=== PATIENT | female | born 1990 | race Caucasian/White ===

== ENCOUNTER → 2017-12-01 12:44 | Outpatient (CLI) | payer MEDICAID, SELFPAY ==
[2017-11-17 09:31] VITALS: BP 120/76; BMI 36.1
== END ==
PROVIDERS: Visit Provider Obstetrics & Gynecology
DX: O23.41 Unspecified infection of urinary tract in pregnancy, first trimester (principal); Z3A.00 Weeks of gestation of pregnancy not specified
CPT/HCPCS: 87070; 87077; 87086; 87088; 87205

== ENCOUNTER → 2017-12-27 10:50 | Outpatient (CLI) | payer MEDICAID, SELFPAY ==
[2017-12-27 11:00] LABS: Mucous, Urine 0 SEEN /hpf (<or=2+)
[2017-12-27 12:53] LABS: Glucose, Dipstick Normal (Normal); Ketone-Dipstick 5 mg/dl (Negative); Leukocyte Esterase-Dipstick 500 /ul (Negative); Nitrite-Dipstick Negative (Negative); Occult Blood-Urine 250 /ul (Negative); Protein-Dipstick 30 mg/dl (Negative); Urine Bilirubin Dipstick Negative (Negative); Urine Urobilinogen Normal (Normal)
[2017-12-27 12:54] LABS: Color, Urine Yellow (Yellow); Urine Clarity Cloudy (Clear)
[2017-12-27 12:56] LABS: Bacteria 3+ /hpf (None Seen); Red Blood Cells-Urine 10-25 SEEN /hpf (0-5); Squamous Epithelial Cells - UA 5-10 SEEN /hpf (5-10); White Blood Cells 10-25 SEEN /hpf (0-5)
== END ==
DX: R31.9 Hematuria, unspecified (principal)
CPT/HCPCS: 81001; 87086; 87088; 87186

== ENCOUNTER → 2018-01-07 10:51 | Outpatient (CLI) | payer MEDICAID, SELFPAY ==
[2018-01-07 11:48] LABS: Absolute Lymphocyte Count 2.73 X10^3/ul (0.83-4.51); Absolute Neutrophil Count 5.9 X10^3/uL (2.0-7.7); Basophil# 0.02 X10^3/uL; Basophil% 0.2 % (0-1); Eosinophil# 0.07 X10^3/uL; Eosinophils% 0.7 % (0-5); Hematocrit 35.6 % (37-47); Hemoglobin 11.9 g/dl (12.0-15.0); Lymphocyte # 2.73 X10^3/ul (4.0); Lymphocyte % 28.1 % (19-41); Mean Corp Hgb Conc 33.4 g/gl (32-36); Mean Corpuscular Hgb 27.5 pg (27.0-32.0); Mean Corpuscular Volume 82.4 fL (81-99); Mean Platelet Vol. 13.1 fl (6.2-12.0); Monocyte# 0.94 X10^3/uL; Monocyte% 9.7 % (0-10); Neutrophil # 5.89 X10^3/uL (2.7-7.7); Neutrophil % 60.8 % (47-70); POSITIVE COUNT NO; POSITIVE DIFFERENTIAL NO; POSITIVE MORPHOLOGY NO; Platelet Count 224 K/mm3 (150-450); RBC Distribution Width SD 38.4 fl (35.1-43.9); Red Blood Count 4.32 M/mm3 (4.2-5.4); White Blood Count 9.7 K/mm3 (4.4-11.0)
[2018-01-07 12:26] LABS: ALB/GLOB Ratio 0.5 RATIO (0.9-2.4); AST(SGOT) 13 U/L (15-37); Alanine Aminotransfer ALT/SGPT 11 U/L (13-56); Albumin, Serum 2.4 g/dL (3.2-5.0); Alkaline Phosphatase 120 U/L (45-117); Anion Gap 9 (5-15); BUN 11 mg/dL (7-18); BUN/Creat Ratio 23.2 RATIO (10-20); Calcium,Total 8.7 mg/dL (8.5-10.1); Chloride 107 mmol/L (98-107); Creatinine, Serum 0.47 mg/dL (0.55-1.02); EST Glomerular Filtration Rate 166 mL/min (>60); Est Glom Filt Rate - Afr Amer 201 mL/min (>60); Globulin 4.6 g/dL (2.2-4.2); Glucose 91 mg/dL (74-106); LDH 166 U/L (84-246); Sodium Level 139 mmol/L (136-145); Uric Acid 4.2 mg/dL (2.6-6.0)
[2018-01-07 13:11] LABS: Protein, Urine (Random) 49.8 mg/dL (<11.9); Protein:Creat Ratio 429 mg/g CRE (0-200)
[2018-01-07 14:34] LABS: HIV - WCH Non-Reactive (Nonreactive); Rubella IgG 53.7 IU/mL
[2018-01-14 03:10] LABS: Rapid Plasmin Reagin (RPR) NONREACTIVE (NONREACTIVE)
== END ==
PROVIDERS: Visit Provider Obstetrics & Gynecology
DX: O09.92 Supervision of high risk pregnancy, unspecified, second trimester (principal); O10.919 Unspecified pre-existing hypertension complicating pregnancy, unspecified trimester; Z3A.00 Weeks of gestation of pregnancy not specified
CPT/HCPCS: 36415; 80053; 82570; 83615; 84156; 84550; 85025; 86592; 86703; 86762; 86850; 86900

== ENCOUNTER → 2018-01-07 14:51 | Outpatient (CLI) | payer MEDICAID, SELFPAY ==
[2018-01-07 15:29] LABS: Protein, Urine (Random) 78.7 mg/dL (<11.9); Protein:Creat Ratio 463 mg/g CRE (0-200)
[2018-01-07 16:06] LABS: Group B Strep DNA By PCR POSITIVE (Negative); Probe Check PASS
== END ==
PROVIDERS: Visit Provider Obstetrics & Gynecology
DX: O09.92 Supervision of high risk pregnancy, unspecified, second trimester (principal); O10.919 Unspecified pre-existing hypertension complicating pregnancy, unspecified trimester; Z3A.00 Weeks of gestation of pregnancy not specified
CPT/HCPCS: 82570; 84156; 87653

== ENCOUNTER 2018-01-09 18:35 | Inpatient (IN) | payer MEDICAID, SELFPAY ==
[2018-01-08 15:08] VITALS: BMI 38.8
[2018-01-08 16:02] LABS: Hematocrit 36.2 % (37-47); Hemoglobin 12.1 g/dl (12.0-15.0); Mean Corp Hgb Conc 33.4 g/gl (32-36); Mean Corpuscular Hgb 27.6 pg (27.0-32.0); Mean Corpuscular Volume 82.5 fL (81-99); Mean Platelet Vol. 13.7 fl (6.2-12.0); Platelet Count 235 K/mm3 (150-450); RBC Distribution Width CV 13.2 % (11.6-14.6); Red Blood Count 4.39 M/mm3 (4.2-5.4); White Blood Count 10.2 K/mm3 (4.4-11.0)
[2018-01-08 16:06] LABS: Bedside Glucose 72 mg/dL (70-110)
[2018-01-08 16:07] LABS: Scan Indicated on CBC? Y/N NO
[2018-01-08 16:13] LABS: AST(SGOT) 14 U/L (15-37); Alanine Aminotransfer ALT/SGPT 10 U/L (13-56); Creatinine, Serum 0.43 mg/dL (0.55-1.02); EST Glomerular Filtration Rate 184 mL/min (>60); Est Glom Filt Rate - Afr Amer 222 mL/min (>60); Estimated Creatinine Clearance 203.56 ml/min; Uric Acid 4.3 mg/dL (2.6-6.0)
[2018-01-08 16:40] LABS: Protein, Urine (Random) 108.3 mg/dL (<11.9); Protein:Creat Ratio 418 mg/g CRE (0-200)
[2018-01-08 16:49] LABS: International Normalized Ratio 1.1; Partial Thromboplast Time 29.3 Seconds (24.1-36.2); Prothrombin Time (Protime)PT. 13.9 SECONDS (11.7-14.9)
[2018-01-08] MEDS: NIFEdipine 30 MG Tablet PO (17:00)
[2018-01-08] MEDS: Cephalexin 500 MG Capsule PO ×2 (17:01→22:58)
[2018-01-08 19:56] LABS: Bedside Glucose 152 mg/dL (70-110)
[2018-01-08] MEDS: Insulin NPH Human 100 UNITS/ML PEN 13 UNITS SC (21:59)
[2018-01-08] MEDS: Acetaminophen 325 MG Tablet 650 MG PO (22:58)
[2018-01-09] VITALS (11 sets, daily range): BP systolic 145–186; BP diastolic 72–96; PULSE 85–112; RESP 18–20; TEMP 36.4–36.8; O2SAT 96–98
[2018-01-09] MEDS: Cephalexin 500 MG Capsule PO ×3 (05:31→22:26)
[2018-01-09 05:46] LABS: Bedside Glucose 130 mg/dL (70-110)
--- NOTE | 2018-01-09 06:34 | PCM.HP.OB ---
- Problem List (1) Pre-eclampsia superimposed on chronic hypertension Status: Acute (2) Polyhydramnios Status: Acute Qualifiers: Comment: Seen at follow up growth US with M on 12/02/17 (3) Supervision of high-risk Status: Acute Qualifiers: Comment: PRR DAVID 02/18/18 adeline Whelan Nikita (4) Diabetes mellitus affecting in second trimester Status: Acute Comment: Class B follows with [facility], testing 2 times a week starting at 32 weeks, growth assessment every 4 weeks, co-manage visit in [address] Manuel Swain. (5) History of pre-eclampsia in prior , currently in second trimester Status: Acute Comment: severe preeclampsia delivered at 28 weeks. negative APL workup, on baby ASA (6) History of delivery, currently Status: Acute Comment: considering - 63.7 percent chance of success, info given and consent signed plans TL (7) UTI (urinary tract infection) in in first trimester Status: Acute Comment: several utis- recommend daily keflex to prevent (8) Chronic hypertension affecting Status: Acute Comment: procardia 60mg XL History Date of Admission: 01/08/18 Final DAVID: 02/18/18 Gestational age: 34 Weeks and 2 Days History of this : 27 yo @ 34w1d presents with superimposed preeclampsia on cHTN. she has had chtn well controlled in this and then recently developed elevated bps and proteinuria yesterday. she denies any ALDRICH or BV. she has had some nausea and vomiting. she denies any vb lof and admits good fm. BS are well controlled on insulin. Pertinent Past Medical History: Medical History Diabetes (Acute) Preeclampsia (Acute) Hypertension (Chronic) Surgical History delivery delivered (Acute) Family History Grandmother Diabetes Hypertension Breast cancer Cancer Lung Grandfather Diabetes Father Diabetes Social History Smoking Status: Never smoker alcohol intake: never substance use type: does not use what type of physical activity do you participate in: none seatbelt use: always do you feel safe at home: Yes additional social history: Spouse Yuval Pregancy History 2 Elective abortions Hx Para 1 Spontaneous abortions Hx # Term Pregnancies Ectopic pregnancies Hx # Pregnancies Multiple births # of living children Past Pregnancies Del. Date Name GA/Weeks Outcome Route Bth Weight Infant Gen Labor Lgth Anesthesia Del Locatn Provider FOB Unknown 2010 Abrial 28 live - severe preeclampsia 2lbs 3oz Female [facility] Allergies No Known Allergies Allergy (Verified 01/08/18 15:15) Current Medications Acetaminophen (Tylenol) 650 mg PO Q6H PRN PRN PRN Reason: PAIN Last Admin: 01/08/18 22:58 Dose: 650 mg Cephalexin (Keflex) 500 mg PO TID DESTINY Last Admin: 01/09/18 05:31 Dose: 500 mg Dexamethasone Sodium Phosphate (Decadron) 6 mg IM Q12H DESTINY Stop: 01/10/18 05:01 Last Admin: 01/09/18 05:31 Dose: 6 mg Insulin Aspart (Novolog Flexpen (Bkc)) 17 units SC BREAKFAST DESTINY Insulin Aspart (Novolog Flexpen (Bkc)) 13 units SC LUNCH DESTINY Insulin Aspart (Novolog Flexpen (Bkc)) 26 units SC SUPPER DESTINY Insulin Human NPH (Humulin N (Bkc)) 13 units SC QHS DESTINY Last Admin: 01/08/18 21:59 Dose: 13 units Insulin Human NPH (Humulin N (Bkc)) 37 units SC BREAKFAST DESTINY Nifedipine (Procardia Xl) 60 mg PO DAILY [facility] Smoking Status: Never smoker Alcohol: None Drug Use: none Number of Fetus(es): 1 - fhts 140s moderate variability reactive no decels category I tracing toco irritability Review of Systems Constitutional: Denies: Chills, Fever, Weight Change Eyes: Denies: Blurred vision HEENT: Denies: Head Aches, Sinus Congestion, Sinus Drainage Cardiovascular: Denies: Chest Pain, Palpitations Respiratory: Denies: Cough, Shortness of breath at rest, Sputum production Gastrointestinal: Reports: Nausea, Vomiting. Denies: Abdominal Pain Genitourinary: Denies: Dysuria Gynecological: Denies: Vaginal bleeding, Vaginal discharge Musculoskeletal: Denies: Joint Pain, Joint Tenderness Skin: Denies: Rash, Wounds Neurological: Denies: Numbness, Tingling, Focal weakness Psychiatric: Denies: Anxiety, Depression Hematologic/ Lymphatic: Denies: Easy Bruising, Easy Bleeding Physical Exam General: Alert, Oriented x3, No apparent distress Cardiovascular: Regular rate Lungs: Normal air movement Abdomen: Soft, Non Tender, Gravid Extremities:: No edema Estimated gestational size: Large for gestational age Presentation: Cephalic Assessment/Plan Active and Suspected Problems (Last Reviewed 01/07/18 @ 09:53 by Glo Restrepo) Pre-eclampsia superimposed on chronic hypertension (Acute) 27 yo @ 34w1d presents with cHTN and SI preeclampsia with mild features 1. cHTN with SI preeclampsia with mild features- admit for STO, monitor bps, check labs and repeat urine protein creatinine ratio. continue procardia 60mg XL 2. prematurity- previous reaction to BMZ will give dexamethasone 3. previous csection- if cervix favorable or IAL plan TOLAC otherwise plan RLTCS and BTL 4. polyhdramnios 5. insulin dependent diabetes- increase all insulin 10% except dinner insulin due to low blood sugar this afternoon secondary to skipping lunch 6. recurrent UTI- on keflex treatment right now plan prophylaxis afterwards
--- NOTE | 2018-01-09 06:37 | HP.PCM_ITS ---
- Problem List (1) Pre-eclampsia superimposed on chronic hypertension Status: Acute (2) Polyhydramnios Status: Acute Qualifiers: Comment: Seen at follow up growth US with M on 12/02/17 (3) Supervision of high-risk Status: Acute Qualifiers: Comment: PRR DAVID 02/18/18 adeline Whelan Nikita (4) Diabetes mellitus affecting in second trimester Status: Acute Comment: Class B [facility], testing 2 times a week starting at 32 weeks, growth assessment every 4 weeks, co-manage visit in [address] Manuel Swain. (5) History of pre-eclampsia in prior , currently in second trimester Status: Acute Comment: severe preeclampsia delivered at 28 weeks. negative APL workup, on baby ASA (6) History of delivery, currently Status: Acute Comment: considering - 63.7 percent chance of success, info given and consent signed plans TL (7) UTI (urinary tract infection) in in first trimester Status: Acute Comment: several utis- recommend daily keflex to prevent (8) Chronic hypertension affecting Status: Acute Comment: procardia 60mg XL History Date of Admission: 01/08/18 Final DAVID: 02/18/18 Gestational age: 34 Weeks and 2 Days History of this : 27 yo @ 34w1d presents with superimposed preeclampsia on cHTN. she has had chtn well controlled in this and then recently developed elevated bps and proteinuria yesterday. she denies any ALDRICH or BV. she has had some nausea and vomiting. she denies any vb lof and admits good fm. BS are well controlled on insulin. Pertinent Past Medical History: Medical History Diabetes (Acute) Preeclampsia (Acute) Hypertension (Chronic) Surgical History delivery delivered (Acute) Family History Grandmother Diabetes Hypertension Breast cancer Cancer Lung Grandfather Diabetes Father Diabetes Social History Smoking Status: Never smoker alcohol intake: never substance use type: does not use what type of physical activity do you participate in: none seatbelt use: always do you feel safe at home: Yes additional social history: Spouse Yuval Pregancy History 2 2 Elective abortions Hx Para 1 Spontaneous abortions Hx # Term Pregnancies Ectopic pregnancies Hx # Pregnancies Multiple births # of living children Past Pregnancies Del. Date Name GA/Weeks Outcome Route Bth Weight Infant Gen Labor Lgth Anesthesia Del [place] Provider FOB Unknown 2010 Abrial 28 live - severe preeclampsia 2lbs 3oz Female [facility] Allergies No Known Allergies Allergy (Verified 01/08/18 15:15) Current Medications Acetaminophen (Tylenol) 650 mg PO Q6H PRN PRN PRN Reason: PAIN Last Admin: 01/08/18 22:58 Dose: 650 mg Cephalexin (Keflex) 500 mg PO TID DESTINY Last Admin: 01/09/18 05:31 Dose: 500 mg Dexamethasone Sodium Phosphate (Decadron) 6 mg IM Q12H DESTINY Stop: 01/10/18 05:01 Last Admin: 01/09/18 05:31 Dose: 6 mg Insulin Aspart (Novolog Flexpen (Bkc)) 17 units SC BREAKFAST DESTINY Insulin Aspart (Novolog Flexpen (Bkc)) 13 units SC LUNCH DESTINY Insulin Aspart (Novolog Flexpen (Bkc)) 26 units SC SUPPER DESTINY Insulin Human NPH (Humulin N (Bkc)) 13 units SC QHS DESTINY Last Admin: 01/08/18 21:59 Dose: 13 units Insulin Human NPH (Humulin N (Bkc)) 37 units SC BREAKFAST DESTINY Nifedipine (Procardia Xl) 60 mg PO DAILY [facility] Smoking Status: Never smoker Alcohol: None Drug Use: none Number of Fetus(es): 1 - fhts 140s moderate variability reactive no decels category I tracing toco irritability Review of Systems Constitutional: Denies: Chills, Fever, Weight Change Eyes: Denies: Blurred vision HEENT: Denies: Head Aches, Sinus Congestion, Sinus Drainage Cardiovascular: Denies: Chest Pain, Palpitations Respiratory: Denies: Cough, Shortness of breath at rest, Sputum production Gastrointestinal: Reports: Nausea, Vomiting. Denies: Abdominal Pain Genitourinary: Denies: Dysuria Gynecological: Denies: Vaginal bleeding, Vaginal discharge Musculoskeletal: Denies: Joint Pain, Joint Tenderness Skin: Denies: Rash, Wounds Neurological: Denies: Numbness, Tingling, Focal weakness Psychiatric: Denies: Anxiety, Depression Hematologic/ Lymphatic: Denies: Easy Bruising, Easy Bleeding Physical Exam General: Alert, Oriented x3, No apparent distress Cardiovascular: Regular rate Lungs: Normal air movement Abdomen: Soft, Non Tender, Gravid Extremities:: No edema Estimated gestational size: Large for gestational age Presentation: Cephalic Assessment/Plan Active and Suspected Problems (Last Reviewed 01/07/18 @ 09:53 by Glo Restrepo) Pre-eclampsia superimposed on chronic hypertension (Acute) 27 yo @ 34w1d presents with cHTN and SI preeclampsia with mild features 1. cHTN with SI preeclampsia with mild features- admit for STO, monitor bps, check labs and repeat urine protein creatinine ratio. continue procardia 60mg XL 2. prematurity- previous reaction to BMZ will give dexamethasone 3. previous csection- if cervix favorable or IAL plan TOLAC otherwise plan RLTCS and BTL 4. polyhdramnios 5. insulin dependent diabetes- increase all insulin 10% except dinner insulin due to low blood sugar this afternoon secondary to skipping lunch 6. recurrent UTI- on keflex treatment right now plan prophylaxis afterwards
[2018-01-09] MEDS: 0.9 % NaCl (Sterile) Posiflush 10 mL IV ×2 (06:44→17:47)
--- NOTE | 2018-01-09 06:44 | PN.OBGYN_ITS ---
Patient Problems: Active and Suspected Problems (Last Reviewed 01/07/18 @ 09:53 by Glo Restrepo) Pre-eclampsia superimposed on chronic hypertension (Acute) Subjective: doing well bps stable normal to mildly elevated no ALDRICH BV NV - Physical Exam General: Alert, Oriented x3 Weight: 263 lb 0.183 oz Body Mass Index (BMI) 38.8 Finger Stick Blood Glucose 156 Laboratory Tests Past 24 Hrs 01/08/18 01/08/18 01/08/18 15:20 15:20 15:20 WBC 10.2 RBC 4.39 Hgb 12.1 Hct 36.2 L MCV 82.5 MCH 27.6 MCHC 33.4 RDW 13.2 RDW Differential 40.0 Plt Count 235 MPV 13.7 H PT 13.9 INR 1.1 APTT 29.3 Creatinine 0.43 L Estim Creat Clear Calc 203.56 Est GFR (MDRD) Af Amer 222 Est GFR (MDRD) Non-Af 184 Uric Acid 4.3 AST 14 L ALT 10 L U Random Total Protein Urine Creatinine Protein/Creatinin Ratio 01/08/18 16:10 WBC RBC Hgb Hct MCV MCH MCHC RDW RDW Differential Plt Count MPV PT INR APTT Creatinine Estim Creat Clear Calc Est GFR (MDRD) Af Amer Est GFR (MDRD) Non-Af Uric Acid AST ALT U Random Total Protein 108.3 H Urine Creatinine 259.00 Protein/Creatinin Ratio 418 H POC Glucose 01/09/18 01/08/18 01/08/18 05:28 19:48 15:56 POC Glucose 130 H 152 H 72 Medical Necessity - Tobacco Use Smoking Status: Never smoker Assessment/Plan Active and Suspected Problems (Last Reviewed 01/07/18 @ 09:53 by Glo Restrepo) Pre-eclampsia superimposed on chronic hypertension (Acute) 27 yo @ 34w1d presents with cHTN and SI preeclampsia with mild features 1. cHTN with SI preeclampsia with mild features- STO, continue procardia 60mg XL , stable 2. prematurity- dexamethasone anticipate discharge after last dose 3. previous csection- if cervix favorable or IAL plan TOLAC otherwise plan RLTCS and BTL 4. polyhdramnios 5. insulin dependent diabetes- continue increased insulin regimen due to steroid administration. increase dinner and bedtime insulin 6. recurrent UTI- on keflex treatment right now plan prophylaxis afterwards
[2018-01-09] MEDS: Insulin NPH Human 100 UNITS/ML PEN 37 UNITS SC (09:12)
[2018-01-09] MEDS: NIFEdipine 60 MG Tablet PO (09:18)
[2018-01-09 10:46] LABS: Bedside Glucose 213 mg/dL (70-110)
[2018-01-09] MEDS: Acetaminophen 325 MG Tablet 650 MG PO (11:02)
[2018-01-09 14:26] LABS: Bedside Glucose 174 mg/dL (70-110)
[2018-01-09] MEDS: oxyCODONE 5 MG Tablet PO (16:30)
[2018-01-09 16:32] LABS: Hematocrit 33.5 % (37-47); Hemoglobin 11.2 g/dl (12.0-15.0); Mean Corp Hgb Conc 33.4 g/gl (32-36); Mean Corpuscular Hgb 27.6 pg (27.0-32.0); Mean Corpuscular Volume 82.5 fL (81-99); Mean Platelet Vol. 12.9 fl (6.2-12.0); Platelet Count 219 K/mm3 (150-450); RBC Distribution Width CV 13.2 % (11.6-14.6); RBC Distribution Width SD 40.1 fl (35.1-43.9); Red Blood Count 4.06 M/mm3 (4.2-5.4); White Blood Count 11.9 K/mm3 (4.4-11.0)
[2018-01-09 16:33] LABS: Scan Indicated on CBC? Y/N NO
[2018-01-09 17:02] LABS: ALB/GLOB Ratio 0.5 RATIO (0.9-2.4); AST(SGOT) 13 U/L (15-37); Alanine Aminotransfer ALT/SGPT 12 U/L (13-56); Albumin, Serum 2.3 g/dL (3.2-5.0); Alkaline Phosphatase 120 U/L (45-117); Anion Gap 12 (5-15); BUN 17 mg/dL (7-18); BUN/Creat Ratio 24.9 RATIO (10-20); Calcium,Total 8.5 mg/dL (8.5-10.1); Chloride 105 mmol/L (98-107); Creatinine, Serum 0.68 mg/dL (0.55-1.02); EST Glomerular Filtration Rate 109 mL/min (>60); Est Glom Filt Rate - Afr Amer 132 mL/min (>60); Estimated Creatinine Clearance 128.72 ml/min; Globulin 4.6 g/dL (2.2-4.2); Glucose 179 mg/dL (74-106); Protein, Total 6.9 g/dL (6.4-8.2); Sodium Level 138 mmol/L (136-145)
[2018-01-09] MEDS: 0.9% Saline Lock 10 ML Syringe IV (18:45)
[2018-01-09] MEDS: Sodium Citrate/Citric Acid 30 ML UDC PO (18:55)
--- NOTE | 2018-01-09 18:56 | PCM.PN.OB ---
Patient Problems: Active and Suspected Problems (Last Reviewed 01/07/18 @ 09:53 by Glo Restrepo) Pre-eclampsia superimposed on chronic hypertension (Acute) - Physical Exam General: Alert, Oriented x3 Lungs: Normal air movement Cardiovascular: Regular rate Abdomen: Soft, Non Tender, Gravid Extremities: Edema Skin: No rashes Weight: 263 lb 0.183 oz Body Mass Index (BMI) 38.8 Finger Stick Blood Glucose 156 Laboratory Tests Past 24 Hrs 01/09/18 01/09/18 16:15 16:15 WBC 11.9 H RBC 4.06 L Hgb 11.2 L Hct 33.5 L MCV 82.5 MCH 27.6 MCHC 33.4 RDW 13.2 RDW Differential 40.1 Plt Count 219 MPV 12.9 H Sodium 138 Potassium 4.0 Chloride 105 Carbon Dioxide 21.0 Anion Gap 12 BUN 17 Creatinine 0.68 Estim Creat Clear Calc 128.72 Est GFR (MDRD) Af Amer 132 Est GFR (MDRD) Non-Af 109 BUN/Creatinine Ratio 24.9 H Glucose 179 H Calcium 8.5 Total Bilirubin 0.20 AST 13 L ALT 12 L Alkaline Phosphatase 120 H Total Protein 6.9 Albumin 2.3 L Globulin 4.6 H Albumin/Globulin Ratio 0.5 L POC Glucose 01/09/18 01/09/18 01/09/18 14:17 10:40 05:28 POC Glucose 174 H 213 H 130 H 01/08/18 19:48 POC Glucose 152 H Medical Necessity - Tobacco Use Smoking Status: Never smoker Assessment/Plan Active and Suspected Problems (Last Reviewed 01/07/18 @ 09:53 by Glo Restrepo) Pre-eclampsia superimposed on chronic hypertension (Acute) 27 yo @ 34w1d presents with cHTN and SI preeclampsia with severe features 1. new onset severe features, headache with severely elevated bps. discussed with MFM- recommend immediate delivery. start magnesium and give iv labetalol PRN 2. prematurity- s/p 24 hour dexamethasone 3. previous csection- unfavorable cervix recommend immediate csection. patient still desires BTL. 4. diabetes- check bs now-154 give 2 units novolog right now
[2018-01-09] MEDS: Lactated Ringers 1,000 ML 999 ML IV (19:04)
[2018-01-09 19:15] LABS: Bedside Glucose 158 mg/dL (70-110)
[2018-01-09] MEDS: Oxytocin 30 units/NS 500 ml 30 UNITS/500 ML IV.SOLN 167 UNITS IV (19:54)
--- NOTE | 2018-01-09 20:00 | FALS_PTH ---
PATIENT: EVA CASTRO LOC: WP U#:[id number] AGE/SX: 27/F ROOM: WP013 RE01/09/[address]: Dr. Ainsley Calderon MD : 1990 BED: 1 DIS: 01/11/2018 SPEC #: [id number] RECD: 01/09/18 22:30 STATUS: JAYSON KASSI #: [id number] BRITTANY: 01/09/18 20:[address]: Ainsley Calderon DEPT: SURGICAL PATHOLOGY RECD BY: José Miguel Moon ENTERED: 01/10/18 13:04 SP TYPE: FALL TUBES OTHR DR: No Primary Care Phys Tissues: Fallopian tube Procedures: Surgery Specimen Level II HEADER OPERATION: Bilateral salpingectomy PRE-OP DIAGNOSIS: Not noted TISSUE SUBMITTED: Fallopian tubes MICROSCOPIC DIAGNOSIS Bilateral fallopian tubes, bilateral salpingectomy: Completely transected segment of bilateral fallopian tubes, no pathologic diagnosis. ROBERT:marly 01/11/18 MICROSCOPIC DESCRIPTION Slides are reviewed. GROSS DESCRIPTION Received is one container labeled with the patient's name and not further designated. The specimen consists of two tubular pieces of stark soft tissue consistent with portion of fallopian tube. The fimbrial end is not identified. The right tube is identified by a suture. The right tube measures 3 cm in length and 0.5 cm in diameter. The left tube measures 3 cm in length and 0.5 cm in diameter. The entire specimen is submitted in two cassettes as follows: 1 - right fallopian tube, 2 - left fallopian tube. Both pieces will be serially sectioned at the time of embedding. / SJ:marly 01/10/18 TC:4 CPT: 03180 x2
[2018-01-09] MEDS: Ketorolac 30 MG/ML Syringe IV (20:22)
--- NOTE | 2018-01-09 20:36 | PCM.OPRPT ---
Problem List (1) Pre-eclampsia superimposed on chronic hypertension Status: Acute (2) Polyhydramnios Status: Acute Qualifiers: Comment: Seen at follow up growth US with M on 12/02/17 (3) Supervision of high-risk Status: Acute Qualifiers: Comment: PRR DAIVD 02/18/18 boy Bronson Whelan Nikita (4) Diabetes mellitus affecting in second trimester Status: Acute Comment: Class B follows with [facility], testing 2 times a week starting at 32 weeks, growth assessment every 4 weeks, co-manage visit in [address] Manuel Swain. (5) History of pre-eclampsia in prior , currently in second trimester Status: Acute Comment: severe preeclampsia delivered at 28 weeks. negative APL workup, on baby ASA (6) History of delivery, currently Status: Acute Comment: considering - 63.7 percent chance of success, info given and consent signed plans TL (7) UTI (urinary tract infection) in in first trimester Status: Acute Comment: several utis- recommend daily keflex to prevent (8) Chronic hypertension affecting Status: Acute Comment: procardia 60mg XL Report of Operation Date of Procedure: 01/09/18 Pre-Operative Diagnosis: Insulin-dependent diabetes, chronic hypertension with superimposed preeclampsia with severe features, previous , desired sterilization, 34 weeks 2 days Post-Operative Diagnosis: Same Surgery/Procedure Performed:: Repeat low transverse and bilateral tubal ligation Via Metcalfe method Description of Surgical Findings:: Normal uterus tubes and ovaries 2 cm fundal subserosal fibroid, thin lower uterine segment, minimal scar tissue trashman: Chayo Presley Type of Anesthesia:: Spinal Special Medications: Ancef, magnesium Specimen's removed: Male infant vertex presentation Drains: Catheter Estimated Blood Loss (mL): 800cc Fluids Replaced: Crystalloid Description of Procedure: The patient is a 27-year-old at 4 weeks 2 days presents with insulin-dependent diabetes chronic hypertension with superimposed preeclampsia with severe features. Patient presented for monitoring and steroids and initially had mildly elevated blood pressures and then after 24 hours developed severely elevated blood pressure persistent headache. Phone consultation with [facility] recommended immediate delivery. Spinal anesthesia was placed without difficulty. Patiño catheter was placed. The patient was placed in the dorsal supine position with leftward tilt. Patient was prepped and draped in the normal sterile fashion. Pfannenstiel skin incision was made with the scalpel and carried through to the underlying layer of fascia with the scalpel. Fascia was nicked in the midline and the incision extended laterally. The rectus bellies were dissected off superiorly and inferiorly with out complication both sharply and bluntly. The peritoneum was entered digitally. The incision was stretched and a low transverse uterine incision was made with the scalpel. The infant's head was delivered atraumatically followed by the anterior and posterior shoulders without complication the rest of the infant delivered. The cord was clamped and cut and the infant was handed off to awaiting nurse. The placenta was delivered spontaneously immediately following and was noted to be intact and have a three-vessel cord. The uterus was exteriorized cleared of all clots and debris, and the incision was closed using #1 Monocryl. Bilateral fallopian tubes were elevated and the mesosalpinx incised with the Bovie and fallopian tubes were transected proximally and distally after tying with plain gut suture. Excellent hemostasis was noted. The uterus was returned to the maternal abdomen and gutters were cleared of all clots and debris. The ovaries and fallopian tubes were noted to be within normal limits. The peritoneum was closed with 3-0 Monocryl in a running fashion. Fascia was closed with 0 PDS in a running fashion. Subcutaneous tissue was copiously irrigated and the skin was closed with 3-0 Monocryl in a subcuticular fashion. Steri-Strips and Mepilex dressing were applied without complication. Patient was taken to recovery in stable condition. Grafts/Implants Used: None - Complications None
--- NOTE | 2018-01-09 20:40 | OP.PCM_ITS ---
Problem List (1) Pre-eclampsia superimposed on chronic hypertension Status: Acute (2) Polyhydramnios Status: Acute Qualifiers: Comment: Seen at follow up growth US with M on 12/02/17 (3) Supervision of high-risk Status: Acute Qualifiers: Comment: PRR DAVID 02/18/18 boy Bronson Whelan Nikita (4) Diabetes mellitus affecting in second trimester Status: Acute Comment: Class B follows with [facility], testing 2 times a week starting at 32 weeks, growth assessment every 4 weeks, co-manage visit in [address] Manuel Sawin. (5) History of pre-eclampsia in prior , currently in second trimester Status: Acute Comment: severe preeclampsia delivered at 28 weeks. negative APL workup, on baby ASA (6) History of delivery, currently Status: Acute Comment: considering - 63.7 percent chance of success, info given and consent signed plans TL (7) UTI (urinary tract infection) in in first trimester Status: Acute Comment: several utis- recommend daily keflex to prevent (8) Chronic hypertension affecting Status: Acute Comment: procardia 60mg XL Report of Operation Date of Procedure: 01/09/18 Pre-Operative Diagnosis: Insulin-dependent diabetes, chronic hypertension with superimposed preeclampsia with severe features, previous , desired sterilization, 34 weeks 2 days Post-Operative Diagnosis: Same Surgery/Procedure Performed:: Repeat low transverse and bilateral tubal ligation Via Foley method Description of Surgical Findings:: Normal uterus tubes and ovaries 2 cm fundal subserosal fibroid, thin lower uterine segment, minimal scar tissue wardrobe specialist: Chayo Presley Type of Anesthesia:: Spinal Special Medications: Ancef, magnesium Specimen's removed: Male infant vertex presentation Drains: Catheter Estimated Blood Loss (mL): 800cc Fluids Replaced: Crystalloid Description of Procedure: The patient is a 27-year-old at 4 weeks 2 days presents with insulin- dependent diabetes chronic hypertension with superimposed preeclampsia with severe features. Patient presented for monitoring and steroids and initially had mildly elevated blood pressures and then after 24 hours developed severely elevated blood pressure persistent headache. Phone consultation with [facility] recommended immediate delivery. Spinal anesthesia was placed without difficulty. Patiño catheter was placed. The patient was placed in the dorsal supine position with leftward tilt. Patient was prepped and draped in the normal sterile fashion. Pfannenstiel skin incision was made with the scalpel and carried through to the underlying layer of fascia with the scalpel. Fascia was nicked in the midline and the incision extended laterally. The rectus bellies were dissected off superiorly and inferiorly with out complication both sharply and bluntly. The peritoneum was entered digitally. The incision was stretched and a low transverse uterine incision was made with the scalpel. The 's head was delivered atraumatically followed by the anterior and posterior shoulders without complication the rest of the infant delivered. The cord was clamped and cut and the was handed off to awaiting nurse. The placenta was delivered spontaneously immediately following and was noted to be intact and have a three-vessel cord. The uterus was exteriorized cleared of all clots and debris, and the incision was closed using #1 Monocryl. Bilateral fallopian tubes were elevated and the mesosalpinx incised with the Bovie and fallopian tubes were transected proximally and distally after tying with plain gut suture. Excellent hemostasis was noted. The uterus was returned to the maternal abdomen and gutters were cleared of all clots and debris. The ovaries and fallopian tubes were noted to be within normal limits. The peritoneum was closed with 3-0 Monocryl in a running fashion. Fascia was closed with 0 PDS in a running fashion. Subcutaneous tissue was copiously irrigated and the skin was closed with 3-0 Monocryl in a subcuticular fashion. Steri-Strips and Mepilex dressing were applied without complication. Patient was taken to recovery in stable condition. Grafts/Implants Used: None - Complications None
[2018-01-09] MEDS: Magnesium Sulfate 20 GM/500 ML BAG IV (21:51)
[2018-01-09 22:31] LABS: Bedside Glucose 138 mg/dL (70-110)
[2018-01-09 22:51] LABS: Bedside Glucose 125 mg/dL (70-110)
[2018-01-09] MEDS: Carboprost Tromethamine 250 MCG/ML Ampul IM (23:20)
[2018-01-10] VITALS (33 sets, daily range): BP systolic 119–158; BP diastolic 56–85; PULSE 62–121; RESP 14–20; TEMP 36.1–37.5; O2SAT 95–100
--- NOTE | 2018-01-10 | NURSING ---
see Magnesium flowsheet for I&O during c/s recovery
[2018-01-10] MEDS: miSOPROStol 200 MCG Tablet 1000 MCG PO (00:02)
[2018-01-10 00:38] LABS: Hemoglobin 10.3 g/dl (12.0-15.0)
[2018-01-10 00:45] LABS: International Normalized Ratio 1.1; Partial Thromboplast Time 27.1 Seconds (24.1-36.2)
--- NOTE | 2018-01-10 00:45 | PCM.PN.OB ---
Patient Problems: Active and Suspected Problems (Last Reviewed 01/07/18 @ 09:53 by Glo Restrepo) Pre-eclampsia superimposed on chronic hypertension (Acute) Subjective: called secondary to increased vaginal bleeding. patient passed several large clots overall 850g of blood. denies any cp sob feels cramping but no severe pain. - Physical Exam General: Alert, Oriented x3 Abdomen: - - fundus firm 1 FB below umbilicus, large amount of clots vaginally, some persistent bleeding vaginally. bedside ultrasound shows thin lining 10-15 mm Vital Signs Temp Pulse Resp BP Pulse Ox 97.5 F L 112 H 20 H 149/77 H 96 01/09/18 23:15 01/09/18 23:15 01/09/18 23:15 01/09/18 23:15 01/09/18 23:15 Oxygen Delivery Method Room Air Weight: 263 lb 0.183 oz Body Mass Index (BMI) 38.8 Finger Stick Blood Glucose 156 Intake and Output for Last 24 Hours 01/08/18 01/09/18 01/10/18 23:59 23:59 23:59 Intake Total 400 / 400 Output Total 247 / 247 Balance 153 / 153 Laboratory Tests Past 24 Hrs 01/09/18 01/09/18 01/10/18 16:15 16:15 00:25 WBC 11.9 H RBC 4.06 L Hgb 11.2 L 10.3 L Hct 33.5 L MCV 82.5 MCH 27.6 MCHC 33.4 RDW 13.2 RDW Differential 40.1 Plt Count 219 MPV 12.9 H PT INR APTT Sodium 138 Potassium 4.0 Chloride 105 Carbon Dioxide 21.0 Anion Gap 12 BUN 17 Creatinine 0.68 Estim Creat Clear Calc 128.72 Est GFR (MDRD) Af Amer 132 Est GFR (MDRD) Non-Af 109 BUN/Creatinine Ratio 24.9 H Glucose 179 H Calcium 8.5 Total Bilirubin 0.20 AST 13 L ALT 12 L Alkaline Phosphatase 120 H Total Protein 6.9 Albumin 2.3 L Globulin 4.6 H Albumin/Globulin Ratio 0.5 L 01/10/18 00:25 WBC RBC Hgb Hct MCV MCH MCHC RDW RDW Differential Plt Count MPV PT Pending INR Pending APTT Pending Sodium Potassium Chloride Carbon Dioxide Anion Gap BUN Creatinine Estim Creat Clear Calc Est GFR (MDRD) Af Amer Est GFR (MDRD) Non-Af BUN/Creatinine Ratio Glucose Calcium Total Bilirubin AST ALT Alkaline Phosphatase Total Protein Albumin Globulin Albumin/Globulin Ratio POC Glucose 01/09/18 01/09/18 01/09/18 22:31 20:23 19:00 POC Glucose 125 H 138 H 158 H 01/09/18 01/09/18 01/09/18 14:17 10:40 05:28 POC Glucose 174 H 213 H 130 H Medical Necessity - Tobacco Use Smoking Status: Never smoker Assessment/Plan Active and Suspected Problems (Last Reviewed 01/07/18 @ 09:53 by Glo Restrepo) Pre-eclampsia superimposed on chronic hypertension (Acute) 27 yo @ 34w1d presents with cHTN and SI preeclampsia with severe features 1. delayed PPH- large amount of clot with some mild atony- uterotonics given. repeat hemabate dose and cytotec given. hg 10.3 although suspect lower than that. continue to monitor. coag panel ordered
[2018-01-10] MEDS: Carboprost Tromethamine 250 MCG/ML Ampul IM ×2 (00:53→21:12)
--- NOTE | 2018-01-10 01:09 | NURSING ---
At [address] Calderon about patient's increased bleeding, stringy clots noted. Orders received and hemabate 250mcg IM x1 given, 1000mcg PO x1. Fundus firm at U-1. At 0005, Dr. Calderon notified that patient passed an orange sized clot and asked to come to room 13 to assess patient's bleeding. Hemorrhage cart and scale brought to room. 0010 Dr. Calderon in room and performed bedside ultrasound at 0013, manually explored vagina and removed clots by hand at 0015 and 0017. 0020 Bedside ultrasound performed, hemoglobin ordered 0025 second IV placed in right hand by this RN, CBC and coagulation labs drawn. 0035 250ml bolus of LR ordered and started per Dr. Calderon. VS during this time as follows 0014 153/96 115 96% 97.5 0020 163/102 116 98% 0030 168/100 120 96% 0035 162/89 117 97% 0040 145/92 119 98% 0045 157/82 121 98% Pads weighed as follows: 0010 539cc 0020 316cc 0045 82cc totalling 937cc additional blood loss.
[2018-01-10 06:23] LABS: Hematocrit 27.7 % (37-47); Hemoglobin 9.5 g/dl (12.0-15.0); Mean Corp Hgb Conc 34.3 g/gl (32-36); Mean Corpuscular Hgb 28.4 pg (27.0-32.0); Mean Corpuscular Volume 82.7 fL (81-99); Mean Platelet Vol. 13.4 fl (6.2-12.0); Platelet Count 232 K/mm3 (150-450); RBC Distribution Width CV 12.8 % (11.6-14.6); RBC Distribution Width SD 37.3 fl (35.1-43.9); Red Blood Count 3.35 M/mm3 (4.2-5.4); White Blood Count 22.1 K/mm3 (4.4-11.0)
[2018-01-10] MEDS: Cephalexin 500 MG Capsule PO ×3 (06:35→22:00)
[2018-01-10 06:40] LABS: Scan Indicated on CBC? Y/N NO
[2018-01-10 06:49] LABS: ALB/GLOB Ratio 0.5 RATIO (0.9-2.4); AST(SGOT) 15 U/L (15-37); Alanine Aminotransfer ALT/SGPT 10 U/L (13-56); Alkaline Phosphatase 98 U/L (45-117); Anion Gap 9 (5-15); BUN 18 mg/dL (7-18); BUN/Creat Ratio 39.8 RATIO (10-20); Calcium,Total 7.4 mg/dL (8.5-10.1); Chloride 106 mmol/L (98-107); Creatinine, Serum 0.45 mg/dL (0.55-1.02); EST Glomerular Filtration Rate 175 mL/min (>60); Est Glom Filt Rate - Afr Amer 212 mL/min (>60); Estimated Creatinine Clearance 194.51 ml/min; Globulin 3.7 g/dL (2.2-4.2); Glucose 104 mg/dL (74-106); Potassium 4.1 mmol/L (3.5-5.1); Protein, Total 5.7 g/dL (6.4-8.2); Sodium Level 138 mmol/L (136-145)
[2018-01-10] MEDS: Magnesium Sulfate 20 GM/500 ML BAG IV (06:50)
[2018-01-10] MEDS: Enoxaparin 40 MG/0.4 ML Syringe SC (07:45)
[2018-01-10] MEDS: Ketorolac 30 MG/ML Syringe IV ×3 (07:45→20:04)
[2018-01-10 08:15] LABS: Bedside Glucose 88 mg/dL (70-110)
[2018-01-10] MEDS: NIFEdipine 30 MG Tablet PO ×2 (09:55→22:00)
[2018-01-10 11:30] LABS: Bedside Glucose 136 mg/dL (70-110)
[2018-01-10] MEDS: Prenatal Vits Tablet 1 TABLET PO (12:48)
--- NOTE | 2018-01-10 13:32 | NURSING ---
This skilled nursing facilities professional reviewed the charting completed by the student nurse, Madelin Molina, and it is complete for 01/10/18.
[2018-01-10] MEDS: Lactated Ringers 1,000 ML 100 ML IV (14:21)
--- NOTE | 2018-01-10 14:31 | NURSING ---
This assistant in nursing reviewed the charting completed by Ran Jamison student nurse and it is complete.
--- NOTE | 2018-01-10 15:12 | PCM.PN.OB ---
Patient Problems: Active and Suspected Problems (Last Reviewed 01/07/18 @ 09:53 by Glo Restrepo) Pre-eclampsia superimposed on chronic hypertension (Acute) Subjective: doingw ell toleratin gpo no ALDRICH BV - Physical Exam General: Alert, Oriented x3 Vital Signs Temp Pulse Resp BP Pulse Ox 98 F 79 14 119/68 98 01/10/18 13:50 01/10/18 13:50 01/10/18 14:00 01/10/18 13:50 01/10/18 14:00 Oxygen Delivery Method Room Air Weight: 263 lb 0.183 oz Body Mass Index (BMI) 38.8 Finger Stick Blood Glucose 156 Intake and Output for Last 24 Hours 01/08/18 01/09/18 01/10/18 23:59 23:59 23:59 Intake Total 400 / 400 2739 / 2739 Output Total 247 / 247 915 / 915 Balance 153 / 153 1824 / 1824 Laboratory Tests Past 24 Hrs 01/09/18 01/09/18 01/10/18 16:15 16:15 00:25 WBC 11.9 H RBC 4.06 L Hgb 11.2 L 10.3 L Hct 33.5 L MCV 82.5 MCH 27.6 MCHC 33.4 RDW 13.2 RDW Differential 40.1 Plt Count 219 MPV 12.9 H PT INR APTT Sodium 138 Potassium 4.0 Chloride 105 Carbon Dioxide 21.0 Anion Gap 12 BUN 17 Creatinine 0.68 Estim Creat Clear Calc 128.72 Est GFR (MDRD) Af Amer 132 Est GFR (MDRD) Non-Af 109 BUN/Creatinine Ratio 24.9 H Glucose 179 H Calcium 8.5 Total Bilirubin 0.20 AST 13 L ALT 12 L Alkaline Phosphatase 120 H Total Protein 6.9 Albumin 2.3 L Globulin 4.6 H Albumin/Globulin Ratio 0.5 L 01/10/18 01/10/18 01/10/18 00:25 06:00 06:00 WBC 22.1 H RBC 3.35 L Hgb 9.5 L Hct 27.7 L MCV 82.7 MCH 28.4 MCHC 34.3 RDW 12.8 RDW Differential 37.3 Plt Count 232 MPV 13.4 H PT 14.0 INR 1.1 APTT 27.1 Sodium 138 Potassium 4.1 Chloride 106 Carbon Dioxide 23.0 Anion Gap 9 BUN 18 Creatinine 0.45 L Estim Creat Clear Calc 194.51 Est GFR (MDRD) Af Amer 212 Est GFR (MDRD) Non-Af 175 BUN/Creatinine Ratio 39.8 H Glucose 104 Calcium 7.4 L Total Bilirubin 0.20 AST 15 ALT 10 L Alkaline Phosphatase 98 Total Protein 5.7 L Albumin 2.0 L Globulin 3.7 Albumin/Globulin Ratio 0.5 L POC Glucose 01/10/18 01/10/18 01/09/18 11:25 08:06 22:31 POC Glucose 136 H 88 125 H 01/09/18 01/09/18 20:23 19:00 POC Glucose 138 H 158 H Medical Necessity - Tobacco Use Smoking Status: Never smoker Assessment/Plan Active and Suspected Problems (Last Reviewed 01/07/18 @ 09:53 by Glo Restrepo) Pre-eclampsia superimposed on chronic hypertension (Acute) s/p RLTCS BTL preeclampsia- continue magnesium x 24 hours, continue procardia diabetes- started metformin and SSI, diabetic diet lovenox for dvt prophylaxis routine postop care acute blood loss anemia due to secondary hemorrhage- stable doing well
[2018-01-10] MEDS: Lactated Ringers 1,000 ML 15 ML IV (15:47)
[2018-01-10 17:16] LABS: Bedside Glucose 113 mg/dL (70-110)
[2018-01-10] MEDS: 0.9% Saline Lock 10 ML Syringe IV ×2 (18:58→20:04)
[2018-01-10] MEDS: HYDROmorphone 1 MG/ML Syringe IV (21:14)
[2018-01-10] MEDS: Oxytocin 30 units/NS 500 ml 30 UNITS/500 ML IV.SOLN 334 UNITS IV (21:16)
[2018-01-10 21:36] LABS: Bedside Glucose 118 mg/dL (70-110)
[2018-01-10 21:44] LABS: Absolute Lymphocyte Count 2.61 X10^3/ul (0.83-4.51); Absolute Neutrophil Count 9.1 X10^3/uL (2.0-7.7); Basophil# 0.01 X10^3/uL; Basophil% 0.1 % (0-1); Eosinophil# 0.04 X10^3/uL; Eosinophils% 0.3 % (0-5); Hematocrit 26.1 % (37-47); Hemoglobin 8.8 g/dl (12.0-15.0); Lymphocyte # 2.61 X10^3/ul (4.0); Lymphocyte % 21.7 % (19-41); Mean Corp Hgb Conc 33.7 g/gl (32-36); Mean Corpuscular Hgb 27.9 pg (27.0-32.0); Mean Corpuscular Volume 82.9 fL (81-99); Mean Platelet Vol. 12.4 fl (6.2-12.0); Monocyte# 0.19 X10^3/uL; Monocyte% 1.6 % (0-10); Neutrophil # 9.13 X10^3/uL (2.7-7.7); Neutrophil % 76.1 % (47-70); Platelet Count 204 K/mm3 (150-450); RBC Distribution Width CV 13.4 % (11.6-14.6); RBC Distribution Width SD 40.7 fl (35.1-43.9); Red Blood Count 3.15 M/mm3 (4.2-5.4)
[2018-01-10 21:45] LABS: POSITIVE COUNT NO; POSITIVE DIFFERENTIAL NO; POSITIVE MORPHOLOGY NO
[2018-01-10 21:59] LABS: Fibrinogen 480 mg/dl (203-444); Partial Thromboplast Time 29.2 Seconds (24.1-36.2); Prothrombin Time (Protime)PT. 13.1 SECONDS (11.7-14.9)
--- NOTE | 2018-01-10 22:11 | PN.OBGYN_ITS ---
Patient Problems: Active and Suspected Problems (Last Reviewed 01/07/18 @ 09:53 by Glo Restrepo) Pre-eclampsia superimposed on chronic hypertension (Acute) Subjective: Called to patient's room secondary to feeling a gush of blood and resultant tachycardia and pain and nausea. Patient passed a large 200 cc clot with an additional 100 cc of dark older blood seen and became tachycardic and hypertensive after this. - Physical Exam General: Alert Cardiovascular: Tachycardic Abdomen: Soft, Non-Distended, Tender Vital Signs Temp Pulse Resp BP Pulse Ox 98.9 F 90 18 140/69 H 100 01/10/18 20:00 01/10/18 20:00 01/10/18 20:00 01/10/18 20:00 01/10/18 20:00 Oxygen Delivery Method Room Air Weight: 263 lb 0.183 oz Body Mass Index (BMI) 38.8 Finger Stick Blood Glucose 156 Intake and Output for Last 24 Hours 01/08/18 01/09/18 01/10/18 23:59 23:59 23:59 Intake Total 400 / 400 3311 / 3311 Output Total 247 / 247 1220 / 1220 Balance 153 / 153 2091 / 2091 Laboratory Tests Past 24 Hrs 01/10/18 01/10/18 01/10/18 00:25 00:25 06:00 WBC RBC Hgb 10.3 L Hct MCV MCH MCHC RDW RDW Differential Plt Count MPV Immature Gran % (Auto) Neut % (Auto) Lymph % (Auto) Tyrrell % (Auto) Eos % (Auto) Baso % (Auto) Absolute Neuts (auto) Absolute Lymphs (auto) Total Counted PT 14.0 INR 1.1 APTT 27.1 Fibrinogen Sodium 138 Potassium 4.1 Chloride 106 Carbon Dioxide 23.0 Anion Gap 9 BUN 18 Creatinine 0.45 L Estim Creat Clear Calc 194.51 Est GFR (MDRD) Af Amer 212 Est GFR (MDRD) Non-Af 175 BUN/Creatinine Ratio 39.8 H Glucose 104 Calcium 7.4 L Total Bilirubin 0.20 AST 15 ALT 10 L Alkaline Phosphatase 98 Total Protein 5.7 L Albumin 2.0 L Globulin 3.7 Albumin/Globulin Ratio 0.5 L 01/10/18 01/10/18 01/10/18 06:00 21:29 21:29 WBC 22.1 H 12.0 H RBC 3.35 L 3.15 L Hgb 9.5 L 8.8 L Hct 27.7 L 26.1 L MCV 82.7 82.9 MCH 28.4 27.9 MCHC 34.3 33.7 RDW 12.8 13.4 RDW Differential 37.3 40.7 Plt Count 232 204 MPV 13.4 H 12.4 H Immature Gran % (Auto) 0.200 Neut % (Auto) 76.1 H Lymph % (Auto) 21.7 Tyrrell % (Auto) 1.6 Eos % (Auto) 0.3 Baso % (Auto) 0.1 Absolute Neuts (auto) 9.1 H Absolute Lymphs (auto) 2.61 Total Counted Not Reportable PT 13.1 INR 1.0 APTT 29.2 Fibrinogen 480 H Sodium Potassium Chloride Carbon Dioxide Anion Gap BUN Creatinine Estim Creat Clear Calc Est GFR (MDRD) Af Amer Est GFR (MDRD) Non-Af BUN/Creatinine Ratio Glucose Calcium Total Bilirubin AST ALT Alkaline Phosphatase Total Protein Albumin Globulin Albumin/Globulin Ratio POC Glucose 01/10/18 01/10/18 01/10/18 21:07 17:13 11:25 POC Glucose 118 H 113 H 136 H 01/10/18 01/09/18 01/09/18 08:06 22:31 20:23 POC Glucose 88 125 H 138 H Medical Necessity - Tobacco Use Smoking Status: Never smoker Assessment/Plan Active and Suspected Problems (Last Reviewed 01/07/18 @ 09:53 by Glo Restrepo) Pre-eclampsia superimposed on chronic hypertension (Acute) Delayed hemorrhage and anemia secondary to acute blood loss, stat hemoglobin 8.8 which is down less than a gram from earlier. Clot that passed appeared to be old with no acute red bleeding. Limited bedside ultrasound done and thin lining seen measuring less than 10 mm with no suspected retained products of conception. Vaginal exam revealed 200 cc clot with an additional 100 cc of blood that was old and dark that came out afterwards but no other additional clots and cervix dilated 2 cm. Patient given 1 mg of IV Dilaudid and bolus of Pitocin and a dose of Hemabate given. No active acute bleeding seen. After pain control heart rate decreased into the 110s. Normal oxygen saturation. Will type and cross 2 units but expectant management. Persistent hypertension over an hour after episode, patient given Procardia 30 mg XL. IV fluid bolus given.
[2018-01-11] VITALS: RESP 16; O2SAT 96
--- NOTE | 2018-01-11 00:05 | NURSING ---
See Hemorrhage Checklist in chart of interventions and medications ordered. Dr. Calderon called to room @ 210, in room @ 210PAtient feeling chills and muscles very rigid. Vital signs BP166/88 P 148 R 22 T 99.8 POx 96%. Oxygen non-rebreather applied @ 10 L. Ultrasound brought to room. Dr. Calderon massaging and cot expelled. Pads weighed and documented. Pitocin, hemabate and dilaudid given per VO from Dr. Calderon- see MAR for detailed times and dosing. Patient stable and Procardia given at [address] Calderon. Last VS stable - [facility] documentation and patient feeling much better resting. continuous pulse ox left on patient.
[2018-01-11 02:00] VITALS: BP 130/72; PULSE 96; RESP 16; TEMP 37.1; O2SAT 96
[2018-01-11] MEDS: Ketorolac 30 MG/ML Syringe IV ×3 (02:17→14:53)
[2018-01-11] MEDS: Cephalexin 500 MG Capsule PO ×2 (06:07→12:58)
[2018-01-11] MEDS: Enoxaparin 40 MG/0.4 ML Syringe SC (06:07)
[2018-01-11 07:24] VITALS: BP 131/62; PULSE 77; RESP 16; TEMP 36.6; O2SAT 97
[2018-01-11] MEDS: oxyCODONE 5 MG Tablet PO (07:28)
[2018-01-11] MEDS: Senna/Docusate Sodium 1 Tablet PO (07:28)
[2018-01-11 07:41] LABS: Bedside Glucose 96 mg/dL (70-110)
[2018-01-11] MEDS: 0.9% Saline Lock 10 ML Syringe IV (08:37)
[2018-01-11] MEDS: NIFEdipine 30 MG Tablet PO (09:00)
[2018-01-11 12:55] VITALS: BP 131/64; PULSE 88; RESP 16; TEMP 36.8
[2018-01-11] MEDS: Prenatal Vits Tablet 1 TABLET PO (13:01)
[2018-01-11 13:06] LABS: Bedside Glucose 89 mg/dL (70-110)
--- NOTE | 2018-01-11 16:03 | PCM.DCCSEC ---
Discharge Diet: No Restrictions Discharge Activity: May Not Drive - for 2 weeks, May not drive while taking narcotic pain medications., May Shower, May Take a Tub Bath - in 7 days May resume sexual activity in: 4-6 weeks Lifting Restrictions: 20 pounds Additional Activity Instructions:: Nothing in the vagina for 4-6 weeks. You may return to work/school in 6 weeks. Call your doctor if your incision/area has: Continuous Slow Oozing, Sudden Increased Bleeding, Increased Pain/ Swelling, Increased Redness, Foul Smelling Discharge Call your doctor if you observe: Fever of 101 or Higher, Using more than one pad per hour - for 2 hours Suture Line Care: Avoid Pulling/Pushing, Avoid Pinching/Bending Cleanse incision/area with: Keep Dressing Clean & Dry Additional Instructions: If you experience any of the following, contact your healthcare provider. Bleeding that soaks a pad every hour for 2 hours Fever 100.4 or higher Unrelieved incision or abdominal pain Swelling, redness, discharge or bleeding from your incision or episiotomy site Your incision begins to separate Problems urinating (including inability to urinate or burning while urinating). Visual changes Severe headache Flu-like symptoms Pain or redness in one of both of your breasts Pain, warmth, tenderness or swelling in your legs, especially the calf area Frequent nausea and vomiting Symptoms of depression or anxiety If you experience any of the following, call 911 or go to the nearest Emergency Room. Chest pain Problems breathing Seizure activity Partial or complete paralysis of a body part, slurred speech, weakness or drooping of the face, or a sudden inability to walk or hold your balance Allergies/Adverse Reactions: Allergies No Known Allergies Allergy (Verified 01/08/18 15:15) Medications to take at Discharge blood sugar diagnostic strips See Dose Instructions .ROUTE .MEDSUPPLY #20 ea 10/06/17 vitamin,calcium,uzkgjucg-ihwt-[id number] acid tablet 1 tab PO QDAY 10/06/17 Insulin NPH Human Isophane [Humulin N Vial] 34 units SQ BREAKFAST 11/15/17 Insulin NPH Human Isophane [Humulin N] 12 units SC [facility] 11/15/17 Insulin Regular, Human [Novolin R] 12 unit SQ LUNCH 11/15/17 Insulin Regular, Human [Novolin R] 16 unit SQ BREAKFAST 11/15/17 Insulin Regular, Human [Novolin R] 24 unit SC [facility] 11/15/17 Nifedipine [Procardia Xl] 60 mg PO DAILY 11/15/17 Cephalexin 500 mg PO TID 01/08/18 Nifedipine [Procardia Xl] 01/08/18 Vit Calc,Iron,Folic [ Vitamins] 1 tab PO DAILY 01/08/18 Ibuprofen [Motrin] 600 mg PO Q6H PRN PRN #30 tab 01/11/18 Metformin HCl 1,000 mg PO BID #60 tab 01/11/18 NIFEdipine [Procardia Xl] 60 mg PO DAILY #30 tab 01/11/18 Oxycodone HCl/Acetaminophen [Percocet 5-325] 2 tablet PO Q4H PRN PRN 7 Days #28 tablet 01/11/18 The following prescriptions were given: Oxycodone HCl/Acetaminophen [Percocet 5-325] 2 tablet PO Q4H PRN PRN 7 Days #28 tablet PRN Reason: Moderate-Severe pain Ibuprofen [Motrin] 600 mg PO Q6H PRN PRN #30 tab PRN Reason: Pain NIFEdipine [Procardia Xl] 60 mg PO DAILY #30 tab Metformin HCl 1,000 mg PO BID #60 tab Follow-Up: Call to make an appointment with your doctor for an incision check in 1-2 weeks. You will also need a 6 week post- follow up appointment. Please Follow Up With: Ainsley Calderon MD - Call to make an appointment for an incision check in 1-2 [phone] When: You will need a post- check in 6 weeks. Primary Care Physician: Care Physician,No Primary [Primary Care Provider] -
[2018-01-11 18:40] VITALS: BP 141/79; PULSE 88; RESP 16; TEMP 36.6
--- NOTE | 2018-01-11 23:17 | PCM.PN.OB ---
Subjective: doing better minimal bleeding pain controlled no ALDRICH BV - Physical Exam General: Alert, Oriented x3 Vital Signs Temp Pulse Resp BP Pulse Ox 97.9 F 88 16 141/79 H 97 01/11/18 18:40 01/11/18 18:40 01/11/18 18:40 01/11/18 18:40 01/11/18 07:24 Oxygen Delivery Method Room Air Weight: 263 lb 0.183 oz Body Mass Index (BMI) 38.8 Finger Stick Blood Glucose 156 Intake and Output for Last 24 Hours 01/09/18 01/10/18 01/11/18 23:59 23:59 23:59 Intake Total 400 / 400 3311 / 3311 331 / 331 Output Total 247 / 247 1220 / 1220 2700 / 2700 Balance 153 / 153 2091 / 2091 -2369 / -2369 POC Glucose 01/11/18 01/11/18 12:56 07:27 POC Glucose 89 96 Medical Necessity - Tobacco Use Smoking Status: Never smoker Assessment/Plan severe preeclampsia- bps well controlled on 30 mg procardia diabetes- controlled with metformin plan dc home today-
--- NOTE | 2018-01-11 23:18 | PCM.DC.SUM ---
Discharge Date and Diagnosis Date of Admission: 01/08/18 Date of Discharge: 01/11/18 - Primary Discharge Diagnosis s/p repeat cs and btl severe preeclampsia prematurity diabetes Hospital Course and Treatment Consultations 01/09/18 18:40 Consult: Anesthesia Routine Comment: Reason For Exam: LABOR Operations: - - csection and btl Summary of Care Provided: The patient is a 27 year old F presented with chtn and superimposed preeclampsia which became severe after 24 hours and since she was after 34 weeks it was recommended by M to proceed with delivery. patient underwent a repeat c section and btl. postoperatively she had delayed hemorrhage ane anemia secondary to blood loss but stabilized and did well after treatment with hemabate and pitocin. she was stbale for dc to home on ppd2. diabetes was managed with metformin postoperatively Discharge Diet: No Restrictions Discharge Activity: May Not Drive - for 2 weeks, May not drive while taking narcotic pain medications., May Shower, May Take a Tub Bath - in 7 days May resume sexual activity in: 4-6 weeks Additional Activity Instructions:: Nothing in the vagina for 4-6 weeks. You may return to work/school in 6 weeks. Call your doctor if your incision/area has: Continuous Slow Oozing, Sudden Increased Bleeding, Increased Pain/ Swelling, Increased Redness, Foul Smelling Discharge Call your doctor if you observe: Fever of 101 or Higher, Using more than one pad per hour - for 2 hours Suture Line Care: Avoid Pulling/Pushing, Avoid Pinching/Bending Cleanse incision/area with: Keep Dressing Clean & Dry Home Medications: Medications to take at Discharge blood sugar diagnostic strips See Dose Instructions .ROUTE .MEDSUPPLY #20 ea 10/06/17 vitamin,calcium,cqvijjwm-ycxs-tkbyo acid tablet 1 tab PO QDAY 10/06/17 Insulin NPH Human Isophane [Humulin N Vial] 34 units SQ BREAKFAST 11/15/17 Insulin NPH Human Isophane [Humulin N] 12 units SC [facility] 11/15/17 Insulin Regular, Human [Novolin R] 12 unit SQ LUNCH 11/15/17 Insulin Regular, Human [Novolin R] 16 unit SQ BREAKFAST 11/15/17 Insulin Regular, Human [Novolin R] 24 unit SC [facility] 11/15/17 Nifedipine [Procardia Xl] 60 mg PO DAILY 11/15/17 Cephalexin 500 mg PO TID 01/08/18 Nifedipine [Procardia Xl] 01/08/18 Vit Calc,Iron,Folic [ Vitamins] 1 tab PO DAILY 01/08/18 Ibuprofen [Motrin] 600 mg PO Q6H PRN PRN #30 tab 01/11/18 Metformin HCl 1,000 mg PO BID #60 tab 01/11/18 NIFEdipine [Procardia Xl] 60 mg PO DAILY #30 tab 01/11/18 Oxycodone HCl/Acetaminophen [Percocet 5-325] 2 tablet PO Q4H PRN PRN 7 Days #28 tablet 01/11/18 Following Prescrptions Were Given to Patient: Oxycodone HCl/Acetaminophen [Percocet 5-325] 2 tablet PO Q4H PRN PRN 7 Days #28 tablet PRN Reason: Moderate-Severe pain Ibuprofen [Motrin] 600 mg PO Q6H PRN PRN #30 tab PRN Reason: Pain NIFEdipine [Procardia Xl] 60 mg PO DAILY #30 tab Metformin HCl 1,000 mg PO BID #60 tab Primary Care Physician: Care Physician,No Primary [Primary Care Provider] - Please Follow Up With: Ainsley Calderon MD - Call to make an appointment for an incision check in 1-2 [phone] When: You will need a post- check in 6 weeks. Medical Necessity - Tobacco Use Smoking Status: Never smoker Meaningful Use Info Meaningful Use Diagnoses (Choose all that apply): None applicable
[2018-01-12 09:22] LABS: Pathology Specimen OB SEE PATHOLOGY REPORT
== END 2018-01-11 18:50 | disposition home or self-care (01) | DRG 370 ==
LOC: WPOUT 18:39 → WP 20:01
PROVIDERS: Admitting Provider Obstetrics & Gynecology; Visit Provider Obstetrics & Gynecology
DX: O34.211 Maternal care for low transverse scar from previous cesarean delivery (principal); O24.12 Pre-existing type 2 diabetes mellitus, in childbirth; O72.2 Delayed and secondary postpartum hemorrhage; O40.3XX0 Polyhydramnios, third trimester, not applicable or unspecified; D62 Acute posthemorrhagic anemia; O99.02 Anemia complicating childbirth; E11.9 Type 2 diabetes mellitus without complications; D25.2 Subserosal leiomyoma of uterus; N85.8 Other specified noninflammatory disorders of uterus; O14.14 Severe pre-eclampsia complicating childbirth; O34.13 Maternal care for benign tumor of corpus uteri, third trimester; Z3A.34 34 weeks gestation of pregnancy; Z37.0 Single live birth; Z79.4 Long term (current) use of insulin; Z87.440 Personal history of urinary (tract) infections; Z30.2 Encounter for sterilization; O10.919 Unspecified pre-existing hypertension complicating pregnancy, unspecified trimester
CPT/HCPCS: 36415; 59025; 59050; 80053; 82565; 82570; 82962; 83615; 84156; 84450; 84460; 84550; 85018; 85025; 85027; 85384; 85610; 85730; 86592; 86703; 86762; 86850; 86900; 87653; 88302; 94762; 96372; 99218; J7120; A4216; G0378

== ENCOUNTER 2018-05-22 02:40 | Emergency (ER) | payer SELFPAY ==
[2018-05-22 02:42] VITALS: BP 143/81; PULSE 87; RESP 18; TEMP 36.7; O2SAT 100; BMI 35.8
--- NOTE | 2018-05-22 03:22 | ED.VISSUMM ---
- ER Visit Summary Date of Service: 05/22/18 Chief Complaint: Slipped and fell down steps History of Present Illness: The patient is a 27 F with a history of diet-controlled diabetes. Patient states she was walking down steps tonight in her house slipped and injured her left upper back. Denies hitting her head. No LOC. No neck pain. States it hurts to move. Denies any chest or abdominal pain or injury. Physical Examination: Well-appearing young female. Vital signs are stable and afebrile. Pulse ox 100% on room air no signs of hypoxia. She does appear to be in some pain. H EENT exam unremarkable atraumatic. Pupils round reactive light. Extra motions are intact. No scalp tenderness or hematomas. No facial trauma. C-spine nontender. Full range of motion her neck. No lymphadenopathy. Trachea midline nontender. Lungs clear to auscultation bilaterally. Heart regular rhythm no murmur. Rate about 90. Anterior chest wall nontender. Abdomen soft nontender. Normal bowel sounds no peritoneal signs. Pelvic girdle intact. She is moving all 4 extremities. They are neurovascularly intact. Nontender no deformity. Specifically the left shoulder is completely nontender. No deformity. No dislocation. Bilateral infectious disease physician strength. Back exam the thoracic and lumbar spine are nontender. She is tenderness on the left upper posterior rib cage and upper back. There is no ecchymosis or bruising. No subcu air or crepitance. No gross bony deformities. Neurologic exam she is awake alert with no focal motor deficits. GCS of 15. Test Results: Two-view chest x-ray was obtained no acute rib fractures nor any pneumothorax. Cardiac silhouette was unremarkable. She does have an incidental finding of a left upper lobe lung mass that is rounded. This is of uncertain etiology. I discussed this and showed the x-ray to the patient. She states that 8-9 years ago at another hospital she was told she had this. Never had any further evaluation of it or CAT scan. She is a non-smoker. She denies any hemoptysis. She denied discussed that she needed further imaging and evaluation of this. She is agreeable once a done as an outpatient. She will be referred to Dr. Bonifacio Becker as a new primary care physician or their office and can have further outpatient workup of this abnormal left-sided chest x-ray finding. Emergency Department Course and Treatment: Patient treated with 2 p.o. [place] Treatment Plan: Patient doing well at 04 55 and will be discharged to home with outpatient follow-up Disposition: Discharge Impression: Slipped and fell down steps Fall with left upper back and rib cage contusion Left upper lobe lung mass seen on chest x-ray of uncertain etiology (patient wants outpatient follow-up) This note was generated with [employer] dictation software. It may contain incorrect words, spelling, and punctuation that were not noted in review of the chart prior to signing ED Disposition - Plan for ED Patient: Chief Complaint: Fall Referrals: Care Physician,No Primary [Primary Care Provider] -
--- NOTE | 2018-05-22 03:35 | RAD_ITS ---
STUDY: X-RAY CHEST REASON FOR EXAM: Female, 27 years old. Left shoulder and left upper rib pain. Fall down steps. TECHNIQUE: PA and lateral chest. COMPARISON: February 17, 2014. FINDINGS: There is now a 3.4 x 2.9 cm mass lateral aspect of the left upper lobe. No effusions. No pneumothorax. Normal size heart. Normal mediastinum and blane. Normal visualized pulmonary arteries. Normal visualized aortic arch and descending thoracic aorta. No fracture identified. Mild anterior wedging of several mid thoracic vertebral bodies unchanged. There is no demonstrated abnormality of the visualized soft tissue structures of the upper abdomen. RAD/Chest PA and Lateral IMPRESSION: 3.4 cm left upper lobe mass worrisome for malignancy. Recommend correlation with CT chest. No rib fractures identified. Electronically Signed: Leodan Padron MD at 4:45 EDT , Service support ,
[2018-05-22] MEDS: HYDROcodone Bitartrate/Apap 5/325 Tablet PO (04:34)
--- NOTE | 2018-05-22 05:02 | ED.DEP ---
ED Disposition - Plan for ED Patient: Disposition: Home or Assisted Living Chief Complaint: Fall Instructions: ED Contusion Rib Referrals: Ran Becker MD [STAFF PHYSICIAN] - As soon as possible Additional Instructions: Call and follow-up with Dr. Guerrero Becker for further evaluation of this left lung mass that will need a CAT scan.
== END 2018-05-22 05:13 | disposition home or self-care (01) ==
PROVIDERS: Emergency Provider Emergency Medicine
DX: S20.222A Contusion of left back wall of thorax, initial encounter (principal); S20.212A Contusion of left front wall of thorax, initial encounter; R91.8 Other nonspecific abnormal finding of lung field; W10.9XXA Fall (on) (from) unspecified stairs and steps, initial encounter; Y93.9 Activity, unspecified; Y92.009 Unspecified place in unspecified non-institutional (private) residence as the place of occurrence of the external cause; E11.9 Type 2 diabetes mellitus without complications; Z86.79 Personal history of other diseases of the circulatory system
CPT/HCPCS: 71046; 99283

== ENCOUNTER 2018-09-20 20:35 | Emergency (ER) | payer MEDICAID, SELFPAY ==
[2018-09-20 20:36] VITALS: BP 154/90; PULSE 84; RESP 14; TEMP 36.9; O2SAT 100; BMI 34.0
[2018-09-20 20:49] VITALS: O2SAT 100
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
--- NOTE | 2018-09-20 22:04 | ED.DEP ---
ED Disposition - Plan for ED Patient: Disposition: Home or Assisted Living Chief Complaint: Fall Instructions: ED Contusion Sacrum Coccyx Referrals: Gera Cisneros MD [STAFF PHYSICIAN] - As soon as possible Additional Instructions: Ice to your tailbone. Tylenol and Motrin for pain. Air donut or sit on a pillow.
--- OUTSIDE RECORDS SUMMARY | 2018-11-16 10:21 | XMS RPT_ITS ---
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 Races . >60 PAST MEDICAL HISTORY Diagnosis Date - Dysthymic disorder Depression (non-psychotic) - Urinary calculus, unspecified 1995 Renal stones ALLERGIES Patient has no known allergies. MEDICATIONS Current Outpatient Prescriptions: meclizine (ANTIVERT) 12.5 mg tab Take 1 tablet by mouth three times daily as needed (dizziness). ondansetron orally disintegrating (ZOFRAN ODT) 4 mg disintegrating tablet Take 1 tablet by mouth every 6 hours as needed for Nausea/Vomiting. NO122/IRON/FOLIC ACID ( MULTI ORAL) Take 2 tablets by mouth once daily. No current facility-administered medications for this visit. Medications and allergies reviewed by this provider. 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 Social History Main Topics Smoking status: Never Smoker Smokeless tobacco: Never Used Alcohol use: Yes Comment: OCCASIONALLY BUT NOT WHILE Drug use: No Sexual activity: Yes Partners with: Male control/protection: Condom REVIEW OF SYSTEMS GENERAL: No weight loss, malaise or fevers HEENT: No changes in hearing or vision, no nose bleeds or other nasal problems NECK: Negative for lumps, goiter, pain and significant neck swelling RESPIRATORY: Negative for cough, hemoptysis, wheezing, COPD, dyspnea or shortness of breath CARDIOVASCULAR: Negative for chest pain, leg swelling, hypertension, CHF or palpitations GI: No nausea, vomiting, or diarrhea and No heartburn or reflux symptoms MUSCULOSKELETAL: Negative for joint pain or swelling, back pain or muscle pain SKIN: Negative for lesions, rash, and itching PSYCH: Negative for sleep disturbance, mood disorder and recent psychosocial stressors HEMATOLOGY/LYMPHOLOGY: Negative for prolonged bleeding, bruising easily or swollen nodes ENDOCRINE: Negative for cold or heat intolerance, polyuria, polydipsia and goiter NEURO: No history of headaches, syncope, paralysis, seizures or tremors All other reviewed and negative other than HPI. OBJECTIVE: BP 132/62 (BP Site: Left Arm, BP Position: Sitting, BP Cuff Size: Large Adult) Pulse 68 Resp 16 Wt 105.3 kg (232 lb 1.9 oz) LMP 05/16/2017 BMI 34.53 kg/m? . Vital signs reviewed by this provider. PHYSICAL EXAMINATION: General appearance: Well appearing, alert, in no acute distress, well-hydrated, well nourished. Skin: Skin color, texture, turgor normal, no suspicious rashes or lesions Head: Normocephalic, no masses, lesions, tenderness or abnormalities Eyes: Anicteric sclera. Pupils are equally round and reactive to light. Extraocular movements are intact. Neck: Supple, no adenopathy; thyroid symmetric, normal size, no bruits Lungs: Lungs clear to auscultation. No wheezing, rhonchi, rales Heart: RRR without murmur, gallop, or rubs. No ectopy Extremities: No deformities, edema, skin discoloration, clubbing or cyanosis. Good capillary refill. Neuro: Gait normal. Reflexes normal and symmetric. Sensation grossly intact. ASSESSMENT/PLAN: 1. Generalized headaches - ICD9: 784.0, ICD10: R51 (primary diagnosis) - tension vs migraines - no red flag exam findings - red flag symptoms discussed, patient verbalizes understanding - did not bring headache diary- however is saying more in afternoon and when stressed out. - lean more toward tension - d/t frequency will start propanolol 80 mg dairy patient education from [employer] on medication and discussed common side effects- is to report if develops - may continue to use tylenol if needed - consider CT if no improvment - follow-up in 1 month, sooner if needed, to ER with red flag symptoms 2. Dizziness - ICD9: 780.4, ICD10: R42 - possibly related to hemoglobin still low - no red flag exam findings - red flag symptoms discussed, patient verbalizes understanding - per report improving- recent BMP did not reveal any electrolyte abnormalities - continue iron - may use anitvert 12.5 mg every 8 hours as needed - CBC in 1 month - TSH BLD - follow-up in 1 month, sooner if needed, to ER with red flag symtpoms 3. induced hypertension, antepartum - ICD9: 642.33, ICD10: O13.9 - stop procardia d/t starting propanolol - monitor blood pressures and report results in 2 weeks - follow-up in 1 month 4. Gestational diabetes mellitus (GDM), antepartum, gestational diabetes method of control unspecified - ICD9: 648.83, ICD10: O24.419 - may stop metformin - monitor blood sugars fasting and 2 hour after lunch or dinner- report reading in 2 weeks HGB A1C in 3 months - follow-up in 1 month Sandra Keller APRN.[facility] Prescription instructions reviewed with patient as applicable. Patient advised if symptoms do not improve or if symptoms worsen sooner, to contact their primary care physician. Potential red flag symptoms discussed with the patient. Reviewed appropriate action plan to take if red flag symptoms occur. Patient agreeable to treatment plan. CNOV Observed: 02/28/2018 Status: COMPLETED Source: [place] 1:40 PM [facility] REPOSITORY Office Visit (FAMPWS) RADHA CASTRO ([id number]) 1990 F Date Time Provider Department 02/28/18 1:40 PM SANDRA KELLER ([facility]) FAMPWS During your visit today, we recorded the following information about you: Pulse Respiration Blood pressure Weight 68/minute 16/minute 132/62 105.3 kg Sandra Keller ([facility]) 03/01/2018 7:10 AM Signed 02/28/2018 Patient presents with: Recheck SUBJECTIVE: This is a 27 year old that is here today for Above Complaints. 1. Dizziness: Still feeling dizzy 1-2 times a day. Report getting better. About 1-2 episodes a day lasting a couple minutes and go away after sitting down. No aggravating features. Described as room as spinning. Taking meclizine 12.5 mg 2-3 times a day. Denies fever, chills, body aches, visual changes, tinnitus, syncope, presyncope, lightheadedness, nausea, vomiting, eyes jumping, SOB, dyspnea, chest pain, palpitations, extremity weakness, tingling, numbness. Is eating more regularly and taking in more water as suggested at last visit. Is continuing to take iron. 2. Headaches: Still having headaches about 5 times a week. Described as throbbing ans usually across forehead sometimes localizes to either protestant. Denies auras, nausea, vomiting, visual disturbances, thunderclap in nature, slurred speech, phonophobia, osmophobia and hx of previous headaches. Positive for photophobia. Headaches tend to come in th afternoon and when she is stressed out. Taking tylenol and usually gets full relief. 3. Gestational diabetes: Would like to stop metformin. Has been taking blood sugars in the morning and usually less than 90. No problems with blood sugars prior to . Delivered baby on 01-09-2018. Periods have returned as of Wednesday. Patient had tubes tied after delivery. Is not . 4. Gestational hypertension: Has been taking blood pressure as home and most less than 130/80. Is wondering if she can stop procardia. Was placed on this at 28 weeks of . Component Latest Ref Rng AND Units 02/08/2018 WBC 3.70 - 11.00 k/uL 6.85 RBC 3.90 - 5.20 m/uL 3.75 (L) Hemoglobin 11.5 - 15.5 g/dL 9.6 (L) Hematocrit 36.0 - 46.0 % 31.0 (L) MCV 80.0 - 100.0 fL 82.7 MCH 26.0 - 34.0 pG 25.6 (L) MCHC 30.5 - 36.0 g/dL 31.0 RDW-CV 11.5 - 15.0 % 13.1 Platelet Count 150 - 400 k/uL 351 MPV 9.0 - 12.7 fL 12.3 Absolute nRBC <0.01 k/uL <0.01 Glucose 74 - 99 mg/dL 133 (H) BUN 7 - 21 mg/dL 14 Creatinine 0.58 - 0.96 mg/dL 0.50 (L) Sodium 136 - 144 mmol/L 139 Potassium 3.7 - 5.1 mmol/L 4.6 Chloride 97 - 105 mmol/L 99 CO2 22 - 30 mmol/L 25 Anion Gap 9 - 18 mmol/L 15 Calcium 8.5 - 10.2 mg/dL 8.8 eGFR- >60 eGFR-All Other Races . >60 PAST MEDICAL HISTORY Diagnosis Date - Dysthymic disorder Depression (non-psychotic) - Urinary calculus, unspecified 1995 Renal stones ALLERGIES Patient has no known allergies. MEDICATIONS Current Outpatient Prescriptions: meclizine (ANTIVERT) 12.5 mg tab Take 1 tablet by mouth three times daily as needed (dizziness). ondansetron orally disintegrating (ZOFRAN ODT) 4 mg disintegrating tablet Take 1 tablet by mouth every 6 hours as needed for Nausea/Vomiting. NO122/IRON/FOLIC ACID ( MULTI ORAL) Take 2 tablets by mouth once daily. No current facility-administered medications for this visit. Medications and allergies reviewed by this provider. 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 Social History Main Topics Smoking status: Never Smoker Smokeless tobacco: Never Used Alcohol use: Yes Comment: OCCASIONALLY BUT NOT WHILE Drug use: No Sexual activity: Yes Partners with: Male control/protection: Condom REVIEW OF SYSTEMS GENERAL: No weight loss, malaise or fevers HEENT: No changes in hearing or vision, no nose bleeds or other nasal problems NECK: Negative for lumps, goiter, pain and significant neck swelling RESPIRATORY: Negative for cough, hemoptysis, wheezing, COPD, dyspnea or shortness of breath CARDIOVASCULAR: Negative for chest pain, leg swelling, hypertension, CHF or palpitations GI: No nausea, vomiting, or diarrhea and No heartburn or reflux symptoms MUSCULOSKELETAL: Negative for joint pain or swelling, back pain or muscle pain SKIN: Negative for lesions, rash, and itching PSYCH: Negative for sleep disturbance, mood disorder and recent psychosocial stressors HEMATOLOGY/LYMPHOLOGY: Negative for prolonged bleeding, bruising easily or swollen nodes ENDOCRINE: Negative for cold or heat intolerance, polyuria, polydipsia and goiter NEURO: No history of headaches, syncope, paralysis, seizures or tremors All other reviewed and negative other than HPI. OBJECTIVE: BP 132/62 (BP Site: Left Arm, BP Position: Sitting, BP Cuff Size: Large Adult) Pulse 68 Resp 16 Wt 105.3 kg (232 lb 1.9 oz) LMP 05/16/2017 BMI 34.53 kg/m? . Vital signs reviewed by this provider. PHYSICAL EXAMINATION: General appearance: Well appearing, alert, in no acute distress, well-hydrated, well nourished. Skin: Skin color, texture, turgor normal, no suspicious rashes or lesions Head: Normocephalic, no masses, lesions, tenderness or abnormalities Eyes: Anicteric sclera. Pupils are equally round and reactive to light. Extraocular movements are intact. Neck: Supple, no adenopathy; thyroid symmetric, normal size, no bruits Lungs: Lungs clear to auscultation. No wheezing, rhonchi, rales Heart: RRR without murmur, gallop, or rubs. No ectopy Extremities: No deformities, edema, skin discoloration, clubbing or cyanosis. Good capillary refill. Neuro: Gait normal. Reflexes normal and symmetric. Sensation grossly intact. ASSESSMENT/PLAN: 1. Generalized headaches - ICD9: 784.0, ICD10: R51 (primary diagnosis) - tension vs migraines - no red flag exam findings - red flag symptoms discussed, patient verbalizes understanding - did not bring headache diary- however is saying more in afternoon and when stressed out. - lean more toward tension - d/t frequency will start propanolol 80 mg dairy patient education from [employer] on medication and discussed common side effects- is to report if develops - may continue to use tylenol if needed - consider CT if no improvment - follow-up in 1 month, sooner if needed, to ER with red flag symptoms 2. Dizziness - ICD9: 780.4, ICD10: R42 - possibly related to hemoglobin still low - no red flag exam findings - red flag symptoms discussed, patient verbalizes understanding - per report improving- recent BMP did not reveal any electrolyte abnormalities - continue iron - may use anitvert 12.5 mg every 8 hours as needed - CBC in 1 month - TSH BLD - follow-up in 1 month, sooner if needed, to ER with red flag symtpoms 3. induced hypertension, antepartum - ICD9: 642.33, ICD10: O13.9 - stop procardia d/t starting propanolol - monitor blood pressures and report results in 2 weeks - follow-up in 1 month 4. Gestational diabetes mellitus (GDM), antepartum, gestational diabetes method of control unspecified - ICD9: 648.83, ICD10: O24.419 - may stop metformin - monitor blood sugars fasting and 2 hour after lunch or dinner- report reading in 2 weeks HGB A1C in 3 months - follow-up in 1 month Sandra Keller APRN.[facility] Prescription instructions reviewed with patient as applicable. Patient advised if symptoms do not improve or if symptoms worsen sooner, to contact their primary care physician. Potential red flag symptoms discussed with the patient. Reviewed appropriate action plan to take if red flag symptoms occur. Patient agreeable to treatment plan. Sandra Keller ([facility]) 02/28/2018 2:31 PM Addendum Check blood sugars fasting daily and 2 hour after lunch or dinner- record- call on 2 weeks with readings Check blood pressure daily - record - call in 2 weeks with readings- Referring Provider: SELF [200] Allergies As of Date: 02/28/2018 (No Known Allergies) Date Reviewed: 02/28/2018 Reviewed by: Ibis Tenorio LPN - Fully Assessed Reason for Visit: Recheck [92] Primary Visit Diagnosis:Generalized headaches [R51] Other Visit Diagnoses:Dizziness [R42] induced hypertension, antepartum [O13.9] Gestational diabetes mellitus (GDM), antepartum, gestational diabetes method of control unspecified [O24.419] Order(s):CBC [SQCBC] Order #: [id number] FUTURE meclizine (ANTIVERT) 12.5 mg tabTake 1 tablet by mouth three times daily as needed (dizziness).Disp: 30 tabletRfl: 3 HGB A1C [GENLV4O] Order #: [id number] FUTURE propranolol (INDERAL) 80 mg tabletTake 1 tablet by mouth once daily.Disp: 30 tabletRfl: 0 TSH BLD [SQTSH] Order #: [id number] FUTURE Prescriptions as of 02/28/2018 Sig: MECLIZINE 12.5 MG TABLET Take 1 tablet by mouth three * ONDANSETRON 4 MG DISINTEGRATI* Take 1 tablet by mouth every * MULTI ORAL Take 2 tablets by mouth once * PROPRANOLOL 80 MG TABLET Take 1 tablet by mouth once d* Problem List As Of Date 02/28/2018 Noted Resolved Diabetes mellitus, antepartum [O24.919] INVALID FOR* SUPRF HIGH RISK NEC [V23.89] [O09.899]INVALID FOR*02/21/2013 Hypertension in , preeclampsia, antepa*INVALID FOR*02/21/2013 Hypertension [I10] INVALID FOR* Other instructions from your clinician: Check blood sugars fasting daily and 2 hour after lunch or dinner- record- call on 2 weeks with readings Check blood pressure daily - record - call in 2 weeks with readings- Prescriptions ordered this encounter Disp Refills Start End MECLIZINE 12.5 MG TABLET 30 t* 3 02/28/2018 Route: ORAL Sig: Take 1 tablet by mouth three times daily as needed (dizziness). PROPRANOLOL 80 MG TABLET 30 t* 0 02/28/2018 Route: ORAL Sig: Take 1 tablet by mouth once daily. Medications Discontinued During This Encounter clotrimazole-betamethasone cream 30 g 0 10/23/2013 02/28/2018 Route: TOPICAL Sig: Apply 1 application to affected area twice daily. Disc: Course of therapy completed cephALEXin 500 mg capsule 14 c* 0 12/04/2013 02/28/2018 Route: ORAL Sig: Take 1 capsule by mouth twice daily. FOR 7 DAYS. Disc: Course of therapy completed terconazole 0.4 % vaginal cream 40 g 0 12/04/2013 02/28/2018 Route: VAGINAL Sig: Use 1 Applicator vaginally daily at bedtime. Disc: Course of therapy completed albuterol HFA (VENTOLIN HFA) 90 mcg/* 1 In* 0 08/16/2017 02/28/2018 Route: INHALATION Sig: Inhale 2 Puffs as instructed every 4 hours as needed for Wheezing/Shortness of Breath. Disc: Course of therapy completed levonorgestrel (MIRENA) 20 mcg/24 ho* 02/28/2018 Class: Historical Med Route: INTRAUTERINE Si Each by INTRAUTERINE route one time only. Disc: Course of therapy completed NIFEDIPINE (PROCARDIA ORAL) 02/28/2018 Class: Historical Med Route: ORAL Sig: Take by mouth. Disc: Course of therapy completed metFORMIN (GLUCOPHAGE) 1,000 mg tabl* 02/28/2018 Class: Historical Med Route: ORAL Sig: Take 1,000 mg by mouth twice daily with meals. Disc: Course of therapy completed meclizine (ANTIVERT) 12.5 mg tab 28 t* 0 02/08/2018 02/28/2018 Route: ORAL Sig: Take 1 tablet by mouth three times daily as needed (dizziness). Disc: Reason for discontinue is not on file. Follow-up and Disposition History Recorded Encounter Status:Closed by SANDRA KELLER CNP on 03/01/18 [employer] [employer] [facility] OFFICE VISIT Observed: 02/24/2018 Status: F Source: [facility] REPORT 12:46 PM [facility] REPOSITORY [facility] [address] [place], [place] [address]woo. 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: No Is patient in pain?: No Allergies No Known Allergies Allergy (Verified 02/24/18 11:30) Medications vitamin,calcium,djmxtgqq-xobn-fbzhc acid tablet 1 tab PO QDAY 10/06/17 [History Confirmed 02/24/18] Nifedipine [Procardia Xl] 60 mg PO DAILY 11/15/17 [History Confirmed 02/24/18] Metformin HCl 1,000 mg PO BID #60 tab 01/11/18 [Rx Confirmed 02/24/18] sertraline 25 mg tablet 25 mg PO QDAY #30 tab 02/24/18 [Rx Confirmed 02/24/18] Last Menstral Period: 02/22/18 : No [facility] Medical History Diabetes (Acute) Preeclampsia (Acute) Hypertension (Chronic) Surgical History delivery delivered (Acute) Family History Grandmother Diabetes Hypertension Breast cancer Cancer Lung Grandfather Diabetes Father Diabetes Social History Smoking Status: Never smoker alcohol intake: never substance use type: does not use what type of physical activity do you participate in: none seatbelt use: always do you feel safe at home: Yes additional social history: Spouse Yuval Pregancy History 2 Elective abortions Hx Para 1 Spontaneous abortions Past Pregnancies Del. DateName GA/Weeks Outcome Route Bth WeighInfant GeLabor LgtAnesthesiDel LocatProvider FOB t n h a n Delivery Date: 01/09/18 On 01/12/18 @ 11:28 Glo Restrepo HTN with SI preeclampsia severe DM RptCS with BTL delivered at 34 weeks and 2 days Delivery Date: No notes to display Depression Screen PHQ-2/9 PHQ-2 Over the last 2 weeks, how often have you been bothered by any of the following problems? 1. Little interest or pleasure in doing things: more than half the days 2. Feeling down, depressed, or hopeless: more than half the days Total score: 4 If score is 2 or greater, continue Source: Developed by Drs. Gary Henning, Lashawn Chan, Everardo Murdock and colleagues, with an educational abran from [employer]. Scoring: Total Score Depression Severity Action 1-4 Minimal depression No action needed 5-9 Mild depression Repeat PHQ-9 at follow up 10-14 Moderate depression Make tx plan,consider counseling, fup, prescription Post HPI 6 WEEK POST : Details: RADHA CASTRO is a 27 year old who presents for her post visit. Feeling more down. Was on zoloft after last child. Would like to restart before symptoms worsen. Son was born at 34 weeks, in [place] almost 1 month. Home now and doing well. Infant Feeding: Bottle Menses resumed: No [place] since delivery: Yes Emotional Support: Yes (sometimes. No close family) Last Pap:: 2017 ROS Card Denies chest pain, Denies shortness of breath Resp Denies shortness of breath GI Denies change in bowel habits, Denies bloating Denies difficulty urinating Skin/Breast Denies breast lump, Denies breast pain, Denies breast skin changes Exam Const General: cooperative, no acute distress, well developed Nutritional Appearance: average body habitus Orientation: oriented x3 Chest Chest palpation AND inspection: abnormal inspection of the chest Breast inspection: normal inspection of the breasts Breast palpation: normal palpation of the breasts, normal palpation of the axillae, no axillary lymphadenopathy GI Palpation: soft, nontender, no masses General: bladder normal to palpation External Female Exam: normal external appearance, normal appearance of the urethra Urethra: normal appearance of the urethra Speculum Exam - Vagina: normal appearance of the vagina, normal vaginal discharge Speculum Exam - Cervix: normal appearance of the cervix Bimanual Exam- Vagina AND Uterus: bladder normal to palpation, normal bimanual exam, uterine size normal, uterine shape normal, uterine mobility normal, uterus non-tender Bimanual Exam- Adnexa, other: normal adnexae, no adnexal masses, adnexae non-tender, pelvic support normal Pelvic Support: normal Assessment AND Plan Problems 1. Routine follow-up Z39.2 2. History of gestational diabetes Z86.32 3. History of pre-eclampsia Z87.59 Plan .Discussed use, benefits, risks and side effects of zoloft. Currently still on metformin and procardia. Will consult with Dr. Peters to see if can dc these medications and call patient next week Medications New: Discontinued: Coding Level of Care Code Care Only Diagnoses Routine follow-up Z39.2 History of gestational diabetes Z86.32 History of pre-eclampsia Z87.59 02/24/18 1246 <Electronically signed by Patricia ECHEVERRIAC> Date Patricia ECHEVERRIAC Cosigner Signature: Date (if applicable) CC: CBC Collected: 02/08/2018 Status: F Source: [place] 11:08 AM [facility] TYPE CODE TESTS RESULT OUT OF REFERENCE UNITS RANGE LAB WBC 3.70-11.00 k/uL WBC 6.85 LAB RBC 3.90-5.20 m/uL Low RBC 3.75 LAB HGB 11.5-15.5 g/dL Low Hemoglobin 9.6 LAB HCT 36.0-46.0 % Low Hematocrit 31.0 LAB MCV 80.0-100.0 fL MCV 82.7 LAB MCH 26.0-34.0 pG Low MCH 25.6 LAB MCHC 30.5-36.0 g/dL MCHC 31.0 LAB RDWCV 11.5-15.0 % RDW-CV 13.1 LAB PLTCT 150-400 k/uL Platelet Count 351 LAB MPV 9.0-12.7 fL MPV 12.3 LAB ABSNUC <0.01 k/uL Absolute nRBC <0.01 Performed By: #### CBC, BMP #### [facility] [address] [place], [place] [address] BASIC METABOLIC PANL Collected: 02/08/2018 Status: F Source: [place] 11:08 AM [facility] REPOSITORY TYPE CODE TESTS RESULT OUT OF REFERENCE UNITS RANGE LAB GLU 74-99 mg/dL High Glucose 133 Result Comment: The [place] [employer] (ADA) provides guidance for cutoff values for fasting glucose and random glucose. The ADA defines fasting as no caloric intake for at least 8 hours. Fas ting plasma glucose results between 100 to 125 mg/dL indicate increased risk for diabetes (prediabetes). Fasting plasma glucose results greater than or equal to 126 mg/dL meet the criteria for diagnosis of diabetes. In the absence of unequivocal hyperglycemia, results should be confirmed by repeat testing. In a patient with classic symptoms of hyperglycemia or hyperglycemic crisis, random plasma glucose results greater than or equal to 200 mg/dL meet the criteria for diagnosis of diabetes. Reference: Standards of Medical Care in Diabetes 2016, [place] [employer]. Diabetes Care. 2016.39(Suppl 1). LAB BUN 7-21 mg/dL BUN 14 LAB CRET 0.58-0.96 mg/dL Creatinine Low 0.50 LAB NA 136-144 mmol/L Sodium 139 LAB K 3.7-5.1 mmol/L Potassium 4.6 LAB CL 97-105 mmol/L Chloride 99 LAB CO2 22-30 mmol/L CO2 25 LAB AGAP 9-18 mmol/L Anion Gap 15 LAB CA 8.5-10.2 mg/dL Calcium, Total 8.8 LAB GFRAA eGFR- Amer. >60 LAB GFRNAA . eGFR-All Other Races >60 Result Comment: eGFR (Estimated GFR) Units of measure: mL/min/1.73 meters squared eGFR is derived from the reexpressed MDRD Study equation using the following parameters: serum creatinine, age, gender and race. The creatinine assay has been calibrated to be traceable to IDMS. An eGFR <60 mL/min/1.73m2 for >3 months is consistent with chronic kidney disease. Refer to KDOQI guidelines for clinical interpretation. In patients with unstable renal function, e.g. those with acute kidney injury, the eGFR may not accurately reflect actual GFR. Performed By: #### CBC, BMP #### [facility] [address] [place] [id number] PROGRESS Observed: 02/08/2018 Status: COMPLETED Source: [place] 10:18 AM [facility] REPOSITORY HNO ID: [id number] Author: Sandra Reynoso) Podlogar Service: (none) Author Type: Nurse Practitioner Type: Progress Notes Filed: 02/08/2018 4:19 PM Note Text: CC: Dizziness, headache, and nausea since having baby HPI/CC: Radha Castro is a 27 year old female who presents with concern of above. Symptoms started the day after having her baby on January 09. She says she had hemorraging after delivery. She was not transfused. Dizziness is described as room is spinning. Associated with nausea and head movement. Denies symptoms sitting to standing. It is intermittent throughout the day and is relieved with rest. Denies fever, chill, body aches, syncope,presyncope, lightheadedness, vomiting, eyes jumping, chest pain, palpitations, Sob, abdominal pain, diarrhea, swollen painful joints, urinary difficulties. visual changes, extremity numbness, tingling,or weakness.Positive for intermittent tinnitus in the lleft ear, intemittent nausea, constipation, and left ear fullness She does not when she bends forward she feels a little off balance. She did take some iron for a coupe of weeks because she thought she was iron deficient but it didn't help so she stopped. Drinks a lot of water. Admits to not eating regularly as she has been spending alot of time at hospital since son was born early and he has been in NICU since. Brought him home yesterday. Also since of son has been getting headaches daily. Described as throbbing and usually to left protestant and front of head. Positive for nausea with these. Denies auras, visual disturbances, thunderclap in nature, slurred speech, photophobia, phonophobia, and osmophobia, extremity weakness, numbness and tingling or hx of previous headaches. Uses tylenol with full relief. Is able to continue daily routine with headache. REVIEW OF SYSTEMS GENERAL: No weight loss, malaise or fevers HEENT: No changes in hearing or vision, no nose bleeds or other nasal problems NEURO: No history syncope, paralysis, seizures or tremors Reviewed PMHx, PSHx, social Hx, medications and allergies. PHYSICAL EXAMINATION: BP 120/74 (BP Site: Left Arm, BP Position: Sitting, BP Cuff Size: Large Adult) Pulse 68 Resp 18 Wt 105.7 kg (233 lb 0.6 oz) LMP 05/16/2017 BMI 34.66 kg/m2 General appearance: Well appearing, alert, in no acute distress, well-hydrated, well nourished. Head: Normocephalic, no masses, lesions, tenderness or abnormalities Eyes: Anicteric sclera. Pupils are equally round and reactive to light. Extraocular movements are intact. No nystagmus Ears: External ears normal, canals clear, External ears normal, canals clear, TM's normal Nose/Sinuses: Nares normal, septum midline, mucosa normal, no drainage or sinus tenderness Oropharynx: Lips, mucosa, and tongue normal, teeth and gums normal, oropharynx normal Neck: Supple, no adenopathy; thyroid symmetric, normal size, no bruits Lungs: Lungs clear to auscultation. No wheezing, rhonchi, rales Heart:: S1 and S2 normal, RRR without murmur, gallop, or rubs. No ectopy Extremities: No deformities, edema, skin discoloration, clubbing or cyanosis. Good capillary refill. Musculoskeletal: No joint swelling, deformity, or tenderness, Negative findings: ROM of all joints is normal, Strength normal Peripheral pulses: Normal Abdomen: soft, nondistended, nontender, no hepatosplenomegaly or masses Neuro: Awake, alert and oriented x 3, Cranial nerves II-XII grossly intact, Reflexes symmetrical, Normal gait, No involuntary motions. and negative findings: speech normal, mental status intact, cranial nerves 2-12 intact, gait, including heel, toe, and tandem walking normal, Romberg negative, muscle tone normal, muscle strength normal, rapid alternating movements normal, finger to nose normal, sensation to light touch and pinprick normal, reflexes normal and symmetric, plantar response downgoing bilaterally Jen HallPike Maneuver Results: Negative ASSESSMENT/PLAN: 1. Dizziness - ICD9: 780.4, ICD10: R42 (primary diagnosis) - possibly related to anemia, possibly related to eating habits, electrolyte abnormality, viral URI - no red flag exam findings - red flag symptoms discussed, verbalizes understanig - CBC on shows H/H of 8.8./26.1 with MCV of 82.9 - meclizine 12.5 mg three times a day as needed - CBC - BASIC METABOLIC PNL - follow-up in 2 weeks, to ER with red flag symtpoms 2. Nausea - ICD9: 787.02, ICD10: R11.0 - possibly related to dizziness and/or headaches - no red flag exam findings - red flag symptoms discussed , verbalizes understanding - zofran 4 mg ODT every 6 hours as needed - follow-up as above 3. Headache, unspecified headache type - ICD9: 784.0, ICD10: R51- - consider tension vs migraine - no red flag symptoms - red flag symptoms, discussed, verbalizes understanding - headache diary provided to track over the next couple of weeks - follow-up in 2 weeks, bring headache diary, to ER with red flag symptoms Sandra Keller, THELMA.PRODUCTION OPERATIONS MANAGER Prescription instructions reviewed with patient as applicable. Patient advised if symptoms do not improve or if symptoms worsen sooner, to contact their primary care physician. Potential red flag symptoms discussed with the patient. Reviewed appropriate action plan to take if red flag symptoms occur. Patient agreeable to treatment plan. CARYN Observed: 02/08/2018 Status: COMPLETED Source: [place] 10:00 AM [facility] REPOSITORY [facility] RADHA CASTRO ([id number]) 1990 F Date Time Provider Department 02/08/18 10:00 AM SANDRA KELLER (BIJAN) SACHA During your visit today, we recorded the following information about you: Pulse Respiration Blood pressure Weight 68/minute 18/minute 120/74 105.7 kg Ibis Christopher Tenorio LPN 02/08/2018 10:14 AM Signed Pt states had a baby on January 09 since then dizziness and nausea and headaches. States multiple times a day. Did f/up with ob. Sandra Keller APRN.BIJAN 02/08/2018 4:19 PM Addendum CC: Dizziness, headache, and nausea since having baby HPI/CC: Radha Castro is a 27 year old female who presents with concern of above. Symptoms started the day after having her baby on January 09. She says she had ANDquot;hemorragingANDquot; after delivery. She was not transfused. Dizziness is described as ANDquot;room is spinning.ANDquot; Associated with nausea and head movement. Denies symptoms sitting to standing. It is intermittent throughout the day and is relieved with rest. Denies fever, chill, body aches, syncope,presyncope, lightheadedness, vomiting, eyes jumping, chest pain, palpitations, Sob, abdominal pain, diarrhea, swollen painful joints, urinary difficulties. visual changes, extremity numbness, tingling,or weakness.Positive for intermittent tinnitus in the lleft ear, intemittent nausea, constipation, and left ear fullness She does not when she bends forward she feels ANDquot;a little off balance.ANDquot; She did take some iron for a coupe of weeks because she thought she was iron deficient but it didn't help so she stopped. Drinks a lot of water. Admits to not eating regularly as she has been spending alot of time at hospital since son was born early and he has been in NICU since. Brought him home yesterday. Also since of son has been getting headaches daily. Described as throbbing and usually to left protestant and front of head. Positive for nausea with these. Denies auras, visual disturbances, thunderclap in nature, slurred speech, photophobia, phonophobia, and osmophobia, extremity weakness, numbness and tingling or hx of previous headaches. Uses tylenol with full relief. Is able to continue daily routine with headache. REVIEW OF SYSTEMS GENERAL: No weight loss, malaise or fevers HEENT: No changes in hearing or vision, no nose bleeds or other nasal problems NEURO: No history syncope, paralysis, seizures or tremors Reviewed PMHx, PSHx, social Hx, medications and allergies. PHYSICAL EXAMINATION: BP 120/74 (BP Site: Left Arm, BP Position: Sitting, BP Cuff Size: Large Adult) Pulse 68 Resp 18 Wt 105.7 kg (233 lb 0.6 oz) LMP 05/16/2017 BMI 34.66 kg/m2 General appearance: Well appearing, alert, in no acute distress, well-hydrated, well nourished. Head: Normocephalic, no masses, lesions, tenderness or abnormalities Eyes: Anicteric sclera. Pupils are equally round and reactive to light. Extraocular movements are intact. No nystagmus Ears: External ears normal, canals clear, External ears normal, canals clear, TM's normal Nose/Sinuses: Nares normal, septum midline, mucosa normal, no drainage or sinus tenderness Oropharynx: Lips, mucosa, and tongue normal, teeth and gums normal, oropharynx normal Neck: Supple, no adenopathy; thyroid symmetric, normal size, no bruits Lungs: Lungs clear to auscultation. No wheezing, rhonchi, rales Heart:: S1 and S2 normal, RRR without murmur, gallop, or rubs. No ectopy Extremities: No deformities, edema, skin discoloration, clubbing or cyanosis. Good capillary refill. Musculoskeletal: No joint swelling, deformity, or tenderness, Negative findings: ROM of all joints is normal, Strength normal Peripheral pulses: Normal Abdomen: soft, nondistended, nontender, no hepatosplenomegaly or masses Neuro: Awake, alert and oriented x 3, Cranial nerves II-XII grossly intact, Reflexes symmetrical, Normal gait, No involuntary motions. and negative findings: speech normal, mental status intact, cranial nerves 2-12 intact, gait, including heel, toe, and tandem walking normal, Romberg negative, muscle tone normal, muscle strength normal, rapid alternating movements normal, finger to nose normal, sensation to light touch and pinprick normal, reflexes normal and symmetric, plantar response downgoing bilaterally Jen HallPike Maneuver Results: Negative ASSESSMENT/PLAN: 1. Dizziness - ICD9: 780.4, ICD10: R42 (primary diagnosis) - possibly related to anemia, possibly related to eating habits, electrolyte abnormality, viral URI - no red flag exam findings - red flag symptoms discussed, verbalizes understanig - CBC on shows H/H of 8.8./26.1 with MCV of 82.9 - meclizine 12.5 mg three times a day as needed - CBC - BASIC METABOLIC PNL - follow-up in 2 weeks, to ER with red flag symtpoms 2. Nausea - ICD9: 787.02, ICD10: R11.0 - possibly related to dizziness and/or headaches - no red flag exam findings - red flag symptoms discussed , verbalizes understanding - zofran 4 mg ODT every 6 hours as needed - follow-up as above 3. Headache, unspecified headache type - ICD9: 784.0, ICD10: R51- - consider tension vs migraine - no red flag symptoms - red flag symptoms, discussed, verbalizes understanding - headache diary provided to track over the next couple of weeks - follow-up in 2 weeks, bring headache diary, to ER with red flag symptoms Sandra Keller APRN.PRODUCTION OPERATIONS MANAGER Prescription instructions reviewed with patient as applicable. Patient advised if symptoms do not improve or if symptoms worsen sooner, to contact their primary care physician. Potential red flag symptoms discussed with the patient. Reviewed appropriate action plan to take if red flag symptoms occur. Patient agreeable to treatment plan. Sandra Keller APRN.CNP 02/08/2018 10:54 AM Signed If you pass out, have chest pain, shortness of breath, feel weakness, numbness and tingling in extremties or worst headache of your go to ER Referring Provider: NELL GARCÍA [[id number]] Allergies As of Date: 02/08/2018 (No Known Allergies) Date Reviewed: 02/08/2018 Reviewed by: Ibis Tenorio LPN - Fully Assessed Reason for Visit: Recheck [92] Cmt: from urgent care for dizziness Primary Visit Diagnosis:Dizziness [R42] Other Visit Diagnoses:Nausea [R11.0] Headache, unspecified headache type [R51] Order(s):CBC [SQCBC] Order #: [id number] FUTURE BASIC METABOLIC PNL [SQBMP] Order #: [id number] FUTURE meclizine (ANTIVERT) 12.5 mg tabTake 1 tablet by mouth three times daily as needed (dizziness).Disp: 28 tabletRfl: 0 ondansetron orally disintegrating (ZOFRAN ODT) 4 mg disintegrating tabletTake 1 tablet by mouth every 6 hours as needed for Nausea/Vomiting.Disp: 10 tabletRfl: 0 Prescriptions as of 02/08/2018 Sig: PROCARDIA ORAL Take by mouth. MULTI ORAL Take 2 tablets by mouth once * METFORMIN 1,000 MG TABLET Take 1,000 mg by mouth twice * ALBUTEROL SULFATE HFA 90 MCG/* Inhale 2 Puffs as instructed * LEVONORGESTREL 20 MCG/24 HR (* 1 Each by INTRAUTERINE route * TERCONAZOLE 0.4 % VAGINAL CRE* Use 1 Applicator vaginally da* CEPHALEXIN 500 MG CAPSULE Take 1 capsule by mouth twice* CLOTRIMAZOLE-BETAMETHASONE 1 * Apply 1 application to affect* MECLIZINE 12.5 MG TABLET Take 1 tablet by mouth three * ONDANSETRON 4 MG DISINTEGRATI* Take 1 tablet by mouth every * Problem List As Of Date 02/08/2018 Noted Resolved Diabetes mellitus, antepartum [O24.919] INVALID FOR* SUPRF HIGH RISK NEC [V23.89] [O09.899]INVALID FOR*02/21/2013 Hypertension in , preeclampsia, antepa*INVALID FOR*02/21/2013 Hypertension [I10] INVALID FOR* Other instructions from your clinician: If you pass out, have chest pain, shortness of breath, feel weakness, numbness and tingling in extremties or worst headache of your go to ER Visit Notes: >> Ibis Palm Feb 08, 2018 10:09 AM Status: Signed Pt states had a baby on January 09 since then dizziness and nausea and headaches. States multiple times a day. Did f/up with ob. Prescriptions ordered this encounter Disp Refills Start End MECLIZINE 12.5 MG TABLET 28 t* 0 02/08/2018 Route: ORAL Sig: Take 1 tablet by mouth three times daily as needed (dizziness). ONDANSETRON 4 MG DISINTEGRATING TABL* 10 t* 0 02/08/2018 Route: ORAL Sig: Take 1 tablet by mouth every 6 hours as needed for Nausea/Vomiting. Follow-up and Disposition History Recorded Encounter Status:Closed by PODLOGSANDRA GAMBOA CNP on 02/08/18 PROGRESS Observed: 02/04/2018 Status: COMPLETED Source: [place] 5:44 PM [facility] REPOSITORY HNO ID: [id number] Author: Nell García Service: (none) Author Type: Nurse Practitioner Type: Progress Notes Filed: 02/04/2018 5:55 PM Note Text: Subjective HPI Pt presents with c/o fatigue and intermittent headaches, dizziness/vertigo x 2 weeks. Recently gave to baby. States sx began shortly after delivery. Was evaluated by ANCHOR TACK PULLER at f/u and was referred to PCP for further evaluation of sx. Denies CP, dyspnea, heart palpitations, fever, chills, URI sx. . Review of Systems Constitutional: Negative for chills and fever. HENT: Negative for congestion and sore throat. Respiratory: Negative for cough. Neurological: Positive for dizziness and headaches. Negative for tingling, tremors, sensory change, speech change, focal weakness and seizures. Objective Physical Exam Constitutional: She is oriented to person, place, and time and well-developed, well-nourished, and in no distress. No distress. HENT: Head: Normocephalic. Right Ear: Hearing, tympanic membrane, external ear and ear canal normal. Left Ear: Hearing, tympanic membrane, external ear and ear canal normal. Nose: Nose normal. Mouth/Throat: Uvula is midline, oropharynx is clear and moist and mucous membranes are normal. No oropharyngeal exudate. Eyes: Conjunctivae are normal. Pupils are equal, round, and reactive to light. Cardiovascular: Normal rate, regular rhythm and normal heart sounds. Exam reveals no gallop and no friction rub. No murmur heard. Pulmonary/Chest: Effort normal and breath sounds normal. No respiratory distress. She has no wheezes. She has no rales. Neurological: She is alert and oriented to person, place, and time. GCS score is 15. Skin: Skin is warm and dry. She is not diaphoretic. BP 116/72 Pulse 116 Temp 37.7 ?C (99.9 ?F) (Tympanic) Resp 12 Wt 105.2 kg (232 lb) LMP 05/16/2017 BMI 34.51 kg/m2 .Patient presents with: Ear Pain: Left with dizziness and nausea X 2 weeks PAST MEDICAL HISTORY Diagnosis Date - Dysthymic disorder Depression (non-psychotic) - Urinary calculus, unspecified 1996 Renal stones PAST SURGICAL HISTORY Procedure Laterality Date - DELIVERY ONLY ALLERGIES Review of patient's allergies indicates no known allergies. MEDICATIONS NIFEDIPINE (PROCARDIA ORAL) Take by mouth. NO122/IRON/FOLIC ACID ( MULTI ORAL) Take 2 tablets by mouth once daily. metFORMIN (GLUCOPHAGE) 1,000 mg tablet Take 1,000 mg by mouth twice daily with meals. albuterol HFA (VENTOLIN HFA) 90 mcg/actuation inhaler Inhale 2 Puffs as instructed every 4 hours as needed for Wheezing/Shortness of Breath. levonorgestrel (MIRENA) 20 mcg/24 hour (5 years) IUD 1 Each by INTRAUTERINE route one time only. terconazole 0.4 % vaginal cream Use 1 Applicator vaginally daily at bedtime. cephALEXin 500 mg capsule Take 1 capsule by mouth twice daily. FOR 7 DAYS. clotrimazole-betamethasone cream Apply 1 application to affected area twice daily. FAMILY HISTORY Problem Relation Age of Onset - Alcohol/Drug Paternal Uncle - Arthritis Mother - Arthritis Maternal Grandmother - Breast Cancer Maternal Grandmother - Diabetes Maternal Grandmother - Diabetes Paternal Grandfather - Heart Maternal Grandmother - Hypertension Father - Seizures Maternal Grandmother Social History Substance Use Topics - Smoking status: Never Smoker - Smokeless tobacco: Never Used - Alcohol use Yes Comment: OCCASIONALLY BUT NOT WHILE ASSESSMENT/PLAN: 1. Dizziness - ICD9: 780.4, ICD10: R42 (primary diagnosis) - REFER TO FAMILY MEDICINE 2. Fatigue, unspecified type - ICD9: 780.79, ICD10: R53.83 3. Headache, unspecified headache type - ICD9: 784.0, ICD10: R51 The patient is instructed to return or seek emergency treatment if symptoms become worse or with any acute change in condition. The patient verbalizes understanding and is in agreement with plan of care. Nell García CNP CNOV Observed: 02/04/2018 Status: COMPLETED Source: [place] 5:00 PM [facility] REPOSITORY Office Visit ([facility]) GLORIARADHA ([id number]) 1990 F Date Time Provider Department 02/04/18 5:00 PM NELL GARCÍA [facility] During your visit today, we recorded the following information about you: Temperature Pulse Respiration Blood pressure 99.9 degrees 116/minute 12/minute 116/72 Weight 105.2 kg Nell García APRN.PRODUCTION OPERATIONS MANAGER 02/04/2018 5:55 PM Signed Subjective HPI Pt presents with c/o fatigue and intermittent headaches, dizziness/vertigo x 2 weeks. Recently gave to baby. States sx began shortly after delivery. Was evaluated by ANCHOR TACK PULLER at f/u and was referred to PCP for further evaluation of sx. Denies CP, dyspnea, heart palpitations, fever, chills, URI sx. . Review of Systems Constitutional: Negative for chills and fever. HENT: Negative for congestion and sore throat. Respiratory: Negative for cough. Neurological: Positive for dizziness and headaches. Negative for tingling, tremors, sensory change, speech change, focal weakness and seizures. Objective Physical Exam Constitutional: She is oriented to person, place, and time and well-developed, well-nourished, and in no distress. No distress. HENT: Head: Normocephalic. Right Ear: Hearing, tympanic membrane, external ear and ear canal normal. Left Ear: Hearing, tympanic membrane, external ear and ear canal normal. Nose: Nose normal. Mouth/Throat: Uvula is midline, oropharynx is clear and moist and mucous membranes are normal. No oropharyngeal exudate. Eyes: Conjunctivae are normal. Pupils are equal, round, and reactive to light. Cardiovascular: Normal rate, regular rhythm and normal heart sounds. Exam reveals no gallop and no friction rub. No murmur heard. Pulmonary/Chest: Effort normal and breath sounds normal. No respiratory distress. She has no wheezes. She has no rales. Neurological: She is alert and oriented to person, place, and time. GCS score is 15. Skin: Skin is warm and dry. She is not diaphoretic. BP 116/72 Pulse 116 Temp 37.7 ?C (99.9 ?F) (Tympanic) Resp 12 Wt 105.2 kg (232 lb) LMP 05/16/2017 BMI 34.51 kg/m2 .Patient presents with: Ear Pain: Left with dizziness and nausea X 2 weeks PAST MEDICAL HISTORY Diagnosis Date - Dysthymic disorder Depression (non-psychotic) - Urinary calculus, unspecified 1995 Renal stones PAST SURGICAL HISTORY Procedure Laterality Date - DELIVERY ONLY ALLERGIES Review of patient's allergies indicates no known allergies. MEDICATIONS NIFEDIPINE (PROCARDIA ORAL) Take by mouth. NO122/IRON/FOLIC ACID ( MULTI ORAL) Take 2 tablets by mouth once daily. metFORMIN (GLUCOPHAGE) 1,000 mg tablet Take 1,000 mg by mouth twice daily with meals. albuterol HFA (VENTOLIN HFA) 90 mcg/actuation inhaler Inhale 2 Puffs as instructed every 4 hours as needed for Wheezing/Shortness of Breath. levonorgestrel (MIRENA) 20 mcg/24 hour (5 years) IUD 1 Each by INTRAUTERINE route one time only. terconazole 0.4 % vaginal cream Use 1 Applicator vaginally daily at bedtime. cephALEXin 500 mg capsule Take 1 capsule by mouth twice daily. FOR 7 DAYS. clotrimazole-betamethasone cream Apply 1 application to affected area twice daily. FAMILY HISTORY Problem Relation Age of Onset - Alcohol/Drug Paternal Uncle - Arthritis Mother - Arthritis Maternal Grandmother - Breast Cancer Maternal Grandmother - Diabetes Maternal Grandmother - Diabetes Paternal Grandfather - Heart Maternal Grandmother - Hypertension Father - Seizures Maternal Grandmother Social History Substance Use Topics - Smoking status: Never Smoker - Smokeless tobacco: Never Used - Alcohol use Yes Comment: OCCASIONALLY BUT NOT WHILE ASSESSMENT/PLAN: 1. Dizziness - ICD9: 780.4, ICD10: R42 (primary diagnosis) - REFER TO FAMILY MEDICINE 2. Fatigue, unspecified type - ICD9: 780.79, ICD10: R53.83 3. Headache, unspecified headache type - ICD9: 784.0, ICD10: R51 The patient is instructed to return or seek emergency treatment if symptoms become worse or with any acute change in condition. The patient verbalizes understanding and is in agreement with plan of care. Nell García CNP Referring Provider: SELF [[id number]] Allergies As of Date: 02/04/2018 (No Known Allergies) Date Reviewed: 02/04/2018 Reviewed by: Aidee Ding LPN - Fully Assessed Reason for Visit: Ear Pain [817] Cmt: Left with dizziness and nausea X 2 weeks Primary Visit Diagnosis:Dizziness [R42] Other Visit Diagnoses:Fatigue, unspecified type [R53.83] Headache, unspecified headache type [R51] Order(s):REFER TO FAMILY MEDICINE [[id number]] Order #: [id number]: 1 Prescriptions as of 02/04/2018 Sig: PROCARDIA ORAL Take by mouth. MULTI ORAL Take 2 tablets by mouth once * METFORMIN 1,000 MG TABLET Take 1,000 mg by mouth twice * ALBUTEROL SULFATE HFA 90 MCG/* Inhale 2 Puffs as instructed * LEVONORGESTREL 20 MCG/24 HR (* 1 Each by INTRAUTERINE route * TERCONAZOLE 0.4 % VAGINAL CRE* Use 1 Applicator vaginally da* CEPHALEXIN 500 MG CAPSULE Take 1 capsule by mouth twice* CLOTRIMAZOLE-BETAMETHASONE 1 * Apply 1 application to affect* Problem List As Of Date 02/04/2018 Noted Resolved Diabetes mellitus, antepartum [O24.919] INVALID FOR* SUPRF HIGH RISK NEC [V23.89] [O09.899]INVALID FOR*02/21/2013 Hypertension in , preeclampsia, antepa*INVALID FOR*02/21/2013 Hypertension [I10] INVALID FOR* Encounter Status:Closed by NELL GARCÍA CNP on 02/04/18 ANCHOR TACK PULLER OFFICE VISIT Observed: 01/17/2018 Status: F Source: [facility] REPORT 1:08 PM [facility] REPOSITORY [facility] [address] [place] [address] [address] [place] [address] OFFICE VISIT Date of Service: 01/17/18 MR#: [id number] Acct: [id number] Name: RADHA CASTRO Rep #: [id number] : 1990 Provider: Ainsley Peters MD Age/Sex: 27/F [place] [facility] [place] Signed Intake Vital Signs01/17/18 Height 5 ft 9 in 01/17/18 Weight: 229 lb 01/17/18 Body Mass Index (BMI) 33.7 01/17/18 Blood Pressure 130/80 Intake Visit Reasons: c/s 1 week f/u Is patient in pain?: No Allergies No Known Allergies Allergy (Verified 01/17/18 11:20) Medications blood sugar diagnostic strips See Dose Instructions .ROUTE .MEDSUPPLY #20 ea 10/06/17 [History Confirmed 01/17/18] vitamin,calcium,dywakvbq-unnv-wrvri acid tablet 1 tab PO QDAY 10/06/17 [History Confirmed 01/17/18] Insulin NPH Human Isophane [Humulin N Vial] 34 units SQ BREAKFAST 11/15/17 [History Confirmed 01/17/18] Insulin NPH Human Isophane [Humulin N] 12 units SC PCHS 11/15/17 [History Confirmed 01/17/18] Insulin Regular, Human [Novolin R] 12 unit SQ LUNCH 11/15/17 [History Confirmed 01/17/18] Insulin Regular, Human [Novolin R] 16 unit SQ BREAKFAST 11/15/17 [History Confirmed 01/17/18] Insulin Regular, Human [Novolin R] 24 unit SC DINNER 11/15/17 [History Confirmed 01/17/18] Nifedipine [Procardia Xl] 60 mg PO DAILY 11/15/17 [History Confirmed 01/17/18] Cephalexin 500 mg PO TID 01/08/18 [History Confirmed 01/17/18] Nifedipine [Procardia Xl] 01/08/18 [History Confirmed 01/17/18] Vit Calc,Iron,Folic [ Vitamins] 1 tab PO DAILY 01/08/18 [History Confirmed 01/17/18] Ibuprofen [Motrin] 600 mg PO Q6H PRN PRN #30 tab 01/11/18 [Rx Confirmed 01/17/18] Metformin HCl 1,000 mg PO BID #60 tab 01/11/18 [Rx Confirmed 01/17/18] NIFEdipine [Procardia Xl] 60 mg PO DAILY #30 tab 01/11/18 [Rx Confirmed 01/17/18] Oxycodone HCl/Acetaminophen [Percocet 5-325] 2 tab PO Q4H PRN PRN 7 Days #28 tab 01/11/18 [Rx Confirmed 01/17/18] : No PFSH Medical History Diabetes (Acute) Preeclampsia (Acute) Hypertension (Chronic) Surgical History delivery delivered (Acute) Family History Grandmother Diabetes Hypertension Breast cancer Cancer Lung Grandfather Diabetes Father Diabetes Social History Smoking Status: Never smoker alcohol intake: never substance use type: does not use what type of physical activity do you participate in: none seatbelt use: always do you feel safe at home: Yes additional social history: Spouse Yuval Pregancy History 2 Elective abortions Hx Para 1 Spontaneous abortions Past Pregnancies Del. DateName GA/Weeks Outcome Route Bth WeighInfant GeLabor LgtAnesthesiDel LocatProvider FOB t n h a n Delivery Date: 01/09/18 On 01/12/18 @ 11:28 Glo Restrepo HTN with SI preeclampsia severe DM RptCS with BTL delivered at 34 weeks and 2 days Delivery Date: No notes to display Depression Screen PHQ-2/9 If score is 2 or greater, continue Source: Developed by Drs. Gary Henning, Lashawn Chan, Everardo Murdock and colleagues, with an educational abran from [employer]. Scoring: Total Score Depression Severity Action 1-4 Minimal depression No action needed 5-9 Mild depression Repeat PHQ-9 at follow up 10-14 Moderate depression Make tx plan,consider counseling, fup, prescription Post HPI c/s 1 week f/u: Details: RADHA CASTRO is a 27 year old who presents for her post visit. she is having some dizziness, but has normal bps and normal bs on the metformin and 30 mg of procardia ROS GI Reports system reviewed and no additional complaints, except as docu, Denies bloating, Denies nausea, Denies vomiting, Denies constipation Skin/Breast Reports system reviewed and no additional complaints, except as docu, Reports as per HPI Exam Const General: cooperative, healthy appearing, comfortable, no acute distress GI Inspection: normal to inspection Palpation: soft, no hepatosplenomegaly, nontender Other: Incision: C/D/I Assessment AND Plan Problems 1. care following delivery Z39.2 Plan fu with pcp and fu in 4 weeks for 6 week pp visit Coding Level of Care Code Global Post Op Diagnoses care following delivery Z39.2 01/17/18 1308 <Electronically signed by Ainsley Peters MD> Date Ainsley Peters MD Cosigner Signature: Date (if applicable) CC: DISCHARGE SUMMARY Observed: 01/11/2018 Status: F Source: [place] 11:21 PM [facility] REPOSITORY [facility] Medical Records Department [address] [place] [address] Discharge Summary 01/11/18 2318 MR#: [id number] Acct: [id number] Name: RADHA CASTRO Rep #: [id number] : 1990 27 From: Ainsley Peters MD PCP: Care Physician, No Primary Status: DIS IN Y Location: [place] [address] Discharge Date and Diagnosis Date of Admission: 01/08/18 Date of Discharge: 01/11/18 - Primary Discharge Diagnosis s/p repeat cs and btl severe preeclampsia prematurity diabetes Hospital Course and Treatment Consultations 01/09/18 18:40 Consult: Anesthesia Routine Comment: Reason For Exam: LABOR Operations: - - csection and btl Summary of Care Provided: The patient is a 27 year old F presented with chtn and superimposed preeclampsia which became severe after 24 hours and since she was after 34 weeks it was recommended by [facility] to proceed with delivery. patient underwent a repeat c section and btl. postoperatively she had delayed hemorrhage ane anemia secondary to blood loss but stabilized and did well after treatment with hemabate and pitocin. she was stbale for dc to home on ppd2. diabetes was managed with metformin postoperatively Discharge Diet: No Restrictions Discharge Activity: May Not Drive - for 2 weeks, May not drive while taking narcotic pain medications., May Shower, May Take a Tub Bath - in 7 days May resume sexual activity in: 4-6 weeks Additional Activity Instructions:: Nothing in the vagina for 4-6 weeks. You may return to work/school in 6 weeks. Call your doctor if your incision/area has: Continuous Slow Oozing, Sudden Increased Bleeding, Increased Pain/ Swelling, Increased Redness, Foul Smelling Discharge Call your doctor if you observe: Fever of 101 or Higher, Using more than one pad per hour - for 2 hours Suture Line Care: Avoid Pulling/Pushing, Avoid Pinching/Bending Cleanse incision/area with: Keep Dressing Clean AND Dry Home Medications: Medications to take at Discharge blood sugar diagnostic strips See Dose Instructions .ROUTE .MEDSUPPLY #20 ea 10/06/17 vitamin,calcium,micopvvh-toio-jckpu acid tablet 1 tab PO QDAY 10/06/17 Insulin NPH Human Isophane [Humulin N Vial] 34 units SQ BREAKFAST 11/15/17 Insulin NPH Human Isophane [Humulin N] 12 units SC PCHS 11/15/17 Insulin Regular, Human [Novolin R] 12 unit SQ LUNCH 11/15/17 Insulin Regular, Human [Novolin R] 16 unit SQ BREAKFAST 11/15/17 Insulin Regular, Human [Novolin R] 24 unit SC DINNER 11/15/17 Nifedipine [Procardia Xl] 60 mg PO DAILY 11/15/17 Cephalexin 500 mg PO TID 01/08/18 Nifedipine [Procardia Xl] 01/08/18 Vit Calc,Iron,Folic [ Vitamins] 1 tab PO DAILY 01/08/18 Ibuprofen [Motrin] 600 mg PO Q6H PRN PRN #30 tab 01/11/18 Metformin HCl 1,000 mg PO BID #60 tab 01/11/18 NIFEdipine [Procardia Xl] 60 mg PO DAILY #30 tab 01/11/18 Oxycodone HCl/Acetaminophen [Percocet 5-325] 2 tablet PO Q4H PRN PRN 7 Days #28 tablet 01/11/18 Following Prescrptions Were Given to Patient: Oxycodone HCl/Acetaminophen [Percocet 5-325] 2 tablet PO Q4H PRN PRN 7 Days #28 tablet PRN Reason: Moderate-Severe pain Ibuprofen [Motrin] 600 mg PO Q6H PRN PRN #30 tab PRN Reason: Pain NIFEdipine [Procardia Xl] 60 mg PO DAILY #30 tab Metformin HCl 1,000 mg PO BID #60 tab Primary Care Physician: Care Physician,No Primary [Primary Care Provider] - Please Follow Up With: Ainsley Peters MD - Call to make an appointment for an incision check in 1-2 [phone] When: You will need a post- check in 6 weeks. Medical Necessity - Tobacco Use Smoking Status: Never smoker Meaningful Use Info Meaningful Use Diagnoses (Choose all that apply): None applicable 01/11/182320 <Electronically signed by Ainsley Peters MD> Date Ainsley Peters MD Cosigner Signature (if applicable): Date CC: No Primary Care Physician; Ainsley Peters MD Signed DISCHARGE INSTRUCTION Observed: 01/11/2018 Status: F Source: [place] 4:04 PM [facility] REPOSITORY [facility] Medical Records Department [address] [place] [address] Instructions for Home/Discharge Instructions 01/11/18 1603 MR#: [id number] Acct: [id number] Name: RADHA CASTRO Rep #: [id number] : 1990 27 From: Ainsley Peters MD PCP: Care Physician, No Primary Status: ADM IN Discharge Diet: No Restrictions Discharge Activity: May Not Drive - for 2 weeks, May not drive while taking narcotic pain medications., May Shower, May Take a Tub Bath - in 7 days May resume sexual activity in: 4-6 weeks Lifting Restrictions: 20 pounds Additional Activity Instructions:: Nothing in the vagina for 4-6 weeks. You may return to work/school in 6 weeks. Call your doctor if your incision/area has: Continuous Slow Oozing, Sudden Increased Bleeding, Increased Pain/ Swelling, Increased Redness, Foul Smelling Discharge Call your doctor if you observe: Fever of 101 or Higher, Using more than one pad per hour - for 2 hours Suture Line Care: Avoid Pulling/Pushing, Avoid Pinching/Bending Cleanse incision/area with: Keep Dressing Clean AND Dry Additional Instructions: If you experience any of the following, contact your healthcare provider. * Bleeding that soaks a pad every hour for 2 hours * Fever 100.4 or higher * Unrelieved incision or abdominal pain * Swelling, redness, discharge or bleeding from your incision or episiotomy site * Your incision begins to separate * Problems urinating (including inability to urinate or burning while urinating). * Visual changes * Severe headache * Flu-like symptoms * Pain or redness in one of both of your breasts * Pain, warmth, tenderness or swelling in your legs, especially the calf area * Frequent nausea and vomiting * Symptoms of depression or anxiety If you experience any of the following, call 911 or go to the nearest Emergency Room. * Chest pain * Problems breathing * Seizure activity * Partial or complete paralysis of a body part, slurred speech, weakness or drooping of the face, or a sudden inability to walk or hold your balance Allergies/Adverse Reactions: Allergies No Known Allergies Allergy (Verified 01/08/18 15:15) Medications to take at Discharge blood sugar diagnostic strips See Dose Instructions .ROUTE .MEDSUPPLY #20 ea 10/06/17 vitamin,calcium,uuilurem-qclj-ofmnu acid tablet 1 tab PO QDAY 10/06/17 Insulin NPH Human Isophane [Humulin N Vial] 34 units SQ BREAKFAST 11/15/17 Insulin NPH Human Isophane [Humulin N] 12 units SC [facility] 11/15/17 Insulin Regular, Human [Novolin R] 12 unit SQ LUNCH 11/15/17 Insulin Regular, Human [Novolin R] 16 unit SQ BREAKFAST 11/15/17 Insulin Regular, Human [Novolin R] 24 unit SC DINNER 11/15/17 Nifedipine [Procardia Xl] 60 mg PO DAILY 11/15/17 Cephalexin 500 mg PO TID 01/08/18 Nifedipine [Procardia Xl] 01/08/18 Vit Calc,Iron,Folic [ Vitamins] 1 tab PO DAILY 01/08/18 Ibuprofen [Motrin] 600 mg PO Q6H PRN PRN #30 tab 01/11/18 Metformin HCl 1,000 mg PO BID #60 tab 01/11/18 NIFEdipine [Procardia Xl] 60 mg PO DAILY #30 tab 01/11/18 Oxycodone HCl/Acetaminophen [Percocet 5-325] 2 tablet PO Q4H PRN PRN 7 Days #28 tablet 01/11/18 The following prescriptions were given: Oxycodone HCl/Acetaminophen [Percocet 5-325] 2 tablet PO Q4H PRN PRN 7 Days #28 tablet PRN Reason: Moderate-Severe pain Ibuprofen [Motrin] 600 mg PO Q6H PRN PRN #30 tab PRN Reason: Pain NIFEdipine [Procardia Xl] 60 mg PO DAILY #30 tab Metformin HCl 1,000 mg PO BID #60 tab Follow-Up: Call to make an appointment with your doctor for an incision check in 1-2 weeks. You will also need a 6 week post- follow up appointment. Please Follow Up With: Ainsley Peters MD - Call to make an appointment for an incision check in 1-2 [phone] When: You will need a post- check in 6 weeks. Primary Care Physician: Care Physician,No Primary [Primary Care Provider] - 01/11/18 7165 <Electronically signed by Ainsley Peters MD> Date Ainsley Peters MD CC: No Primary Care Physician BEDSIDE GLUCOSE Collected: 01/11/2018 Status: F Source: [facility] 12:56 PM [facility] REPOSITORY TYPE CODE TESTS RESULT OUT OF RANGE REFERENCE UNITS LAB L501.080 70-110 mg/dL Normal BEDSIDE GLU 89 Result Comment: MANAGEMENT OF PATIENT CARE PER NURSING PROTOCOL Performed By: #### L501.080 #### [facility] Laboratory Point [place] [address] BEDSIDE GLUCOSE Collected: 01/11/2018 Status: F Source: [facility] 7:27 AM [facility] REPOSITORY TYPE CODE TESTS RESULT OUT OF RANGE REFERENCE UNITS LAB L501.080 70-110 mg/dL Normal BEDSIDE GLU 96 Result Comment: MANAGEMENT OF PATIENT CARE PER NURSING PROTOCOL Performed By: #### L501.080 #### [facility] [place] [address] CBC W/DIFF, AUTOMATED Collected: 01/10/2018 Status: F Source: [facility] 9:29 PM [facility] REPOSITORY TYPE CODE TESTS RESULT OUT OF RANGE REFERENCE UNITS LAB L100.1000 4.4-11.0 K/mm3 High WBC 12.0 LAB L100.1200 4.2-5.4 M/mm3 Low RBC 3.15 LAB L100.1300 12.0-15.0 g/dl Low HGB 8.8 LAB L100.1400 37-47 % Low HCT 26.1 LAB L100.1500 81-99 fL Normal MCV 82.9 LAB L100.1600 27.0-32.0 pg Normal MCH 27.9 LAB L100.1700 32-36 g/gl Normal MCHC 33.7 LAB L100.1810 11.6-14.6 % Normal RDW CV 13.4 LAB L100.1820 35.1-43.9 fl Normal RDW SD 40.7 LAB L100.1900 150-450 K/mm3 Normal PLT 204 LAB L100.2000 6.2-12.0 fl High MPV 12.4 LAB L100.2100 47-70 % High NEUT% 76.1 LAB L100.2200 19-41 % Normal LY% 21.7 LAB L100.2300 0-10 % Normal MONO% 1.6 LAB L100.2400 0-5 % Normal EO% 0.3 LAB L100.2500 0-1 % Normal BASO% 0.1 LAB L100.2550 0.0-0.9 % Normal IM GRAN % 0.200 Result Comment: IG% - Immature Granulocytes (promyelocytes, myelocytes and metamyelocytes) > 1% indicates that a LEFT SHIFT is Present. LAB L100.2620 2.0-7.7 X10 3/uL High Absolute Neut 9.1 LAB L100.2720 0.83-4.51 X10 3/ul Normal Absolute Lymph 2.61 Performed By: #### L100.0100, L300.3900, L300.4310, L300.4700 #### [facility] [address] [place], [address] PROTHROMBIN TIME W/INR Collected: 01/10/2018 Status: F Source: [place] 9:29 PM [facility] REPOSITORY TYPE CODE TESTS RESULT OUT OF RANGE REFERENCE UNITS LAB L300.4150 11.7-14.9 SECONDS Normal PROTIME 13.1 LAB L300.4200 Normal INR 1.0 Performed By: #### L100.0100, L300.3900, L300.4310, L300.4700 #### [facility] [address] [place], [place], [address] PARTIAL THROMBOPLAST Collected: 01/10/2018 Status: F Source: [place] TIME 9:29 PM [facility] REPOSITORY TYPE CODE TESTS RESULT OUT OF RANGE REFERENCE UNITS LAB L300.4310 24.1-36.2 Seconds Normal PTT 29.2 Performed By: #### L100.0100, L300.3900, L300.4310, L300.4700 #### [facility] [address] [place], [place], [id number] FIBRINOGEN Collected: 01/10/2018 Status: F Source: [place] 9:29 PM [facility] REPOSITORY TYPE CODE TESTS RESULT OUT OF RANGE REFERENCE UNITS LAB L300.4700 203-444 mg/dl High FIB 480 Performed By: #### L100.0100, L300.3900, L300.4310, L300.4700 #### [facility] [address] [place], [place], [address] BEDSIDE GLUCOSE Collected: 01/10/2018 Status: F Source: [place] 9:07 PM [facility] REPOSITORY TYPE CODE TESTS RESULT OUT OF REFERENCE UNITS RANGE LAB L501.080 70-110 mg/dL High BEDSIDE GLU 118 Result Comment: MANAGEMENT OF PATIENT CARE PER NURSING PROTOCOL Performed By: #### L501.080 #### [facility] Point of Care [address] [place], [place] [id number] BEDSIDE GLUCOSE Collected: 01/10/2018 Status: F Source: [facility] 5:13 PM [facility] REPOSITORY TYPE CODE TESTS RESULT OUT OF REFERENCE UNITS RANGE LAB L501.080 70-110 mg/dL High BEDSIDE GLU 113 Result Comment: MANAGEMENT OF PATIENT CARE PER NURSING PROTOCOL Performed By: #### L501.080 #### [facility] Point of Care [address] [place], [place] [id number] BEDSIDE GLUCOSE Collected: 01/10/2018 Status: F Source: [facility] 11:25 AM [facility] REPOSITORY TYPE CODE TESTS RESULT OUT OF REFERENCE UNITS RANGE LAB L501.080 70-110 mg/dL High BEDSIDE GLU 136 Result Comment: MANAGEMENT OF PATIENT CARE PER NURSING PROTOCOL Performed By: #### L501.080 #### [facility] Point of Care [address] [place] [address] BEDSIDE GLUCOSE Collected: 01/10/2018 Status: F Source: [facility] 8:06 AM [facility] REPOSITORY TYPE CODE TESTS RESULT OUT OF RANGE REFERENCE UNITS LAB L501.080 70-110 mg/dL Normal BEDSIDE GLU 88 Result Comment: MANAGEMENT OF PATIENT CARE PER NURSING PROTOCOL Performed By: #### L501.080 #### [facility] Point of Care [address] [place] [address] CBC-COMPLETE BLOOD CNT Collected: 01/10/2018 Status: F Source: [facility] NO DIFF 6:00 AM [facility] REPOSITORY Order Comment: Comments: Day #1 Reason for Laboratory Test TYPE CODE TESTS RESULT OUT OF RANGE REFERENCE UNITS LAB L100.1000 4.4-11.0 K/mm3 High WBC 22.1 LAB L100.1200 4.2-5.4 M/mm3 Low RBC 3.35 LAB L100.1300 12.0-15.0 g/dl Low HGB 9.5 LAB L100.1400 37-47 % Low HCT 27.7 LAB L100.1500 81-99 fL Normal MCV 82.7 LAB L100.1600 27.0-32.0 pg Normal MCH 28.4 LAB L100.1700 32-36 g/gl Normal MCHC 34.3 LAB L100.1810 11.6-14.6 % Normal RDW CV 12.8 LAB L100.1820 35.1-43.9 fl Normal RDW SD 37.3 LAB L100.1900 150-450 K/mm3 Normal PLT 232 LAB L100.2000 6.2-12.0 fl High MPV 13.4 Performed By: #### L100.0500 #### [facility] [address] [place], [address] COMPREHENSIVE METABOLIC Collected: 01/10/2018 Status: F Source: [facility] 6:00 AM [facility] REPOSITORY TYPE CODE TESTS RESULT OUT OF RANGE REFERENCE UNITS LAB L501.0100 74-106 mg/dL Normal GLU 104 Result Comment: Fasting Glucose result from 100 to 125 mg/dL suggests IMPAIRED HOMEOSTASIS per A.D.A. criteria. Please note revised GLUCOSE reference range effective 2017. LAB L501.1000 7-18 mg/dL Normal BUN 18 LAB L501.1100 0.55-1.02 mg/dL Low CREAT,SERUM 0.45 Result Comment: The validity of the calculated GFR AND GFRAA in patients over 70 years has not been determined. Clinical correlation is essential. LAB L501.1110 >60 mL/min Normal EST GFR 175 Result Comment: Non- GFR Calc LAB L501.1115 >60 mL/min Normal EST GFR - AA 212 Result Comment: GFR Calc LAB L501.1255 ml/min Normal Estimated CRCL 194.51 LAB L501.1300 10-20 RATIO High BUN/CRE 39.8 LAB L501.1500 6.4-8. g/dL Low 2 T PROT 5.7 LAB L501.1800 3.2-5. g/dL Low 0 ALB 2.0 LAB L501.1950 2.2-4. g/dL 2 GLOB Normal 3.7 LAB L501.2000 0.9-2. RATIO Low 4 A/G 0.5 LAB L501.2200 8.5-10 mg/dL Low .1 CA 7.4 LAB L501.4100 15-37 U/L AST Normal 15 LAB L501.4305 45-117 U/L ALK P Normal 98 LAB L501.4405 13-56 U/L Low ALT 10 Result Comment: Please note revised ALT reference range effective 2017. LAB L501.4600 0.20-1.00 mg/dL Normal T BILI 0.20 LAB L501.5300 136-145 mmol/L Normal NA 138 LAB L501.5600 3.5-5.1 mmol/L Normal K 4.1 LAB L501.5900 98-107 mmol/L Normal CL 106 LAB L501.6100 21.0-32.0 mmol/L Normal CO2 23.0 LAB L501.6200 5-15 Normal GAP 9 Performed By: #### L500.4050 #### [facility] [address] [place], [address] HEMOGLOBIN Collected: 01/10/2018 Status: F Source: [place] 12:25 AM [facility] REPOSITORY TYPE CODE TESTS RESULT OUT OF RANGE REFERENCE UNITS LAB L100.1300 12.0-15.0 g/dl Low HGB 10.3 Performed By: #### L100.1300 #### [facility] [address] [facility] [address] PROTHROMBIN TIME W/INR Collected: 01/10/2018 Status: F Source: [place] 12:25 AM [facility] REPOSITORY TYPE CODE TESTS RESULT OUT OF RANGE REFERENCE UNITS LAB L300.4150 11.7-14.9 SECONDS Normal PROTIME 14.0 LAB L300.4200 Normal INR 1.1 Performed By: #### L300.3900, L300.4310 #### [facility] [address] [place], [address] PARTIAL THROMBOPLAST Collected: 01/10/2018 Status: F Source: [place] TIME 12:25 AM [facility] REPOSITORY TYPE CODE TESTS RESULT OUT OF RANGE REFERENCE UNITS LAB L300.4310 24.1-36.2 Seconds Normal PTT 27.1 Performed By: #### L300.3900, L300.4310 #### [facility] [address] [place], [address] BEDSIDE GLUCOSE Collected: 01/09/2018 Status: F Source: [place] 10:31 PM [facility] REPOSITORY TYPE CODE TESTS RESULT OUT OF REFERENCE UNITS RANGE LAB L501.080 70-110 mg/dL High BEDSIDE GLU 125 Result Comment: MANAGEMENT OF PATIENT CARE PER NURSING PROTOCOL Performed By: #### L501.080 #### [facility] Point of Care [address] [place] [address] PATHOLOGY SPECIMEN OB Collected: 01/09/2018 Status: F Source: [place] 10:15 PM [facility] REPOSITORY Order Comment: Comments: stitch placed in right tube Send Specimen For (Specify): Studies @ [facility] Lab:Routine Time of Procedure: 1999 Date of Procedure: 01/09/18 Reason specimen being sent to pathology (Hx/complications): bilateral salpingectomy Type of specimen: Fallopian Tube Type of procedure performed: Repeat Section TYPE CODE TESTS RESULT OUT OF RANGE REFERENCE UNITS LAB L350.1800 SEE Normal PATH. PATHOLOGY Spec. OB REPORT Result Comment: Specimen submitted to Anatomical Pathology Department for testing. Performed By: #### L350.1800 #### [facility] [address] [place], [address] OPERATIVE REPORT Observed: 01/09/2018 Status: F Source: [place] 8:40 PM [facility] REPOSITORY [facility] Medical Records Department [address] [place] [address] Operative Report 01/09/186 MR#: [id number] Acct: [id number] Name: RADHA CASTRO Rep #: [id number] : 1990 27 From: Ainsley Peters MD PCP: Care Physician, No Primary Status: ADM IN Location: [place] [address] Problem List (1) Pre-eclampsia superimposed on chronic hypertension Status: Acute (2) Polyhydramnios Status: Acute Qualifiers: Comment: Seen at follow up growth US with M on 12/02/17 (3) Supervision of high-risk Status: Acute Qualifiers: Comment: PRR DAVID 02/18/18 boy Bronson Whelan Nikita (4) Diabetes mellitus affecting in second trimester Status: Acute Comment: Class B follows [facility], testing 2 times a week starting at 32 weeks, growth assessment every 4 weeks, co- manage visit in [address] Manuel Dutton. (5) History of pre-eclampsia in prior , currently in second trimester Status: Acute Comment: severe preeclampsia delivered at 28 weeks. negative APL workup, on baby ASA (6) History of delivery, currently Status: Acute Comment: considering - 63.7 percent chance of success, info given and consent signed plans TL (7) UTI (urinary tract infection) in in first trimester Status: Acute Comment: several utis- recommend daily keflex to prevent (8) Chronic hypertension affecting Status: Acute Comment: procardia 60mg XL Report of Operation Date of Procedure: 01/09/18 Pre-Operative Diagnosis: Insulin-dependent diabetes, chronic hypertension with superimposed preeclampsia with severe features, previous , desired sterilization, 34 weeks 2 days Post-Operative Diagnosis: Same Surgery/Procedure Performed:: Repeat low transverse and bilateral tubal ligation Via Bullard method Description of Surgical Findings:: Normal uterus tubes and ovaries 2 cm fundal subserosal fibroid, thin lower uterine segment, minimal scar tissue director of email marketing: Chayo Presley Type of Anesthesia:: Spinal Special Medications: Ancef, magnesium Specimen's removed: Male vertex presentation Drains: Catheter Estimated Blood Loss (mL): 800cc Fluids Replaced: Crystalloid Description of Procedure: The patient is a 27-year-old at 4 weeks 2 days presents with insulin-dependent diabetes chronic hypertension with superimposed preeclampsia with severe features. Patient presented for monitoring and steroids and initially had mildly elevated blood pressures and then after 24 hours developed severely elevated blood pressure persistent headache. Phone consultation with [facility] recommended immediate delivery. Spinal anesthesia was placed without difficulty. Patiño catheter was placed. The patient was placed in the dorsal supine position with leftward tilt. Patient was prepped and draped in the normal sterile fashion. Pfannenstiel skin incision was made with the scalpel and carried through to the underlying layer of fascia with the scalpel. Fascia was nicked in the midline and the incision extended laterally. The rectus bellies were dissected off superiorly and inferiorly with out complication both sharply and bluntly. The peritoneum was entered digitally. The incision was stretched and a low transverse uterine incision was made with the scalpel. The infant's head was delivered atraumatically followed by the anterior and posterior shoulders without complication the rest of the infant delivered. The cord was clamped and cut and the infant was handed off to awaiting nurse. The placenta was delivered spontaneously immediately following and was noted to be intact and have a three-vessel cord. The uterus was exteriorized cleared of all clots and debris, and the incision was closed using #1 Monocryl. Bilateral fallopian tubes were elevated and the mesosalpinx incised with the Bovie and fallopian tubes were transected proximally and distally after tying with plain gut suture. Excellent hemostasis was noted. The uterus was returned to the maternal abdomen and gutters were cleared of all clots and debris. The ovaries and fallopian tubes were noted to be within normal limits. The peritoneum was closed with 3-0 Monocryl in a running fashion. Fascia was closed with 0 PDS in a running fashion. Subcutaneous tissue was copiously irrigated and the skin was closed with 3-0 Monocryl in a subcuticular fashion. Steri-Strips and Mepilex dressing were applied without complication. Patient was taken to recovery in stable condition. Grafts/Implants Used: None - Complications None 01/09/182039 <Electronically signed by Ainsley Peters MD> Date Ainsley Peters MD CC: No Primary Care Physician; Ainsley Peters MD Signed BEDSIDE GLUCOSE Collected: 01/09/2018 Status: F Source: [place] 8:23 PM [facility] REPOSITORY TYPE CODE TESTS RESULT OUT OF REFERENCE UNITS RANGE LAB L501.080 70-110 mg/dL High BEDSIDE GLU 138 Result Comment: MANAGEMENT OF PATIENT CARE PER NURSING PROTOCOL Performed By: #### L501.080 #### [facility] Point of Care [address] [place] [address]. [place] [address] FALLOPIAN TUBES/STERILIZATION Observed: 01/09/2018 Status: F Source: [place] 8:00 PM [facility] REPOSITORY Patient: RADHA CASTRO : 1990 (/) Acct Num: [id number] Phys: Ainsley Peters MD Unit Num: [id number] Loc: WP ZS151-9 Specimen: [id number] Received: 01/09/182229 Spec Type: FALL TUBES TISSUES TISSUES: Fallopian tube GROSS DESCRIPTION Received is one container labeled with the patient's name and not further designated. The specimen consists of two tubular pieces of stark soft tissue consistent with portion of fallopian tube. The fimbrial end is not identified. The right tube is identified by a suture. The right tube measures 3 cm in length and 0.5 cm in diameter. The left tube measures 3 cm in length and 0.5 cm in diameter. The entire specimen is submitted in two cassettes as follows: 1 - right fallopian tube, 2 - left fallopian tube. Both pieces will be serially sectioned at the time of embedding. / ROBERT:marly 01/10/18 TC:4 CPT: 97693 x2 HEADER OPERATION: Bilateral salpingectomy PRE-OP DIAGNOSIS: Not noted TISSUE SUBMITTED: Fallopian tubes MICROSCOPIC DESCRIPTION Slides are reviewed. MICROSCOPIC DIAGNOSIS Bilateral fallopian tubes, bilateral salpingectomy: Completely transected segment of bilateral fallopian tubes, no pathologic diagnosis. ROBERT:marly 01/11/18 Signed Randal Negrete 01/11/18 <signature on file> Performed By: #### PFALS #### [facility] [address] [place], [address] BEDSIDE GLUCOSE Collected: 01/09/2018 Status: F Source: [place] 7:00 PM [facility] REPOSITORY TYPE CODE TESTS RESULT OUT OF REFERENCE UNITS RANGE LAB L501.080 70-110 mg/dL High BEDSIDE GLU 158 Result Comment: MANAGEMENT OF PATIENT CARE PER NURSING PROTOCOL Performed By: #### L501.080 #### [facility] Point of Care [address] [address] CBC-COMPLETE BLOOD CNT Collected: 01/09/2018 Status: F Source: [place] NO DIFF 4:15 PM [facility] REPOSITORY TYPE CODE TESTS RESULT OUT OF RANGE REFERENCE UNITS LAB L100.1000 4.4-11.0 K/mm3 High WBC 11.9 LAB L100.1200 4.2-5.4 M/mm3 Low RBC 4.06 LAB L100.1300 12.0-15.0 g/dl Low HGB 11.2 LAB L100.1400 37-47 % Low HCT 33.5 LAB L100.1500 81-99 fL Normal MCV 82.5 LAB L100.1600 27.0-32.0 pg Normal MCH 27.6 LAB L100.1700 32-36 g/gl Normal MCHC 33.4 LAB L100.1810 11.6-14.6 % Normal RDW CV 13.2 LAB L100.1820 35.1-43.9 fl Normal RDW SD 40.1 LAB L100.1900 150-450 K/mm3 Normal PLT 219 LAB L100.2000 6.2-12.0 fl High MPV 12.9 Performed By: #### L100.0500, L500.4050 #### [facility] [address] [place], [address] COMPREHENSIVE METABOLIC Collected: 01/09/2018 Status: F Source: [facility] 4:15 PM [facility] REPOSITORY TYPE CODE TESTS RESULT OUT OF RANGE REFERENCE UNITS LAB L501.0100 74-106 mg/dL High GLU 179 Result Comment: Fasting Glucose result greater than or equal to 126 mg/dL suggests DIABETES MELLITUS per A.D.A. criteria. Please note revised GLUCOSE reference range effective 2017. LAB L501.1000 7-18 mg/dL Normal BUN 17 LAB L501.1100 0.55-1.02 mg/dL Normal CREAT,SERUM 0.68 Result Comment: The validity of the calculated GFR AND GFRAA in patients over 70 years has not been determined. Clinical correlation is essential. LAB L501.1110 >60 mL/min Normal EST GFR 109 Result Comment: Non- GFR Calc LAB L501.1115 >60 mL/min Normal EST GFR - AA 132 Result Comment: GFR Calc LAB L501.1255 ml/min Normal Estimated CRCL 128.72 LAB L501.1300 10-20 RATIO High BUN/CRE 24.9 LAB L501.1500 6.4-8. g/dL 2 T PROT Normal 6.9 LAB L501.1800 3.2-5. g/dL Low 0 ALB 2.3 LAB L501.1950 2.2-4. g/dL High 2 GLOB 4.6 LAB L501.2000 0.9-2. RATIO Low 4 A/G 0.5 LAB L501.2200 8.5-10 mg/dL .1 CA Normal 8.5 LAB L501.4100 15-37 U/L Low AST 13 LAB L501.4305 45-117 U/L High ALK P 120 LAB L501.4405 13-56 U/L Low ALT 12 Result Comment: Please note revised ALT reference range effective 2017. LAB L501.4600 0.20-1.00 mg/dL Normal T BILI 0.20 LAB L501.5300 136-145 mmol/L Normal NA 138 LAB L501.5600 3.5-5.1 mmol/L Normal K 4.0 LAB L501.5900 98-107 mmol/L Normal CL 105 LAB L501.6100 21.0-32.0 mmol/L Normal CO2 21.0 LAB L501.6200 5-15 Normal GAP 12 Performed By: #### L100.0500, L500.4050 #### [facility] [address] [place], [address] BEDSIDE GLUCOSE Collected: 01/09/2018 Status: F Source: [place] 2:17 PM [facility] REPOSITORY TYPE CODE TESTS RESULT OUT OF REFERENCE UNITS RANGE LAB L501.080 70-110 mg/dL High BEDSIDE GLU 174 Result Comment: MANAGEMENT OF PATIENT CARE PER NURSING PROTOCOL Performed By: #### L501.080 #### [facility] Point of Care [address] [place] [address] BEDSIDE GLUCOSE Collected: 01/09/2018 Status: F Source: [place] 10:40 AM [facility] REPOSITORY TYPE CODE TESTS RESULT OUT OF REFERENCE UNITS RANGE LAB L501.080 70-110 mg/dL High BEDSIDE GLU 213 Result Comment: MANAGEMENT OF PATIENT CARE PER NURSING PROTOCOL Performed By: #### L501.080 #### [facility] Point of Care [address] [place] [address] HISTORY AND PHYSICAL Observed: 01/09/2018 Status: F Source: [place] EXAM 6:42 AM [facility] REPOSITORY [facility] Medical Records Department [address] [place] [address] History and Physical 01/09/18 0634 MR#: [id number] Acct: [id number] Name: RADHA CASTRO Rep #: [id number] : 1990 27 From: Ainsley Peters MD PCP: Care Physician, No Primary Status: REG CLI Y Location: [id number] - Problem List (1) Pre-eclampsia superimposed on chronic hypertension Status: Acute (2) Polyhydramnios Status: Acute Qualifiers: Comment: Seen at follow up growth US with MFM on 12/02/17 (3) Supervision of high-risk Status: Acute Qualifiers: Comment: PRR DAVID 02/18/18 [facility] [place] Nikita (4) Diabetes mellitus affecting in second trimester Status: Acute Comment: Class B follows with [facility] MFM, testing 2 times a week starting at 32 weeks, growth assessment every 4 weeks, co- manage visit in [address] Manuel Dutton. (5) History of pre-eclampsia in prior , currently in second trimester Status: Acute Comment: severe preeclampsia delivered at 28 weeks. negative APL workup, on baby ASA (6) History of delivery, currently Status: Acute Comment: considering - 63.7 percent chance of success, info given and consent signed plans TL (7) UTI (urinary tract infection) in in first trimester Status: Acute Comment: several utis- recommend daily keflex to prevent (8) Chronic hypertension affecting Status: Acute Comment: procardia 60mg XL History Date of Admission: 01/08/18 Final DAVID: 02/18/18 Gestational age: 34 Weeks and 2 Days History of this : 27 yo @ 34w1d presents with superimposed preeclampsia on cHTN. she has had chtn well controlled in this and then recently developed elevated bps and proteinuria yesterday. she denies any ALDRICH or BV. she has had some nausea and vomiting. she denies any vb lof and admits good fm. BS are well controlled on insulin. Pertinent Past Medical History: Medical History Diabetes (Acute) Preeclampsia (Acute) Hypertension (Chronic) Surgical History delivery delivered (Acute) Family History Grandmother Diabetes Hypertension Breast cancer Cancer Lung Grandfather Diabetes Father Diabetes Social History Smoking Status: Never smoker alcohol intake: never substance use type: does not use what type of physical activity do you participate in: none seatbelt use: always do you feel safe at home: Yes additional social history: Spouse Yuval Pregancy History 2 Elective abortions Hx Para 1 Spontaneous abortions Past Pregnancies Del. DateName GA/Weeks Outcome Route Bth WeighInfant GeLabor LgtAnesthesiDel LocatProvider FOB t n h a n Allergies No Known Allergies Allergy (Verified 01/08/18 15:15) Current Medications Acetaminophen (Tylenol) 650 mg PO Q6H PRN PRN PRN Reason: PAIN Last Admin: 01/08/18 22:58 Dose: 650 mg Cephalexin (Keflex) 500 mg PO TID DESTINY Last Admin: 01/09/18 05:31 Dose: 500 mg Dexamethasone Sodium Phosphate (Decadron) 6 mg IM Q12H DESTINY Stop: 01/10/18 05:01 Last Admin: 01/09/18 05:31 Dose: 6 mg Insulin Aspart (Novolog Flexpen (Bkc)) 17 units SC BREAKFAST DESTINY Insulin Aspart (Novolog Flexpen (Bkc)) 13 units SC LUNCH DESTINY Insulin Aspart (Novolog Flexpen (Bkc)) 26 units SC SUPPER DESTINY Insulin Human NPH (Humulin N (Bkc)) 13 units SC QHS DESTINY Last Admin: 01/08/18 21:59 Dose: 13 units Insulin Human NPH (Humulin N (Bkc)) 37 units SC BREAKFAST DESTINY Nifedipine (Procardia Xl) 60 mg PO DAILY [facility] Smoking Status: Never smoker Alcohol: None Drug Use: none Number of Fetus(es): 1 - fhts 140s moderate variability reactive no decels category I tracing toco irritability Review of Systems Constitutional: Denies: Chills, Fever, Weight Change Eyes: Denies: Blurred vision HEENT: Denies: Head Aches, Sinus Congestion, Sinus Drainage Cardiovascular: Denies: Chest Pain, Palpitations Respiratory: Denies: Cough, Shortness of breath at rest, Sputum production Gastrointestinal: Reports: Nausea, Vomiting. Denies: Abdominal Pain Genitourinary: Denies: Dysuria Gynecological: Denies: Vaginal bleeding, Vaginal discharge Musculoskeletal: Denies: Joint Pain, Joint Tenderness Skin: Denies: Rash, Wounds Neurological: Denies: Numbness, Tingling, Focal weakness Psychiatric: Denies: Anxiety, Depression Hematologic/ Lymphatic: Denies: Easy Bruising, Easy Bleeding Physical Exam General: Alert, Oriented x3, No apparent distress Cardiovascular: Regular rate Lungs: Normal air movement Abdomen: Soft, Non Tender, Gravid Extremities:: No edema Estimated gestational size: Large for gestational age Presentation: Cephalic Assessment/Plan Active and Suspected Problems (Last Reviewed 01/07/18 @ 09:53 by Glo Restrepo) Pre-eclampsia superimposed on chronic hypertension (Acute) 27 yo @ 34w1d presents with cHTN and SI preeclampsia with mild features 1. cHTN with SI preeclampsia with mild features- admit for STO, monitor bps, check labs and repeat urine protein creatinine ratio. continue procardia 60mg XL 2. prematurity- previous reaction to BMZ will give dexamethasone 3. previous csection- if cervix favorable or IAL plan TOLAC otherwise plan RLTCS and BTL 4. polyhdramnios 5. insulin dependent diabetes- increase all insulin 10% except dinner insulin due to low blood sugar this afternoon secondary to skipping lunch 6. recurrent UTI- on keflex treatment right now plan prophylaxis afterwards 01/09/18 0642 <Electronically signed by Ainsley Peters MD> Date Ainsley Peters MD Cosign Signature: Date (if applicable) CC: No Primary Care Physician; Ainsley Peters MD Signed BEDSIDE GLUCOSE Collected: 01/09/2018 Status: F Source: [place] 5:28 AM [facility] REPOSITORY TYPE CODE TESTS RESULT OUT OF REFERENCE UNITS RANGE LAB L501.080 70-110 mg/dL High BEDSIDE GLU 130 Result Comment: MANAGEMENT OF PATIENT CARE PER NURSING PROTOCOL Performed By: #### L501.080 #### [facility] Point of Care [facility] [place] [address] BEDSIDE GLUCOSE Collected: 01/08/2018 Status: F Source: [place] 7:48 PM [facility] REPOSITORY TYPE CODE TESTS RESULT OUT OF REFERENCE UNITS RANGE LAB L501.080 70-110 mg/dL High BEDSIDE GLU 152 Result Comment: MANAGEMENT OF PATIENT CARE PER NURSING PROTOCOL Performed By: #### L501.080 #### [facility] Point of Care [address] [place] [place] [address] PROTEIN+CREATININE Collected: Status: F Source: [place] RATIO,URINE 01/08/2018 4:10 PM [facility] REPOSITORY TYPE CODE TESTS RESULT OUT OF RANGE REFERENCE UNITS LAB L501.1200 NO RANGE EST. mg/dL Normal UR CREAT 259.00 LAB L501.1930 <11.9 mg/dL High 108.3 PROTEIN,UR.R AN. LAB L501.1940 0-200 mg/g CRE High PROT:CRE 418 RATIO Performed By: #### L100.0500, L501.0900, L300.3900, L300.4310 #### [facility] [address] [place], [address] BEDSIDE GLUCOSE Collected: 01/08/2018 Status: F Source: [place] 3:56 PM [facility] REPOSITORY TYPE CODE TESTS RESULT OUT OF RANGE REFERENCE UNITS LAB L501.080 70-110 mg/dL Normal BEDSIDE GLU 72 Result Comment: MANAGEMENT OF PATIENT CARE PER NURSING PROTOCOL Performed By: #### L501.080 #### [facility] Point of Care [address] [place] [place] [address] CBC-COMPLETE BLOOD CNT Collected: 01/08/2018 Status: F Source: [place] NO DIFF 3:20 PM [facility] REPOSITORY TYPE CODE TESTS RESULT OUT OF RANGE REFERENCE UNITS LAB L100.1000 4.4-11.0 K/mm3 Normal WBC 10.2 LAB L100.1200 4.2-5.4 M/mm3 Normal RBC 4.39 LAB L100.1300 12.0-15.0 g/dl Normal HGB 12.1 LAB L100.1400 37-47 % Low HCT 36.2 LAB L100.1500 81-99 fL Normal MCV 82.5 LAB L100.1600 27.0-32.0 pg Normal MCH 27.6 LAB L100.1700 32-36 g/gl Normal MCHC 33.4 LAB L100.1810 11.6-14.6 % Normal RDW CV 13.2 LAB L100.1820 35.1-43.9 fl Normal RDW SD 40.0 LAB L100.1900 150-450 K/mm3 Normal PLT 235 LAB L100.2000 6.2-12.0 fl High MPV 13.7 Performed By: #### L100.0500, L501.0900, L300.3900, L300.4310 #### [facility] [address] [place], [address] PROTHROMBIN TIME W/INR Collected: 01/08/2018 Status: F Source: [place] 3:20 PM [facility] REPOSITORY TYPE CODE TESTS RESULT OUT OF RANGE REFERENCE UNITS LAB L300.4150 11.7-14.9 SECONDS Normal PROTIME 13.9 LAB L300.4200 Normal INR 1.1 Performed By: #### L100.0500, L501.0900, L300.3900, L300.4310 #### [facility] [address] [place], [address] PARTIAL THROMBOPLAST Collected: 01/08/2018 Status: F Source: [place] TIME 3:20 PM [facility] REPOSITORY TYPE CODE TESTS RESULT OUT OF RANGE REFERENCE UNITS LAB L300.4310 24.1-36.2 Seconds Normal PTT 29.3 Performed By: #### L100.0500, L501.0900, L300.3900, L300.4310 #### [facility] [address] [place], [address] SERUM CREATININE AND Collected: 01/08/2018 Status: F Source: [place] GFR 3:20 PM [facility] REPOSITORY TYPE CODE TESTS RESULT OUT OF RANGE REFERENCE UNITS LAB L501.1100 0.55-1.02 mg/dL Low 0.43 CREAT,SERUM Result Comment: The validity of the calculated GFR AND GFRAA in patients over 70 years has not been determined. Clinical correlation is essential. LAB L501.1110 >60 mL/min Normal EST GFR 184 Result Comment: Non- GFR Calc LAB L501.1115 >60 mL/min Normal EST GFR - AA 222 Result Comment: GFR Calc LAB L501.1255 ml/min Normal Estimated CRCL 203.56 Performed By: #### L501.1105, L501.1400, L501.4100, L501.4405 #### [facility] [address] [place], [address] URIC ACID Collected: 01/08/2018 Status: F Source: [place] 3:20 PM [facility] REPOSITORY TYPE CODE TESTS RESULT OUT OF RANGE REFERENCE UNITS LAB L501.1400 2.6-6.0 mg/dL Normal URIC 4.3 Result Comment: The drugs N-Acetylcysteine and Metamizole may falsely depress this assay. Performed By: #### L501.1105, L501.1400, L501.4100, L501.4405 #### [facility] [address] [place], [address] AST(SGOT) Collected: 01/08/2018 Status: F Source: [place] 3:20 PM [facility] REPOSITORY TYPE CODE TESTS RESULT OUT OF RANGE REFERENCE UNITS LAB L501.4100 15-37 U/L Low AST 14 Performed By: #### L501.1105, L501.1400, L501.4100, L501.4405 #### [facility] [address] [place], [address] ALANINE AMINOTRANSFERAS Collected: 01/08/2018 Status: F Source: [place] (SGPT) 3:20 PM [facility] REPOSITORY TYPE CODE TESTS RESULT OUT OF RANGE REFERENCE UNITS LAB L501.4405 13-56 U/L Low ALT 10 Result Comment: Please note revised ALT reference range effective 2017. Performed By: #### L501.1105, L501.1400, L501.4100, L501.4405 #### [facility] [address] [place], [place], [address] TYPE AND SCREEN Collected: 01/08/2018 Status: F Source: [place] 3:20 PM [facility] REPOSITORY Order Comment: Reason for Type AND Screen/Red Cells: ROUTINE TYPE CODE TESTS RESULT OUT OF RANGE REFERENCE UNITS LAB B10.0800 A Normal BLOOD TYPE GEL POSITIVE LAB B100.4000 Normal Antibody NEGATIVE Screen Performed By: #### B101.7450 #### [facility] [address] [place], [address] PROTEIN+CREATININE Collected: Status: F Source: [place] RATIO,URINE 01/07/2018 2:54 PM [facility] REPOSITORY TYPE CODE TESTS RESULT OUT OF RANGE REFERENCE UNITS LAB L501.1200 NO RANGE EST. mg/dL Normal UR CREAT 170.00 LAB L501.1930 <11.9 mg/dL High 78.7 PROTEIN,UR.R AN. LAB L501.1940 0-200 mg/g CRE High PROT:CRE 463 RATIO Performed By: #### L501.0900 #### [facility] [address] [place], [address] GROUP B STREP DNA Collected: 01/07/2018 Status: F Source: [place] BY PCR 2:54 PM [facility] REPOSITORY Order Comment: Source: Vaginal-Rectal TYPE CODE TESTS RESULT OUT OF REFERENCE UNITS RANGE LAB L8200.0100 Negative High GBS TEST POSITIVE RESULT Result Comment: Penicillin is the recommended antibiotic for the treatment of Group B Streptococcal disease. In case of penicillin allergy, susceptibility testing for Clindamycin and Erythromycin is suggested by request. Performed By: #### L8200.0000 #### [facility] [address] [place], [address] CBC W/DIFF, AUTOMATED Collected: 01/07/2018 Status: F Source: [place] 10:56 AM [facility] REPOSITORY TYPE CODE TESTS RESULT OUT OF RANGE REFERENCE UNITS LAB L100.1000 4.4-11.0 K/mm3 Normal WBC 9.7 LAB L100.1200 4.2-5.4 M/mm3 Normal RBC 4.32 LAB L100.1300 12.0-15.0 g/dl Low HGB 11.9 LAB L100.1400 37-47 % Low HCT 35.6 LAB L100.1500 81-99 fL Normal MCV 82.4 LAB L100.1600 27.0-32.0 pg Normal MCH 27.5 LAB L100.1700 32-36 g/gl Normal MCHC 33.4 LAB L100.1810 11.6-14.6 % Normal RDW CV 13.0 LAB L100.1820 35.1-43.9 fl Normal RDW SD 38.4 LAB L100.1900 150-450 K/mm3 Normal PLT 224 LAB L100.2000 6.2-12.0 fl High MPV 13.1 LAB L100.2100 47-70 % Normal NEUT% 60.8 LAB L100.2200 19-41 % Normal LY% 28.1 LAB L100.2300 0-10 % Normal MONO% 9.7 LAB L100.2400 0-5 % Normal EO% 0.7 LAB L100.2500 0-1 % Normal BASO% 0.2 LAB L100.2550 0.0-0.9 % Normal IM GRAN % 0.500 Result Comment: IG% - Immature Granulocytes (promyelocytes, myelocytes and metamyelocytes) > 1% indicates that a LEFT SHIFT is Present. LAB L100.2620 2.0-7.7 X10 3/uL Normal Absolute Neut 5.9 LAB L100.2720 0.83-4.51 X10 3/ul Normal Absolute Lymph 2.73 Performed By: #### L100.0100, B101.7450 #### [facility] [address] [place], [place], [address] TYPE AND SCREEN Collected: 01/07/2018 Status: F Source: [place] 10:56 [facility] REPOSITORY Order Comment: Reason for Type AND Screen/Red Cells: TYPE CODE TESTS RESULT OUT OF RANGE REFERENCE UNITS LAB B10.0800 A Normal BLOOD TYPE GEL POSITIVE LAB B100.4000 Normal Antibody NEGATIVE Screen Performed By: #### L100.0100, B101.7450 #### [facility] [address] [place], [place], [address] COMPREHENSIVE METABOLIC Collected: 01/07/2018 Status: F Source: [facility] 10:56 [facility] REPOSITORY Order Comment: Serial Specimen #1, #2 or #3? 1 TYPE CODE TESTS RESULT OUT OF RANGE REFERENCE UNITS LAB L501.0100 74-106 mg/dL Normal GLU 91 Result Comment: Please note revised GLUCOSE reference range effective 2017. LAB L501.1000 7-18 mg/dL Normal BUN 11 LAB L501.1100 0.55-1.02 mg/dL Low CREAT,SERUM 0.47 Result Comment: The validity of the calculated GFR AND GFRAA in patients over 70 years has not been determined. Clinical correlation is essential. LAB L501.1110 >60 mL/min Normal EST GFR 166 Result Comment: Non- GFR Calc LAB L501.1115 >60 mL/min Normal EST GFR - AA 201 Result Comment: GFR Calc LAB L501.1300 10-20 RATIO High BUN/CRE 23.2 LAB L501.1500 6.4-8.2 g/dL T Normal PROT 7.0 LAB L501.1800 3.2-5.0 g/dL Low ALB 2.4 LAB L501.1950 2.2-4.2 g/dL High GLOB 4.6 LAB L501.2000 0.9-2.4 RATIO Low A/G 0.5 LAB L501.2200 8.5-10.1 mg/dL CA Normal 8.7 LAB L501.4100 15-37 U/L Low AST 13 LAB L501.4305 45-117 U/L High ALK P 120 LAB L501.4405 13-56 U/L Low ALT 11 Result Comment: Please note revised ALT reference range effective 2017. LAB L501.4600 0.20-1.00 mg/dL Normal T BILI 0.30 LAB L501.5300 136-145 mmol/L Normal NA 139 LAB L501.5600 3.5-5.1 mmol/L Normal K 4.0 LAB L501.5900 98-107 mmol/L Normal CL 107 LAB L501.6100 21.0-32.0 mmol/L Normal CO2 23.0 LAB L501.6200 5-15 Normal GAP 9 Performed By: #### L500.4050, L501.1400, L504.2610 #### [facility] [address] [place], [address] URIC ACID Collected: 01/07/2018 Status: F Source: ISACC 10:56 AM [facility] REPOSITORY Order Comment: Serial Specimen #1, #2 or #3? 1 TYPE CODE TESTS RESULT OUT OF RANGE REFERENCE UNITS LAB L501.1400 2.6-6.0 mg/dL Normal URIC 4.2 Result Comment: The drugs N-Acetylcysteine and Metamizole may falsely depress this assay. Performed By: #### L500.4050, L501.1400, L504.2610 #### [facility] [address] [place], [address] LDH Collected: 01/07/2018 Status: F Source: [place] 10:56 AM [facility] REPOSITORY Order Comment: Serial Specimen #1, #2 or #3? 1 TYPE CODE TESTS RESULT OUT OF RANGE REFERENCE UNITS LAB L504.2610 84-246 U/L Normal LDH 166 Performed By: #### L500.4050, L501.1400, L504.2610 #### [facility] [address] [place], [address] PROTEIN+CREATININE Collected: Status: F Source: ISACC BARTHURINE 01/07/2018 10:56 AM [facility] REPOSITORY TYPE CODE TESTS RESULT OUT OF RANGE REFERENCE UNITS LAB L501.1200 NO RANGE EST. mg/dL Normal UR CREAT 116.00 LAB L501.1930 <11.9 mg/dL High 49.8 PROTEIN,UR.R AN. LAB L501.1940 0-200 mg/g CRE High PROT:CRE 429 RATIO Performed By: #### L501.0900 #### [facility] [address] [place], [address] RUBELLA IGG Collected: 01/07/2018 Status: F Source: ISACC 10:56 AM [facility] REPOSITORY TYPE CODE TESTS RESULT OUT OF RANGE REFERENCE UNITS LAB L509.4000 IU/mL Normal Rubella IgG 53.7 Result Comment: Antibody results Interpretation of Immune Status < 5 IU/ml Presumed Non-immune 5 - < 10 IU/ml Equivocal > or = 10 IU/ml Presumed Immune Performed By: #### L509.4000, L3890.6005, L700.5000 #### [facility] [address] [place], [address] HIV - [facility] Collected: 01/07/2018 Status: F Source: ISACC 10:56 AM [facility] REPOSITORY TYPE CODE TESTS RESULT OUT OF RANGE REFERENCE UNITS LAB L3890.6005 Nonreactive Normal HIV - [facility] Non-Reactive Performed By: #### L509.4000, L3890.6005, L700.5000 #### [facility] [address] [place], [address] RAPID PLASMIN REAGIN Collected: 01/07/2018 Status: F Source: ISACC (RPR) 10:56 AM [facility] REPOSITORY TYPE CODE TESTS RESULT OUT OF REFERENCE UNITS RANGE LAB L700.5000 NONREACTIVE NONREACTIVE Normal RPR Performed By: #### L509.4000, L3890.6005, L700.5000 #### [facility] [address] [place], [address] ANCHOR TACK PULLER OFFICE VISIT Observed: 01/07/2018 Status: F Source: ISACC REPORT 10:38 AM [facility] REPOSITORY [facility] [address] [place] [address] OFFICE VISIT Date of Service: 01/07/18 MR#: [id number] Acct: [id number] Name: RADHA CASTRO Richy Rep #: [id number] : 1990 Provider: Ainsley Peters MD Age/Sex: 27/F [place] [facility] [place] Signed Intake Vital Signs01/07/18 Height 5 ft 9 in 01/07/18 Weight: 264 lb 01/07/18 Body Mass Index (BMI) 38.9 01/07/18 Blood Pressure 141/93 Intake Visit Reasons: 34 weeks Allergies No Known Allergies Allergy (Verified 01/07/18 09:52) Medications blood sugar diagnostic strips See Dose Instructions .ROUTE .MEDSUPPLY #20 ea 10/06/17 [History Confirmed 01/07/18] vitamin,calcium,rkztufkv-bqyr-ifxvf acid tablet 1 tab PO QDAY 10/06/17 [History Confirmed 01/07/18] Aspirin [Aspirin, Baby] 81 mg PO DAILY@0800 11/15/17 [History Confirmed 01/07/18] Insulin NPH Human Isophane [Humulin N Vial] 34 units SQ BREAKFAST 11/15/17 [History Confirmed 01/07/18] Insulin NPH Human Isophane [Humulin N] 12 units SC PCHS 11/15/17 [History Confirmed 01/07/18] Insulin Regular, Human [Novolin R] 12 unit SQ LUNCH 11/15/17 [History Confirmed 01/07/18] Insulin Regular, Human [Novolin R] 16 unit SQ BREAKFAST 11/15/17 [History Confirmed 01/07/18] Insulin Regular, Human [Novolin R] 24 unit SC DINNER 11/15/17 [History Confirmed 01/07/18] Nifedipine [Procardia Xl] 30 mg PO DAILY 11/15/17 [History Confirmed 01/07/18] Nitrofurantoin Macrocrystal [Macrodantin] 100 mg PO Q6H 11/15/17 [History Confirmed 01/07/18] cephalexin 500 mg capsule 500 mg PO QDAY #30 cap 11/15/17 [Rx Confirmed 01/07/18] cephalexin 500 mg capsule 500 mg PO TID 7 Days #21 cap 01/07/18 [Rx Confirmed 01/07/18] Last Menstral Period: 05/14/17 Zika: Zika virus screening: Negative : No PFSH PFSH Medical History Diabetes (Acute) Preeclampsia (Acute) Hypertension (Chronic) Surgical History delivery delivered (Acute) Family History Grandmother Diabetes Hypertension Breast cancer Cancer Lung Grandfather Diabetes Father Diabetes Social History Smoking Status: Never smoker alcohol intake: never substance use type: does not use what type of physical activity do you participate in: none seatbelt use: always do you feel safe at home: Yes additional social history: Spouse Yuval Pregancy History 2 Elective abortions Hx Para 1 Spontaneous abortions Past Pregnancies Del. DateName GA/Weeks Outcome Route Bth WeighInfant GeLabor LgtAnesthesiDel LocatProvider FOB t n h a n HPI 34 weeks: Details: RADHA CASTRO is a 27 year old who presents for routine OB visit. OB Visit DAVID Calculator Estimated Delivery Date 02/18/18 Based on LMP (certain) 05/14/17 Current WG 34w 0d Number 1 Expected Delivery Route/Plan TOLAC if spontaneous labor, otherwise RLTCS and BTL @ 37 weeks per MFM title 19 signed 12/30/17 Specific Issue/Plans flu vaccine given tdap given Initial Weight: Not Recorded Date Weight BP Urine PrFHR FuHt Pres MoCTX DilationFetal StVisit NoProviderComments E ot v te GA G Effac lucose ed Visit Notes Visit Date: 01/07/18 bps mildly elevated today- no ALDRICH BV recommend doubling procardia to 60mg and check bloodwork now, urine protein creatinine ratio. Ainsley Peters MD on 01/07/18 weekly nst, title 19 signed plan tl, picking up antibiotic Ainsley Peters MD on 12/30/17 weekly nst, title 19 signed plan tl, picking up antibiotic Ainsley Peters MD on 12/30/17 no vb lof good fm no regular ctx Ainsley Peters MD on 12/01/17 Visit Date: 12/30/17 weekly nst, title 19 signed plan tl, picking up antibiotic Ainsley Peters MD on 12/30/17 no vb lof good fm no regular ctx Ainsley Peters MD on 12/01/17 no vb lof good fm no regular ctx Ainsley Peters MD on 12/01/17 Visit Date: 12/22/17 no vb lof good fm no regular ctx Ainsley Peters MD on 12/01/17 no vb lof good fm no regular ctx Ainsley Peters MD on 12/01/17 Visit Date: 12/01/17 no vb lof good fm no regular ctx Ainsley Peters MD on 12/01/17 vaginal discharge yellowish and increased UTI symptoms. hasn't started daily keflex yet. urine culture sent. no vb good fm no regular ctx. BS fairly controlled Ainsley Peters MD on 12/01/17 Doing well. Rare CTX, denies LOF, VB JACKI Escobedo on 11/17/17 Doing well. Rare CTX, denies LOF, VB JACKI Escobedo on 11/17/17 no vb lof good fm no regular ctx. having some cold symptoms Ainsley Peters MD on 10/21/17 Visit Date: 11/17/17 Doing well. Rare CTX, denies LOF, VB JACKI Escobedo on 11/17/17 no vb lof good fm no regular ctx. having some cold symptoms Ainsley Peters MD on 10/21/17 Visit Date: 10/21/17 no vb lof good fm no regular ctx. having some cold symptoms Ainsley Peters MD on 10/21/17 Doing well. Reviewed BS and improving. Sees MFM every 4 weeks. YVES Escobedo on 10/08/17 Visit Date: 10/08/17 Doing well. Reviewed BS and improving. Sees MFM every 4 weeks. YVES Escobedo on 10/08/17 ACOG First Trimester First Trimester: Third Trimester Third Trimester: Trial of Labor after Counseling, Labor support person(s) (yuval ), Pain Management Plans (Epidural planned), Movement Monitoring, Labor Signs, Signs and Symptoms of Preeclampsia, Infant Feeding Yes and Family Medical Leave or Disability Forms Diagnostics Diagnostics Labs Hct 32.5 % (37-47) L 11/17/17 Hgb 11.1 g/dl (12.0-15.0) L 11/17/17 Details: HIV: Urine Culture: Sequential Screen: NIPT Screen: ROS Const Denies fever(s) GI Denies abdominal pain, Reports as per HPI Denies vaginal discharge, Denies abnormal vaginal bleeding, Reports as per HPI Exam Const General: healthy appearing, comfortable, no acute distress GI Inspection: normal to inspection Palpation: soft, nontender Office Procedures OB NST Non-Stress Test Indications for Monitoring: Positive diabetes and hypertention Heart Rate Baseline: 140 Heart Rate Variability: moderate Movement: Present Heart Rate Accelerations: Present Decelerations: Absent Contractions: Present (irritability) Impression: Yes Reactive Non-Stress Test Category 1 Results [id number] Office Urine Glucose Negative Last Edit by Glo Restrepo on 01/07/18 09:57 Office Urine Protein Positive Last Edit by Glo Restrepo on 01/07/18 09:57 Plus 2 protein Assessment AND Plan Problems 1. Chronic hypertension affecting O10.919 procardia 60mg XL 2. History of delivery, currently O34.219 considering - 63.7 percent chance of success, info given and consent signed plans TL 3. UTI (urinary tract infection) in in first trimester O23.41 several utis- recommend daily keflex to prevent 4. History of pre-eclampsia in prior , currently in second trimester O09.292 severe preeclampsia delivered at 28 weeks. negative APL workup, on baby ASA 5. Diabetes mellitus affecting in second trimester O24.912 Class B follows with [facility] MFM, testing 2 times a week starting at 32 weeks, growth assessment every 4 weeks, co-manage visit in [address] Manuel Dutton. 6. Supervision of high risk in second trimester O PRR DAVID 02/18/18 adeline Whelan Nikita 7. Polyhydramnios in third trimester complication, single or unspecified fetus O40.3XX0 Seen at follow up growth US with MFM on 12/02/17 8. 34 weeks gestation of Z3A.34 Plan Orders placed: preeclampsia handout given, check bloodwork and increase procardia, check urine protein creatinine ratio movement and labor precautions reviewed. ACOG trimester education reviewed and updated. see problem list details for updated plan management information. [place] appropriate handout given. Orders Orders: Medications New: Coding Level of Care Code Off vis,est,level 4 Diagnoses Chronic hypertension affecting O10.919 History of delivery, currently O34.219 UTI (urinary tract infection) in in first trimester O23.41 History of pre-eclampsia in prior , currently in second trimester O09.292 Diabetes mellitus affecting in second trimester O24.912 Supervision of high risk in second trimester O09 Trimester: second trimester Polyhydramnios in third trimester complication, single or unspecified fetus O40.3XX0 Fetus number: single or unspecified fetus Trimester: third trimester 34 weeks gestation of Z3A.34 Additional Codes Non-Stress Test (76999) 01/07/18 1038 <Electronically signed by Ainsley Peters MD> Date [facility] Signature: Date (if applicable) CC: PROGRESS NOTE Observed: 01/03/2018 Status: COMPLETED Source: [place] 10:00 AM [facility] DIABETES AND PROGRAM COMANAGEMENT Referring/Requesting Provider: Ainsley Peters MD PCP: [facility], MD Daiana CHIEF COMPLAINT: T2DM HISTORY OF PRESENT ILLNESS: Radha is a 27 y.o. at 33w3d with T2DM on NPH 34/12 and Log 09/10/32. Blood glucose record was reviewed. BG are at goal. No s/s of supreimposed preeclampsia. OB HISTORY: OB History Para Term AB Living 2 1 1 1 SAB TAB Ectopic Multiple Live Births 1 # Outcome Date GA Lbr Mustapha/2nd Weight Sex Delivery Anes PTL Lv 2 Current 1 07/08/11 28w0d 0.992 kg F CS-Unspec EPI N FELICIANO Complications: H/O pre-eclampsia in prior , currently PAST MEDICAL HISTORY: Past Medical History: Diagnosis Date Anxiety Depression Diabetes mellitus, type 2 Just was diagnosed in March 2017 H/O pre-eclampsia in prior , currently Hypertension Seasonal allergies PAST SURGICAL HISTORY: Past Surgical History: Procedure Laterality Date SECTION MEDS: Current Outpatient Prescriptions on File Prior to Visit Medication Sig Dispense Refill Polyethylene Glycol 3350 (MIRALAX PO) Take by mouth Takes one dose every other day as needed for constipation docusate sodium (COLACE) 100 MG CAPS capsule Take 100 mg by mouth daily May increase to twice a day as needed insulin aspart (NOVOLOG) 100 UNIT/ML SOLN injection Inject 50-70 units subcutaneously daily as directed (Patient taking differently: Inject 50-70 units subcutaneously daily as directed. Current dose 09/10/32) 30 mL 5 NIFEdipine (PROCARDIA XL) 30 MG CR tablet Take 1 Tab (30 mg) by mouth daily 30 Tab 5 acetaminophen (TYLENOL) 325 MG tablet Take 650 mg by mouth every 4 hours as needed for Pain albuterol 108 (90 Base) MCG/ACT inhaler Inhale 2 Puffs into the lungs every 4 hours as needed Prenat w/o E-JnGmOa-MCX-FA-DHA (PNV OB+DHA PO) Take 1 mg by mouth daily insulin isophane (HUMULIN N; NOVOLIN N) 100 UNIT/ML SUSP injection Inject 50-70 units daily subcutaneously as directed (Patient taking differently: Inject 50-70 units daily subcutaneously as directed; taking 34 units in AM, 12 units @ HS) 30 mL 5 Insulin Syringe-Needle U-100 (INSULIN SYRINGE 1CC/31GX5/16) 31G X 5/16 1 ML MISC Use to inject insulin 3-4 times daily as directed 100 Each 5 Glucose (B-D GLUCOSE) 5 g CHEW Take 3 tablets (15 gm) as needed for blood sugar less than 60. Recheck blood sugar 15 min earlier and repeat if blood sugar remains low 100 Each 1 glucagon (GLUCAGON EMERGENCY) 1 MG Inject 1 mL (1 mg) into the muscle as needed (blood sugar less than 50 not responsive to glucos tabs) 1 Kit 1 aspirin 81 MG TABS Take 81 mg by mouth No current facility-administered medications on file prior to visit. ALLERGY: No Known Allergies PHYSICAL EXAM: VITAL SIGNS: BP 136/84 Wt (!) 117.9 kg (260 lb) LMP 05/14/2017 IMAGING: Polyhydramnios. BPP 8/8. IMPRESSION: Radha is a 27 y.o. at 33w3d with Active Non-Hospital Problems Diagnosis Date Noted Bacteriuria during in third trimester 01/03/2018 Had hematuria and urine culture 3/5 + E Coli. Rx from Dr. 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 Recommend using alternate pharmacy. Importance of treatment reviewed. No s/s of acute cystitis or pyelonephritis. Polyhydramnios, antepartum complication 12/03/2017 Supervision of other high risk , antepartum 11/15/2017 PLAN OF CARE (No Peters) MD/OB APPOINTMENTS How often should patient be evaluated? Comanage q 1-2 weeks pending glucose control Work restrictions: none EVALUATION surveillance: Twice a week starting at 32 weeks (Mondays with MFM in [place]; NST's with Dr. Peters) Ultrasound: Monthly growth ultrasounds DELIVERY PLAN Hospital: [facility] TOLAC vs Repeat 37-39 weeks GBS culture: Contraception: Follow up in 2 weeks for BPP and co-management Hypertension during 09/20/2017 No s/sx of preeclampsia Continue Nifedipine XL 30 mg daily Daily low dose aspirin Depression 08/26/2017 Mood stable on no medication. Anxiety 08/26/2017 Mood stable. Type 2 diabetes mellitus affecting , antepartum 08/09/2017 Continue insulin dosing to NPH 34/12 and Log 09/10/32. Continue a baby Aspirin daily Continue checking fasting and 1 hour post prandial glucose levels with a goal of fasting <90 and 1 hour post prandial <140 mg/dL S/p nutrition counseling She will call or EBIQUOUShart message her BG log at least weekly. Metformin prior to , plan to restart . Type 2 diabetes mellitus with insulin therapy 08/09/2017 Previous delivery, antepartum condition or complication 08/09/2017 Mode of delivery per primary Ob. Patient is considering a TOLAC. Recommend delivery if the EFW >4500 gms H/O pre-eclampsia in prior , currently 08/09/2017 Continue baby aspirin daily Signs/symptoms of preeclampsia reviewed Obesity affecting , antepartum 08/09/2017 Recommend 11-20 lb weight gain in Recommend 30 minutes of moderate activity 5 times a week if the patient is ruled out for labor Follow up weekly for comanagement and BPP until delivery. The total patient time of the visit was 15 minutes, of which was greater than 50% of the time was spent counseling and coordinating care. ANCHOR TACK PULLER OFFICE VISIT Observed: 12/30/2017 Status: F Source: ISACC REPORT 11:09 AM [facility] [address] [place] [address]. [address] [place] [address] OFFICE VISIT Date of Service: 12/30/17 MR#: [id number] Acct: [id number] Name: RADHA CASTRO Rep #: [id number] : 1990 Provider: Ainsley Peters MD Age/Sex: 27/F [place] [facility] [place]: Signed Intake Vital Signs12/30/17 Height 5 ft 9 in 12/30/17 Weight: 257 lb 8 oz 12/30/17 Body Mass Index (BMI) 38.0 12/30/17 Blood Pressure 138/79 Intake Visit Reasons: NST Chief Complaint: est ob, NST Hand Wrapper Operator Required: No Is patient in pain?: No Allergies No Known Allergies Allergy (Verified 12/30/17 10:27) Medications blood sugar diagnostic strips See Dose Instructions .ROUTE .MEDSUPPLY #20 ea 10/06/17 [History Confirmed 12/30/17] vitamin,calcium,ceeeplan-nakp-ghwcb acid tablet 1 tab PO QDAY 10/06/17 [History Confirmed 12/30/17] Aspirin [Aspirin, Baby] 81 mg PO DAILY@0800 11/15/17 [History Confirmed 12/30/17] Insulin NPH Human Isophane [Humulin N Vial] 34 units SQ BREAKFAST 11/15/17 [History Confirmed 12/30/17] Insulin NPH Human Isophane [Humulin N] 12 units SC PCHS 11/15/17 [History Confirmed 12/30/17] Insulin Regular, Human [Novolin R] 12 unit SQ LUNCH 11/15/17 [History Confirmed 12/30/17] Insulin Regular, Human [Novolin R] 16 unit SQ BREAKFAST 11/15/17 [History Confirmed 12/30/17] Insulin Regular, Human [Novolin R] 24 unit SC DINNER 11/15/17 [History Confirmed 12/30/17] Nifedipine [Procardia Xl] 30 mg PO DAILY 11/15/17 [History Confirmed 12/30/17] Nitrofurantoin Macrocrystal [Macrodantin] 100 mg PO Q6H 11/15/17 [History Confirmed 12/30/17] cephalexin 500 mg capsule 500 mg PO QDAY #30 cap 11/15/17 [Rx Confirmed 12/30/17] Last Menstral Period: 05/14/17 Zika: Zika virus screening: Negative : No PFSH PFSH Medical History Diabetes (Acute) Preeclampsia (Acute) Hypertension (Chronic) Surgical History delivery delivered (Acute) Family History Grandmother Diabetes Hypertension Breast cancer Cancer Lung Grandfather Diabetes Father Diabetes Social History Smoking Status: Never smoker alcohol intake: never substance use type: does not use what type of physical activity do you participate in: none seatbelt use: always do you feel safe at home: Yes additional social history: Spouse Yuval Pregancy History 2 Elective abortions Hx Para 1 Spontaneous abortions Past Pregnancies Del. DateName GA/Weeks Outcome Route Bth WeighInfant GeLabor LgtAnesthesiDel LocatProvider FOB t n h a n HPI NST: Details: RADHA CASTRO is a 27 year old who presents for routine OB visit. OB Visit DAVID Calculator Estimated Delivery Date 02/18/18 Based on LMP (certain) 05/14/17 Current WG 32w 6d Number 1 Expected Delivery Route/Plan TOLAC if spontaneous labor, otherwise RLTCS and BTL @ 37 weeks per MFM title 19 signed 12/30/17 Specific Issue/Plans flu vaccine given tdap given Initial Weight: Not Recorded Date Weight BP Urine PFHR FuHt Pres MCTX DilatioFetal SVisit NProvideComment rot ov n t ote r s EGA Ef Gluco faced se 10/08/1244 lb 136/80 [id number] Active Doing wMH 7 e ell. Re 21 viewed w 0d Negati BS and ve improvi ng. See s MFM e very 4 weeks. Visit Notes Visit Date: 12/30/17 weekly nst, title 19 signed plan tl, picking up antibiotic Ainsley Peters MD on 12/30/17 no vb lof good fm no regular ctx Ainsley Peters MD on 12/01/17 no vb lof good fm no regular ctx Ainsley Peters MD on 12/01/17 Visit Date: 12/22/17 no vb lof good fm no regular ctx Ainsley Peters MD on 12/01/17 no vb lof good fm no regular ctx Ainsley Peters MD on 12/01/17 Visit Date: 12/01/17 no vb lof good fm no regular ctx Ainsley Peters MD on 12/01/17 vaginal discharge yellowish and increased UTI symptoms. hasn't started daily keflex yet. urine culture sent. no vb good fm no regular ctx. BS fairly controlled Ainsley Peters MD on 12/01/17 Doing well. Rare CTX, denies LOF, VB JACKI Escobedo on 11/17/17 Doing well. Rare CTX, denies LOF, VB JACKI Escobedo on 11/17/17 no vb lof good fm no regular ctx. having some cold symptoms Ainsley Peters MD on 10/21/17 Visit Date: 11/17/17 Doing well. Rare CTX, denies LOF, VB JACKI Escobedo on 11/17/17 no vb lof good fm no regular ctx. having some cold symptoms Ainsley Peters MD on 10/21/17 Visit Date: 10/21/17 no vb lof good fm no regular ctx. having some cold symptoms Ainsley Peters MD on 10/21/17 Doing well. Reviewed BS and improving. Sees MFM every 4 weeks. YVES Escobedo on 10/08/17 Visit Date: 10/08/17 Doing well. Reviewed BS and improving. Sees MFM every 4 weeks. YVES Escobedo on 10/08/17 ACOG First Trimester First Trimester: Discussed Diagnostics Diagnostics Labs Hct 32.5 % (37-47) L 11/17/17 Hgb 11.1 g/dl (12.0-15.0) L 11/17/17 Blood Type A POSITIVE 07/16/17 Antibody Screen NEGATIVE 07/16/17 Rubella IgG Antibody 74.2 IU/mL 07/16/17 RPR NONREACTIVE (NONREACTIVE) 07/16/17 Hep Bs Antigen Negative (Negative) 07/16/17 Chlam trachomat DNA PCR Negative (Negative) 07/16/17 N.gonorrhoeae DNA (PCR) Negative (Negative) 07/16/17 Miscellaneous Test 08/09/17 Details: HIV: Urine Culture: Sequential Screen: NIPT Screen: ROS Const Denies fever(s) GI Denies abdominal pain, Reports as per HPI Denies vaginal discharge, Denies abnormal vaginal bleeding, Reports as per HPI Exam Const General: healthy appearing, comfortable, no acute distress GI Inspection: normal to inspection Palpation: soft, nontender Office Procedures OB NST Non-Stress Test Indications for Monitoring: Positive diabetes Heart Rate Baseline: 140 Heart Rate Variability: moderate Movement: Present Heart Rate Accelerations: Present Decelerations: Absent Contractions: Absent Impression: Yes Reactive Non-Stress Test Category 1 Assessment AND Plan Problems 1. Polyhydramnios in third trimester complication, single or unspecified fetus O40.3XX0 Seen at follow up growth US with MFM on 12/02/17 2. Diabetes mellitus affecting in second trimester O24.912 Class B follows with [facility] MFM, testing 2 times a week starting at 32 weeks, growth assessment every 4 weeks, co-manage visit in [address] Manuel Dutton. 3. Supervision of high risk in second trimester O09. PRR DAVID 02/18/18 adeline MURILLO Cleopatra Nikita 4. History of pre-eclampsia in prior , currently in second trimester O09.292 severe preeclampsia delivered at 28 weeks. negative APL workup, on baby ASA 5. Anomaly of heart of fetus affecting , antepartum, single or unspecified fetus O35.8XX0 US with [facility] MFM- needs ductal arch reassessed. 6. History of delivery, currently O34.219 considering - 63.7 percent chance of success plans TL 7. Chronic hypertension affecting O10.919 procardia 8. UTI (urinary tract infection) in in first trimester O23.41 10/11 Rpt urine culture negative 9. 33 weeks gestation of Z3A.33 Plan Orders placed: nst today susanne counts labor precautions fu with mfm next wednesday, us next week for weekly nst ACOG trimester education reviewed and updated. see problem list details for updated plan management information. [place] appropriate handout given. Orders Orders: Coding Level of Care Code Off vis,est,level 3 Diagnoses Polyhydramnios in third trimester complication, single or unspecified fetus O40.3XX0 Fetus number: single or unspecified fetus Trimester: third trimester Diabetes mellitus affecting in second trimester O24.912 Supervision of high risk in second trimester O0992 Trimester: second trimester History of pre-eclampsia in prior , currently in second trimester O09.292 Anomaly of heart of fetus affecting , antepartum, single or unspecified fetus O35.8XX0 Fetus number: single or unspecified fetus History of delivery, currently O34.219 Chronic hypertension affecting O10.919 UTI (urinary tract infection) in in first trimester O23.41 33 weeks gestation of Z3A.33 Additional Codes Non-Stress Test (03905) 12/30/17 1109 <Electronically signed by Ainsley Peters MD> Date Ainsley Peters MD Cosigner Signature: Date (if applicable) CC: ANCHOR TACK PULLER OFFICE VISIT Observed: 12/28/2017 Status: F Source: [place] REPORT 6:15 AM [facility] [place] [address] [place] [address] OFFICE VISIT Date of Service: 12/22/17 MR#: [id number] Acct: [id number] Name: RADHA CASTRO Rep #: [id number] : 1990 Provider: Ainsley Peters MD Age/Sex: 27/F [place] [facility] [place] S[place] Intake Vital Signs12/22/17 Height 5 ft 9 in 12/22/17 Weight: 252 lb 12/22/17 Body Mass Index (BMI) 37.2 Intake Visit Reasons: (OB) Chief Complaint: est ob Hand Wrapper Operator Required: No Is patient in pain?: No Allergies No Known Allergies Allergy (Verified 12/22/17 09:33) Medications blood sugar diagnostic strips See Dose Instructions .ROUTE .MEDSUPPLY #20 ea 10/06/17 [History Confirmed 12/22/17] vitamin,calcium,kwcuprbd-sfjj-mgvyy acid tablet 1 tab PO QDAY 10/06/17 [History Confirmed 12/22/17] Aspirin [Aspirin, Baby] 81 mg PO DAILY@0800 11/15/17 [History Confirmed 12/22/17] Insulin NPH Human Isophane [Humulin N Vial] 34 units SQ BREAKFAST 11/15/17 [History Confirmed 12/22/17] Insulin NPH Human Isophane [Humulin N] 12 units SC PCHS 11/15/17 [History Confirmed 12/22/17] Insulin Regular, Human [Novolin R] 12 unit SQ LUNCH 11/15/17 [History Confirmed 12/22/17] Insulin Regular, Human [Novolin R] 16 unit SQ BREAKFAST 11/15/17 [History Confirmed 12/22/17] Insulin Regular, Human [Novolin R] 24 unit SC DINNER 11/15/17 [History Confirmed 12/22/17] Nifedipine [Procardia Xl] 30 mg PO DAILY 11/15/17 [History Confirmed 12/22/17] Nitrofurantoin Macrocrystal [Macrodantin] 100 mg PO Q6H 11/15/17 [History Confirmed 12/22/17] cephalexin 500 mg capsule 500 mg PO QDAY #30 cap 11/15/17 [Rx Confirmed 12/22/17] Last Menstral Period: 05/14/17 Zika: Zika virus screening: Negative : No PFSH PFSH Medical History Diabetes (Acute) Preeclampsia (Acute) Hypertension (Chronic) Surgical History delivery delivered (Acute) Family History Grandmother Diabetes Hypertension Breast cancer Cancer Lung Grandfather Diabetes Father Diabetes Social History Smoking Status: Never smoker alcohol intake: never substance use type: does not use what type of physical activity do you participate in: none seatbelt use: always do you feel safe at home: Yes additional social history: Spouse Yuval Pregancy History 2 Elective abortions Hx Para 1 Spontaneous abortions Past Pregnancies Del. DateName GA/Weeks Outcome Route Bth WeighInfant GeLabor LgtAnesthesiDel LocatProvider FOB t n h a n HPI (OB): Details: RADHA CASTRO is a 27 year old who presents for routine OB visit. urine 2 dip glucose negative protein postitive OB Visit DAVID Calculator Estimated Delivery Date 02/18/18 Based on LMP (certain) 05/14/17 Current WG 32w 4d Number 1 Expected Delivery Route/Plan TOLAC Specific Issue/Plans flu vaccine given tdap given Initial Weight: Not Recorded Date Weight BP Urine PFHR FuHt Pres MCTX DilatioFetal SVisit NProvideComment rot ov n t ote r s EGA Ef Gluco faced se 10/08/1244 lb 136/80 [id number] Active Doing wMH 7 e ell. Re 21 viewed w 0d Negati BS and ve improvi ng. See s MFM e very 4 weeks. Visit Notes Visit Date: 12/22/17 no vb lof good fm no regular ctx Ainsley Peters MD on 12/01/17 no vb lof good fm no regular ctx Ainsley Peters MD on 12/01/17 Visit Date: 12/01/17 no vb lof good fm no regular ctx Ainsley Peters MD on 12/01/17 vaginal discharge yellowish and increased UTI symptoms. hasn't started daily keflex yet. urine culture sent. no vb good fm no regular ctx. BS fairly controlled Ainsley Peters MD on 12/01/17 Doing well. Rare CTX, denies LOF, VB Patricia Patel NP- Dinah on 11/17/17 Doing well. Rare CTX, denies LOF, VB Patricia Patel NP- C on 11/17/17 no vb lof good fm no regular ctx. having some cold symptoms Ainsley Peters MD on 10/21/17 Visit Date: 11/17/17 Doing well. Rare CTX, denies LOF, VB Patricia Patel NP- C on 11/17/17 no vb lof good fm no regular ctx. having some cold symptoms Ainsley Peters MD on 10/21/17 Visit Date: 10/21/17 no vb lof good fm no regular ctx. having some cold symptoms Ainsley Peters MD on 10/21/17 Doing well. Reviewed BS and improving. Sees MFM every 4 weeks. YVES Escobedo on 10/08/17 Visit Date: 10/08/17 Doing well. Reviewed BS and improving. Sees MFM every 4 weeks. YVES Escobedo on 10/08/17 Diagnostics Diagnostics Labs Hct 32.5 % (37-47) L 01/24/18 Hgb 11.1 g/dl (12.0-15.0) L 11/17/17 Miscellaneous Test 08/09/17 Details: HIV: Urine Culture: Sequential Screen: NIPT Screen: ROS Const Denies fever(s) GI Denies abdominal pain, Reports as per HPI Denies vaginal discharge, Denies abnormal vaginal bleeding, Reports as per HPI Exam Const General: healthy appearing, comfortable, no acute distress GI Inspection: normal to inspection Palpation: soft, nontender Assessment AND Plan Problems 1. Polyhydramnios in third trimester complication, single or unspecified fetus O40.3XX0 Seen at follow up growth US with MFM on 12/02/17 2. Diabetes mellitus affecting in second trimester O24.912 Class B follows with [facility] MFM, testing 2 times a week starting at 32 weeks, growth assessment every 4 weeks, co-manage visit in [address] [facility] [address]. Manuel Dutton. 3. History of pre-eclampsia in prior , currently in second trimester O09.292 severe preeclampsia delivered at 28 weeks. negative APL workup, on baby ASA 4. Supervision of high risk in second trimester O09.92 PRR DAVID 02/18/18 adeline MURILLO Cleopatra Nikita 5. 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 6. History of delivery, currently O34.219 considering - 63.7 percent chance of success plans TL 7. UTI (urinary tract infection) in in first trimester O23.41 10/11 Rpt urine culture negative 8. Chronic hypertension affecting O10.919 procardia 9. 31 weeks gestation of Z3A.31 Plan Orders placed: start weekly nsts next week movement and labor precautions reviewed. ACOG trimester education reviewed and updated. see problem list details for updated plan management information. [place] appropriate handout given. Orders Orders: Coding Level of Care Code Off vis,est,level 3 Diagnoses Polyhydramnios in third trimester complication, single or unspecified fetus O40.3XX0 Fetus number: single or unspecified fetus Trimester: third trimester Diabetes mellitus affecting in second trimester O24.912 History of pre-eclampsia in prior , currently in second trimester O09.292 Supervision of high risk in second trimester O09.92 Anomaly of heart of fetus affecting , antepartum, single or unspecified fetus O35.8XX0 History of delivery, currently O34.219 UTI (urinary tract infection) in in first trimester O23.41 Chronic hypertension affecting O10.919 31 weeks gestation of Z3A.31 12/28/17 0615 <Electronically signed by Ainsley Peters MD> Date Ainsley Peters MD Cosigner Signature: Date (if applicable) CC: URINALYSIS, COMPLETE Collected: 12/27/2017 Status: F Source: [facility] 10:58 AM [facility] REPOSITORY Order Comment: How was Urine Obtained? CLEAN CATCH TYPE CODE TESTS RESULT OUT OF RANGE REFERENCE UNITS LAB L400.3000 Yellow COLOR Normal Yellow LAB L400.3050 Clear Normal CLARITY Cloudy LAB L400.3200 Normal mg/dl Normal GLUCOSE, UR Normal LAB L400.3300 Negative mg/dL Normal BILIRUBIN URINE Negative LAB L400.3400 Negative mg/dl High 5 KETONE UR LAB L400.3465 1.002-1.030 Normal SP.GR. DIPSTX 1.020 LAB L400.3550 5.0 - 8.0 pH UR Normal 5.0 LAB L400.3600 Negative mg/dl High PROT 30 DIPSTX LAB L400.3700 Normal mg/dl Normal UROBILI Normal LAB L400.3750 Negative Normal NITRITE UR Negative LAB L400.3780 Negative /ul High OCCULT BLOOD-UR 250 LAB L400.3800 Negative /ul High LEUK ESTERASE 500 LAB L400.4050 0-5 /hpf WBC Normal 10-25 SEEN LAB L400.4100 0-5 /hpf Normal RBC-UA 10-25 SEEN LAB L400.4150 5-10 /hpf SQUAM Normal EPI 5-10 SEEN LAB L400.4300 None Seen /hpf 3+ Normal BACTERIA LAB L400.4350 <or=2+ /hpf 0 Normal MUCUS, URINE SEEN Performed By: #### L400.0001 #### [facility] [address] [place], [address] Observed: 12/27/2017 Status: F Source: [facility] CULTURE, URINE 10:58 AM [facility] REPOSITORY Urine Culture ORGANISM 1: Presumptive E. coli [place] Count >100,000 Presumptive E. coli: REACTION Amoxacillin/Clavulanic Acid $ 4 S Ampicillin $ >=32 R Ampicillin/Sulbactam $ >=32 R Cefazolin $ <=4 S Cefepime $ <=1 S Ceftriaxone $ <=1 S Ciprofloxacin $ 0.5 S ESBL - Ertapenim $$$ <=0.5 S Gentamicin $ <=1 S Imipenem *NF <=0.25 S Levofloxacin $ <=0.12 S Nitrofurantoin $ 32 S Piperacillin/Tazobactam $$ <=4 S Tobramycin $ <=1 S Trimethoprim/Sulfametho $ <=20 S (NF) indicates non-formulary drug at [facility]. Approval by Infectious Disease Specialist required before non-formulary drugs may be ordered and/or dispensed. Performed By: #### M100.0650 #### [facility] [address] [place], [place], [id number] PROGRESS NOTE Observed: 12/27/2017 Status: COMPLETED Source: [place] 10:00 AM [facility] REPOSITORY Comanage Pregestational Diabetes Mellitus Radha Castro is a 27 y/o at 32w3d seen for comanagement of Pregestational Diabetes Mellitus and Chronic Hypertension. She denies any obstetric complaints today and reports normal movement. Radha does complain of increased urinary frequency and states she has been treated on at least two occasions for UTIs during . She denies gross hematuria or dysuria. Her blood glucose record was reviewed and she has frequent hyperglycemia after dinner. Radha's current insulin regimen is NPH 34/12 and Log 09/10/28. History of Presenting Problem: She is accompanied by her spouse. Radha denies any cramping, contractions, vaginal bleeding, unusual or increase in vaginal discharge, signs and symptoms of pre-eclampsia, or leaking of any fluid. Patient with positive movement. Pregestational Diabetes Radha presents today for her comanage visit. She has type 2 diabetes. The disease course is stable. Her symptom course is compliant. Pertinent negative hyper/hypoglycemia symptoms include none. Hyper/Hypoglycemia complications do not include none. She is compliant with treatment all of the time. Blood glucose readings reviewed and appear controlled. Gestational Diabetes Radha presents today for her comanage visit. She has type 2 diabetes. Pertinent negative hyper/hypoglycemia symptoms include none. Hyper/Hypoglycemia complications do not include none. Current treatments include diet and insulin injections. She is compliant with treatment all of the time. Blood glucose readings reviewed and appear controlled. Blood glucose ranges are > 20% of values above (dinner). Past Medical History: Past Medical History: Diagnosis Date Anxiety Depression Diabetes mellitus, type 2 Just was diagnosed in March 2017 H/O pre-eclampsia in prior , currently Hypertension Seasonal allergies Past Surgical History: Procedure Laterality Date SECTION Medications: Outpatient Encounter Prescriptions as of 12/27/2017 Medication Sig Dispense Refill Polyethylene Glycol 3350 (MIRALAX PO) Take by mouth Takes one dose every other day as needed for constipation docusate sodium (COLACE) 100 MG CAPS capsule Take 100 mg by mouth daily May increase to twice a day as needed insulin aspart (NOVOLOG) 100 UNIT/ML SOLN injection Inject 50-70 units subcutaneously daily as directed (Patient taking differently: Inject 50-70 units subcutaneously daily as directed. Current dose 09/10/32) 30 mL 5 NIFEdipine (PROCARDIA XL) 30 MG CR tablet Take 1 Tab (30 mg) by mouth daily 30 Tab 5 acetaminophen (TYLENOL) 325 MG tablet Take 650 mg by mouth every 4 hours as needed for Pain albuterol 108 (90 Base) MCG/ACT inhaler Inhale 2 Puffs into the lungs every 4 hours as needed Prenat w/o G-PrWaGv-YIS-FA-DHA (PNV OB+DHA PO) Take 1 mg by mouth daily insulin isophane (HUMULIN N; NOVOLIN N) 100 UNIT/ML SUSP injection Inject 50-70 units daily subcutaneously as directed (Patient taking differently: Inject 50-70 units daily subcutaneously as directed; taking 34 units in AM, 12 units @ HS) 30 mL 5 Insulin Syringe-Needle U-100 (INSULIN SYRINGE 1CC/31GX5/16) 31G X 5/16 1 ML MISC Use to inject insulin 3-4 times daily as directed 100 Each 5 Glucose (B-D GLUCOSE) 5 g CHEW Take 3 tablets (15 gm) as needed for blood sugar less than 60. Recheck blood sugar 15 min earlier and repeat if blood sugar remains low 100 Each 1 glucagon (GLUCAGON EMERGENCY) 1 MG Inject 1 mL (1 mg) into the muscle as needed (blood sugar less than 50 not responsive to glucos tabs) 1 Kit 1 aspirin 81 MG TABS Take 81 mg by mouth cephALEXin (KEFLEX) 500 MG capsule Take 500 mg by mouth every 8 hours Taking 3 times a day for urinary tract infection Allergies: No Known Allergies Family Medical History: Family History Problem Relation Age of Onset No known problems Mother High Blood Pressure Maternal Grandmother Cancer Maternal Grandmother Breast Heart Disease Maternal Grandmother during open heart surgery Diabetes Mellitus I Maternal Grandmother Diabetes Mellitus II Maternal Grandmother Diabetes Mellitus II Paternal Grandfather High Blood Pressure Father No known problems Sister Seizures Maternal Grandfather Cancer Paternal Grandmother Lung- as a result Social History: Social History Social History Marital status: Spouse name: N/A Number of children: N/A Years of education: N/A Social History Main Topics Smoking status: Never Smoker Smokeless tobacco: Never Used Alcohol use No Drug use: No Sexual activity: Not Currently Partners: Male Other Topics Concern None Social History Narrative None Physical Exam: Vitals Extended BP: 140/80, 130/80 Weight - Scale: (!) 111.1 kg (245 lb) Heart Rate: Positive Number of Fetuses: 1 Heart Rate: present on ultrasound today Movement: Present Vaginal Bleeding: Absent Cramps / Contractions: Absent Mucous Discharge: Present (pt states her Md in [place] aware;she took a culture of this and sent it) US: Estimated weight is at the 95th percentile for gestational age with the abdominal circumference measuring greater than the 99th percentile. Polyhydramnios is again noted with a MVP of 8.7 cm. Biophysical profile is 8. Impression/Plan: 27 y.o. at 32w3d with Active Non-Hospital Problems Diagnosis Date Noted Hematuria 12/27/2017 UA and culture 12/27/17 Polyhydramnios, antepartum complication 12/03/2017 Supervision of other high risk , antepartum 11/15/2017 PLAN OF CARE (No Peters) MD/OB APPOINTMENTS How often should patient be evaluated? Comanage q 1-2 weeks pending glucose control Work restrictions: none EVALUATION surveillance: Twice a week starting at 32 weeks Ultrasound: Monthly growth ultrasounds DELIVERY PLAN Hospital: [facility] TOLAC vs Repeat 37-39 weeks GBS culture: Contraception: Follow up in 2 weeks for BPP and co-management Hypertension during 09/20/2017 No s/sx of preeclampsia Continue Nifedipine XL 30 mg daily Daily low dose aspirin Depression 08/26/2017 Mood stable on no medication. Anxiety 08/26/2017 Mood stable. Type 2 diabetes mellitus affecting , antepartum 08/09/2017 Type 2 diabetes mellitus with insulin therapy 08/09/2017 Previous delivery, antepartum condition or complication 08/09/2017 Mode of delivery per primary OB. Patient is considering a TOLAC. Recommend delivery if the EFW >4500 gms H/O pre-eclampsia in prior , currently 08/09/2017 Continue baby aspirin daily Signs/symptoms of preeclampsia reviewed Obesity affecting , antepartum 08/09/2017 Recommend 11-20 lb weight gain in Recommend 30 minutes of moderate activity 5 times a week if the patient is ruled out for labor The total patient time of the visit was 15 minutes, of which greater than 50% of the time was spent counseling and coordinating care. Manuel Dutton, PROGRESS NOTE Observed: 12/13/2017 Status: COMPLETED Source: [place] 10:30 AM [facility] REPOSITORY Comanage PregestationalDiabetes Mellitus Radha Castro is seen at 30w3d for comanagement of Pregestational Type 2 Diabetes Mellitus, obesity, h/o delivery, h/o iatrogenic delivery secondary to preeclampsia. She complains of continued vaginal pressure. Her blood glucose record was reviewed. Her insulin did not change. Current dose is NPH / and Log 09/10/26. History of Presenting Problem: HPI Past Medical History: Past Medical History: Diagnosis Date Anxiety Depression Diabetes mellitus, type 2 Just was diagnosed in March 2017 H/O pre-eclampsia in prior , currently Hypertension Seasonal allergies Past Surgical History: Procedure Laterality Date SECTION Medications: Outpatient Encounter Prescriptions as of 12/13/2017 Medication Sig Dispense Refill Polyethylene Glycol 3350 (MIRALAX PO) Take by mouth Takes one dose every other day as needed for constipation cephALEXin (KEFLEX) 500 MG capsule Take 500 mg by mouth every 8 hours Taking 3 times a day for urinary tract infection docusate sodium (COLACE) 100 MG CAPS capsule Take 100 mg by mouth daily May increase to twice a day as needed insulin aspart (NOVOLOG) 100 UNIT/ML SOLN injection Inject 50-70 units subcutaneously daily as directed (Patient taking differently: Inject 50-70 units subcutaneously daily as directed. Current dose 09/10/26) 30 mL 5 NIFEdipine (PROCARDIA XL) 30 MG CR tablet Take 1 Tab (30 mg) by mouth daily 30 Tab 5 acetaminophen (TYLENOL) 325 MG tablet Take 650 mg by mouth every 4 hours as needed for Pain albuterol 108 (90 Base) MCG/ACT inhaler Inhale 2 Puffs into the lungs every 4 hours as needed Prenat w/o U-AuAiZk-LCJ-FA-DHA (PNV OB+DHA PO) Take 1 mg by mouth daily insulin isophane (HUMULIN N; NOVOLIN N) 100 UNIT/ML SUSP injection Inject 50-70 units daily subcutaneously as directed (Patient taking differently: Inject 50-70 units daily subcutaneously as directed; taking 34 units in AM, 12 units @ HS) 30 mL 5 Insulin Syringe-Needle U-100 (INSULIN SYRINGE 1CC/31GX5/16) 31G X 5/16 1 ML MISC Use to inject insulin 3-4 times daily as directed 100 Each 5 Glucose (B-D GLUCOSE) 5 g CHEW Take 3 tablets (15 gm) as needed for blood sugar less than 60. Recheck blood sugar 15 min earlier and repeat if blood sugar remains low 100 Each 1 glucagon (GLUCAGON EMERGENCY) 1 MG Inject 1 mL (1 mg) into the muscle as needed (blood sugar less than 50 not responsive to glucos tabs) 1 Kit 1 aspirin 81 MG TABS Take 81 mg by mouth No facility-administered encounter medications on file as of 12/13/2017. Allergies: No Known Allergies Glucose Levels: Fastin-88 (0/12 over goal) 1hr post breakfast: 113-133 (0/11 over goal) 1hr post lunch: 119-137 (0/11 over goal) 1hr post dinner: 129-143 (3/11 over goal) Physical Exam: Vitals Extended BP: 116/80 Weight - Scale: (!) 111.7 kg (246 lb 3.2 oz) Abd: soft, NT/ND Ext: Nt, no edema Assessment and Plan: 27 y.o. at 30w3d with Active Non-Hospital Problems Diagnosis Date Noted Polyhydramnios, antepartum complication 12/03/2017 Supervision of other high risk , antepartum 11/15/2017 PLAN OF CARE MD/OB APPOINTMENTS How often should patient be evaluated? q 2 weeks from 32 to 36 weeks then weekly until delivery Work restrictions: none EVALUATION surveillance: Twice a week starting at 32 weeks Ultrasound: Monthly growth ultrasounds DELIVERY PLAN Hospital: [facility] Induction at 36-39 weeks GBS culture: Contraception: Follow up in 2 weeks for BPP and co-management Hypertension during 09/20/2017 No s/sx of preeclampsia Continue Nifedipine XL 30 mg daily Growth ultrasounds every 4 weeks Twice weekly testing starting at 32 weeks. Depression 08/26/2017 Mood stable on no medication. Anxiety 08/26/2017 Mood stable. Type 2 diabetes mellitus affecting , antepartum 08/09/2017 On Metformin prior to . Patient tolerating insulin well. BG at goal. Continue current insulin doses. She will call or Savorfull message her BG log at least weekly. Change insulin dosing to NPH /12 and Log 09/10/28. Continue a baby Aspirin daily Continue checking fasting and 1 hour post prandial glucose levels with a goal of fasting <90 and 1 hour post prandial <140 mg/dL s/p nutrition counseling Serial growth ultrasound every 4 weeks Testing 2 times a week starting at 32 weeks. Delivery at 36-39 weeks depending on glucose control. Recommend delivery if the EFW >4500 gms Type 2 diabetes mellitus with insulin therapy 08/09/2017 Previous delivery, antepartum condition or complication 08/09/2017 Mode of delivery per primary Ob. Patient is considering a TOLAC. Recommend delivery if the EFW >4500 gms H/O pre-eclampsia in prior , currently 08/09/2017 Continue baby aspirin daily Signs/symptoms of preeclampsia reviewed Obesity affecting , antepartum 08/09/2017 Recommend 11-20 lb weight gain in Recommend 30 minutes of moderate activity 5 times a week if the patient is ruled out for labor Sandy Montalvo MD PROGRESS NOTE Observed: 12/02/2017 Status: COMPLETED Source: [place] 11:00 AM [facility] REPOSITORY Comanage Pregestational Diabetes Mellitus Radha Castro is a 27 y/o at 28w6d for comanagement of Pregestational Diabetes Mellitus and Chronic Hypertension. She denies any obstetric complaints today and reports normal movement. Her blood glucose record was reviewed and she appears well controlled at this time. Radha's current insulin regimen is NPH 34/12 and Log 09/10/26 (increased yesterday). History of Presenting Problem: She is unaccompanied. Pregestational Diabetes Radha presents today for her comanage visit. She has type 2 diabetes. The disease course is stable. Her symptom course is compliant. Pertinent negative hyper/hypoglycemia symptoms include none. Hyper/Hypoglycemia complications do not include none. She is compliant with treatment all of the time. Blood glucose readings reviewed and appear controlled. Radha denies any cramping, contractions, vaginal bleeding, unusual or increase in vaginal discharge, signs and symptoms of pre-eclampsia, or leaking of any fluid. Patient with positive movement. Past Medical History: Past Medical History: Diagnosis Date Anxiety Depression Diabetes mellitus, type 2 Just was diagnosed in March 2017 H/O pre-eclampsia in prior , currently Hypertension Seasonal allergies Past Surgical History: Procedure Laterality Date SECTION Medications: Outpatient Encounter Prescriptions as of 12/02/2017 Medication Sig Dispense Refill Polyethylene Glycol 3350 (MIRALAX PO) Take by mouth Takes one dose every other day as needed for constipation cephALEXin (KEFLEX) 500 MG capsule Take 500 mg by mouth every 8 hours Taking 3 times a day for urinary tract infection docusate sodium (COLACE) 100 MG CAPS capsule Take 100 mg by mouth daily May increase to twice a day as needed insulin aspart (NOVOLOG) 100 UNIT/ML SOLN injection Inject 50-70 units subcutaneously daily as directed (Patient taking differently: Inject 50-70 units subcutaneously daily as directed. Current dose 09/10/26 ( 26 units of LOG with dinner updated as of yesterday, 12/01/17)) 30 mL 5 NIFEdipine (PROCARDIA XL) 30 MG CR tablet Take 1 Tab (30 mg) by mouth daily 30 Tab 5 acetaminophen (TYLENOL) 325 MG tablet Take 650 mg by mouth every 4 hours as needed for Pain Prenat w/o F-YiGiMo-TFB-FA-DHA (PNV OB+DHA PO) Take 1 mg by mouth daily insulin isophane (HUMULIN N; NOVOLIN N) 100 UNIT/ML SUSP injection Inject 50-70 units daily subcutaneously as directed (Patient taking differently: Inject 50-70 units daily subcutaneously as directed; taking 34 units in AM, 12 units @ HS) 30 mL 5 Insulin Syringe-Needle U-100 (INSULIN SYRINGE 1CC/31GX5/16) 31G X 5/16 1 ML MISC Use to inject insulin 3-4 times daily as directed 100 Each 5 Glucose (B-D GLUCOSE) 5 g CHEW Take 3 tablets (15 gm) as needed for blood sugar less than 60. Recheck blood sugar 15 min earlier and repeat if blood sugar remains low 100 Each 1 glucagon (GLUCAGON EMERGENCY) 1 MG Inject 1 mL (1 mg) into the muscle as needed (blood sugar less than 50 not responsive to glucos tabs) 1 Kit 1 aspirin 81 MG TABS Take 81 mg by mouth albuterol 108 (90 Base) MCG/ACT inhaler Inhale 2 Puffs into the lungs every 4 hours as needed No facility-administered encounter medications on file as of 12/02/2017. Allergies: No Known Allergies Family Medical History: Family History Problem Relation Age of Onset No known problems Mother High Blood Pressure Maternal Grandmother Cancer Maternal Grandmother Breast Heart Disease Maternal Grandmother during open heart surgery Diabetes Mellitus I Maternal Grandmother Diabetes Mellitus II Maternal Grandmother Diabetes Mellitus II Paternal Grandfather High Blood Pressure Father No known problems Sister Seizures Maternal Grandfather Cancer Paternal Grandmother Lung- as a result Social History: Social History Social History Marital status: Spouse name: N/A Number of children: N/A Years of education: N/A Social History Main Topics Smoking status: Never Smoker Smokeless tobacco: Never Used Alcohol use No Drug use: No Sexual activity: Not Currently Partners: Male Other Topics Concern None Social History Narrative None Physical Exam: Vitals Extended BP: 140/80, 130/80 Weight - Scale: (!) 111.1 kg (245 lb) Heart Rate: Positive Number of Fetuses: 1 Heart Rate: present on ultrasound today Movement: Present Vaginal Bleeding: Absent Cramps / Contractions: Absent Mucous Discharge: Present (pt states her Md in [place] aware;she took a culture of this and sent it) US: Estimated weight is appropriate for gestational age. The abdominal circumference measures greater than the 99th percentile. Polyhydramnios is noted with a MVP of 8.6 cm. Impression: 27 y/o at 28w6d with Patient Active Problem List Diagnosis Type 2 diabetes mellitus affecting , antepartum Type 2 diabetes mellitus with insulin therapy Previous delivery, antepartum condition or complication H/O pre-eclampsia in prior , currently Obesity affecting , antepartum Depression Anxiety Hypertension during Supervision of other high risk , antepartum Polyhydramnios, antepartum complication Follow up Plan: 1. No change to insulin regimen. NPH and Log 09/10/26. 2. Testing 2 times a week starting at 32 weeks. 3. Growth assessment every 4 weeks. 4. Comanage visit in 2 weeks. The total patient time of the visit was 15 minutes, of which greater than 50% of the time was spent counseling and coordinating care. Manuel Dutton DO Observed: 12/01/2017 Status: F Source: [facility] CULTURE, GENITAL 12:45 PM [facility] COMPREHENSIVE REPOSITORY Gram Stain Score = 4 Interpretation: 0-3 Normal, 4-6 Intermediate, 7-10 Positive BV Gram Stain 3+ Gram positive rods 3+ Gram variable kenny 3+ Epithelial cells No Gram negative diplococci Rare White Blood Cells Gent Cult Comp NEISSERIA GONORRHOEAE is NOT isolated. ORGANISM 1: Presumptive C albicans Amount Growth 2+ ORGANISM 2: Gram negative kenny Amount Growth 1+ ORGANISM 3: Gram negative kenny Amount Growth 1+ ORGANISM 4: Streptococcus group B Amount Growth 2+ Performed By: #### M100.1600 #### [facility] [address] [place], [place], [address] Observed: 12/01/2017 Status: F Source: [facility] CULTURE, URINE 12:45 PM [facility] REPOSITORY Urine Culture ORGANISM 1: Mixed Gram Pos AND Gram Neg Org [place] Count 1000-10,000 MIX CULTURE Mixed contaminants. Submit a new specimen if indicated. Performed By: #### M100.0650 #### [facility] [address] [place], [address] ANCHOR TACK PULLER OFFICE VISIT Observed: 12/01/2017 Status: F Source: [facility] REPORT 11:27 AM [facility] [address] [place] [address] OFFICE VISIT Date of Service: 12/01/17 MR#: [id number] Acct: [id number] Name: RADHA CASTRO Rep #: [id number] : 1990 Provider: Ainsley Peters MD Age/Sex: 27/F [place] [facility] [place] Signed Intake Intake Visit Reasons: (OB) Chief Complaint: est ob Hand Wrapper Operator Required: No Is patient in pain?: No Allergies No Known Allergies Allergy (Verified 11/17/17 09:31) Medications blood sugar diagnostic strips See Dose Instructions .ROUTE .MEDSUPPLY #20 ea 10/06/17 [History Confirmed 12/01/17] vitamin,calcium,ikojsbim-tmwt-gjikk acid tablet 1 tab PO QDAY 10/06/17 [History Confirmed 12/01/17] Aspirin [Aspirin, Baby] 81 mg PO DAILY@0800 11/15/17 [History Confirmed 12/01/17] Insulin NPH Human Isophane [Humulin N Vial] 34 units SQ BREAKFAST 11/15/17 [History Confirmed 12/01/17] Insulin NPH Human Isophane [Humulin N] 12 units SC PCHS 11/15/17 [History Confirmed 12/01/17] Insulin Regular, Human [Novolin R] 12 unit SQ LUNCH 11/15/17 [History Confirmed 12/01/17] Insulin Regular, Human [Novolin R] 16 unit SQ BREAKFAST 11/15/17 [History Confirmed 12/01/17] Insulin Regular, Human [Novolin R] 24 unit SC DINNER 11/15/17 [History Confirmed 12/01/17] Nifedipine [Procardia Xl] 30 mg PO DAILY 11/15/17 [History Confirmed 12/01/17] Nitrofurantoin Macrocrystal [Macrodantin] 100 mg PO Q6H 11/15/17 [History Confirmed 12/01/17] cephalexin 500 mg capsule 500 mg PO QDAY #30 cap 11/15/17 [Rx Confirmed 12/01/17] Last Menstral Period: 05/14/17 Zika: Zika virus screening: Negative : No PFSH PFSH Medical History Diabetes (Acute) Preeclampsia (Acute) Hypertension (Chronic) Surgical History delivery delivered (Acute) Family History Grandmother Diabetes Hypertension Breast cancer Cancer Lung Grandfather Diabetes Father Diabetes Social History Smoking Status: Never smoker alcohol intake: never substance use type: does not use what type of physical activity do you participate in: none seatbelt use: always do you feel safe at home: Yes additional social history: Spouse Yuval Pregancy History 2 Elective abortions Hx Para 1 Spontaneous abortions Past Pregnancies Del. DateName GA/Weeks Outcome Route Bth WeighInfant GeLabor LgtAnesthesiDel LocatProvider FOB t n h a n HPI (OB): Details: RADHA CASTRO is a 27 year old who presents for routine OB visit. OB Visit DAVID Calculator Estimated Delivery Date 02/18/18 Based on LMP (certain) 05/14/17 Current WG 28w 5d Number 1 Expected Delivery Route/Plan TOLAC Specific Issue/Plans flu vaccine given tdap given Initial Weight: Not Recorded Date Weight BP Urine PrFHR FuHt Pres MoCTX DilationFetal StVisit NoProviderComments E ot v te GA G Effac lucose ed Visit Notes Visit Date: 12/01/17 no vb lof good fm no regular ctx Ainsley Peters MD on 12/01/17 vaginal discharge yellowish and increased UTI symptoms. hasn't started daily keflex yet. urine culture sent. no vb good fm no regular ctx. BS fairly controlled Ainsley Peters MD on 12/01/17 Doing well. Rare CTX, denies LOF, VB Patricia Patel NP- C on 11/17/17 Doing well. Rare CTX, denies LOF, VB Patricia Patel NP- C on 11/17/17 no vb lof good fm no regular ctx. having some cold symptoms Ainsley Peters MD on 10/21/17 Visit Date: 11/17/17 Doing well. Rare CTX, denies LOF, VB Patricia Patel NP- C on 11/17/17 no vb lof good fm no regular ctx. having some cold symptoms Ainsley Peters MD on 10/21/17 Visit Date: 10/21/17 no vb lof good fm no regular ctx. having some cold symptoms Ainsley Peters MD on 10/21/17 Doing well. Reviewed BS and improving. Sees MFM every 4 weeks. YVES Escobedo on 10/08/17 Visit Date: 10/08/17 Doing well. Reviewed BS and improving. Sees MFM every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 appearing, comfortable, no acute distress GI Inspection: normal to inspection Palpation: soft, nontender Assessment AND Plan Problems 1. 22 weeks gestation of Z3A.22 2. Chronic hypertension affecting O10.919 procardia 3. Diabetes mellitus affecting in second trimester O24.912 Class B follows with [facility] MFM, growth US every 4 weeks starting at 24 weeks and twice weekly testing at 32 weeks. 4. History of pre-eclampsia in prior , currently in second trimester O09.292 severe preeclampsia delivered at 28 weeks. negative APL workup, on baby ASA 5. Supervision of high risk , unspecified, unspecified trimester O09.90 DAVID 02/18/18 adeline Whelan Nikita 6. History of delivery, currently O34.219 considering - 63.7 percent chance of success plans TL 7. Supervision of high risk in second trimester O09.92; O09.92 DAVID 02/18/18 adeline Whelan Nikita Plan Orders placed: fu with mfm nov 01 safe meds in list given ACOG trimester education reviewed and updated. see problem list details for updated plan management information. GA appropriate handout given. Orders Orders: OB Visit DAVID Calculator Estimated Delivery Date 02/18/18 Based on LMP (certain) 05/14/17 Current WG 22w 6d Number 1 Expected Delivery Route/Plan TOLAC Specific Issue/Plans HIV needs done with 28 wk CBC/ordered flu vaccine needs given Initial Weight: Not Recorded Date Weight BP Urine PFHR FuHt Pres MCTX DilatioFetal SVisit NProvideComment rot ov n t ote r s EGA Ef Gluco faced se 10/08/1244 lb 136/80 Emmafli670 Active Doing wMH 7 e ell. Re 21 viewed w 0d Negati BS and ve improvi ng. See s MFM e very 4 weeks. Visit Notes Visit Date: 10/21/17 no vb lof good fm no regular ctx. having some cold symptoms Ainsley Peters MD on 10/21/17 Doing well. Reviewed BS and improving. Sees MFM every 4 weeks. YVES Escobedo on 10/08/17 Visit Date: 10/08/17 Doing well. Reviewed BS and improving. Sees MFM every 4 weeks. YVES Escobedo on 10/08/17 10/21/17 0920 <Electronically signed by Ainsley Peters MD> Date Ainsley Peters MD Cosigner Signature: Date (if applicable) CC: ALLERGIES ALLERGIES DATE TYPE / CODE NAME / CODE REACTION SEVERITY SOURCE 09/20/2018 Drug No Known Unknown [facility] Allergy/511196706(S Allergies/F0019 [facility] NOMED CT) 73242(RXNORM) Hospital Repository Drug NO KNOWN [place] Class/253097751(SNO ALLERGIES [facility]) [place] Repository Miscellaneous NO KNOWN [place] Allergy/334812231(S ALLERGIES [facility] NOMED [facility] Hospital Repository ENCOUNTERS ENCOUNTERS ADMIT/DISCHARGE ACCOUNT ADMITTING ENCOUNTER LOCATION SOURCE NUMBER CLASS 09/20/2018/09/20/20 [id number] Emergency [address] ing:ED Repository 05/22/2018/05/22/20 [id number] Emergency [address] ing:ED Repository 02/28/2018/02/29/20 [id number] Ambulatory [address] Repository 02/28/2018/03/01/20 [id number] Ambulatory [address] Repository 02/24/2018/02/25/20 [id number] Ambulatory BMSBuilding:B [facility] 18 [facility] Repository 02/08/2018/02/09/20 [id number] Ambulatory [address] Repository 02/08/2018/02/10/20 [id number] Ambulatory [address] Repository 02/04/2018/02/08/20 [id number] Ambulatory [address] Repository 01/17/2018/01/18/20 [id number] Ambulatory BMSBuilding:B [place]ts 18 [facility] Repository 01/13/2018 [id number] Ambulatory BMSBuilding:B [place]acc MS.[facility] Repository 01/09/2018/01/12/20 [id number] Jerrell, Inpatient Letts Letts Ken Schmitz [facility] ing:WPRoom: Repository [id number]: 1 01/09/2018 [id number] Jerrell, Ambulatory BMSBuilding:Corey Schmitz MS.CF.[facility] Repository 01/09/2018 [id number] Jerrell, Ambulatory BMSBuilding:Corey Schmitz MS.CF.[facility] Repository 01/09/2018 [id number] Ambulatory BMSBuilding:Corey Dexter MS.CF.[facility] Repository 01/07/2018 [id number] Ambulatory [facility] ing:LABSPEC Repository 01/07/2018 [id number] Ambulatory [facility] ing:LAB Repository 01/07/2018/01/08/20 [id number] Ambulatory BMSBuilding:B Letts 18 [facility] Repository 01/03/2018 [id number] Ambulatory Building:[facility] Repository 01/03/2018 [id number] Ambulatory Building:[facility] Repository 12/30/2017/12/31/19 [id number] Ambulatory BMSBuilding:B Letts 18 [facility] Repository 12/27/2017 [id number] Ambulatory [facility] ing:LAB Repository 12/27/2017/12/28/19 [id number] Ambulatory Building:[address] Repository 12/27/2017/12/28/19 [id number] Ambulatory Building:[address] Repository 12/22/2017/12/22/19 [id number] Ambulatory BMSBuilding:B [place] 18 [facility] Repository 12/15/2017 [id number] Ambulatory BMSBuilding:B [place]acc MS[facility] Repository 12/13/2017/12/13/19 [id number] Ambulatory Building:[address] Repository 12/02/2017/12/02/19 [id number] Ambulatory Building:[address] Repository 12/02/2017/12/02/19 [id number] Ambulatory Building:[address] Repository 12/01/2017 [id number] Ambulatory [facility] Hospital ing:LABSPEC Repository 12/01/2017/12/01/19 [id number] Ambulatory BMSBuilding:B Letts 18 [facility] Repository 11/21/2017 [id number] Ambulatory BMSBuilding:B Isacc MS.CF.[facility] Repository 11/17/2017 [id number] Ambulatory [facility] Hospital ing:LAB Repository 11/17/2017/11/17/19 [id number] Ambulatory BMSBuilding:B [place] 18 [facility] Repository 11/15/2017/11/15/19 [id number] Ambulatory [address] [facility] ing:WPOUTRoom Repository : WP013 11/15/2017 [id number] Ambulatory BMSBuilding:Corey Dexter MS.[facility] Repository 11/15/2017/11/15/19 [id number] Ambulatory Building:[facility] 18 [facility] Repository 11/01/2017/11/01/19 [id number] Ambulatory Building:[facility] 18 [facility] Repository 11/01/2017/11/01/19 [id number] Ambulatory Building:[facility] 18 [facility] Repository 10/21/2017/10/21/20 [id number] Ambulatory BMSBuilding:Corey Dexter 17 [facility] Repository PAYERS PAYERS ENCOUNTER GUARANTOR PAYER SUBSCRIBER SOURCE 09/20/2018 RADHA N Primary RADHA N Letts [id number] Insurance:CARESOURCEP TOWNSENDDOB: Community [facility] Number: [id number] [place], [place] [id number] Repository 430[address]Xyq: (330) Date:2018-09-20P O [phone] () [address]ATTN: [place] [address]OY: 09/20/2018 Secondary NOT GIVENUNK [facility] Insurance:SELF PAY [facility] Number: Effective Repository Date:2018-09-20 05/22/2018 RADHA N Primary NOT GIVENUNK Letts [id number] [address] Insurance:SELF PAY [place] Number: Effective Repository [phone]: ([phone]) Date:2018-05-22 [phone] () 02/24/2018 RADHA N Primary RADHA N Letts [id number] W Insurance:CARESOURCEP [facility] Number: [id number] Hills, [place] [id number] Repository 83094Kua: (330) Date:2018-02-18P O [phone] () [address]ATTN: [place] [address]VS: 02/24/2018 Secondary NOT GIVENUNK [facility] Insurance:SELF PAY [facility] Number: Effective Repository Date:2018-02-24 01/17/2018 RADHA N Primary RADHA N Letts [id number] W Insurance:CARESOURCEP [facility]: [facility] Number: [id number] Hills, [place] [id number] Repository 148[address]Hnn: (330) Date:2018-01-14P O [phone] () [address]ATTN: [place] [address]GG: 01/17/2018 Secondary NOT GIVENUNK Letts Insurance:SELF PAY [facility] Number: Effective Repository Date:2018-01-17 01/13/2018 RADHA N Primary RADHA N Letts [id number] W Insurance:CARESOURCEP SEMINOLEDOB: [facility] Number: [id number] Hills, [place] [id number] Repository [address]Kam: ([phone]) Date:2018-01-07P O [phone] () [address]ATTN: [place] [address]JH: 01/13/2018 Secondary NOT GIVENUNK Letts Insurance:SELF PAY [facility] Number: Effective Repository Date:2018-01-07 01/09/2018 RADHA N Primary RADHA N Letts [id number] W Insurance:CARESOURCEP SEMINOLEDOB: [facility] Number: [id number] Hills, [place] [id number] Repository [address]2764Qev: (330) Date:2018-01-08P O [phone] () [address]ATTN: [place] [address]II: 01/09/2018 Secondary NOT GIVENUNK Letts Insurance:SELF PAY [facility] Number: Effective Repository Date:2018-01-08 01/09/2018 RADHA N Primary RADHA N Letts [id number] W Insurance:CARESOURCEP [facility]: [facility] Number: [id number] Hills, [place] [id number] Repository 93222Zne: (330) Date:2018-01-08P O [phone] (HP) [address]ATTN: [place] [address]IK: 01/09/2018 Secondary NOT GIVENUNK [facility] Insurance:SELF PAY [facility] Number: Effective Repository Date:2018-01-09 01/09/2018 RADHA N Primary RADHA N Letts [id number] W Insurance:CARESOURCEP TOWNSENDDOB: Community [facility] Number: [id number] Hills, [place] [id number] Repository [address]Mqs: (330) Date:2018-01-08 O [phone] () [address]ATTN: [place] [address]EC: 01/09/2018 Secondary NOT GIVENUNK [facility] Insurance:SELF PAY [facility] Number: Effective Repository Date:2018-01-09 01/09/2018 RADHA N Primary RADHA N Letts [id number] W Insurance:CARESOURCEP [facility]: [facility] Number: [id number] Hills, [place] [id number] Repository [address]Dki: ([phone]) Date:2018-01-08 O [phone] () [address]ATTN: [place] [address]PT: 01/09/2018 Secondary NOT GIVENUNK Letts Insurance:SELF PAY [facility] Number: Effective Repository Date:2018-01-09 01/07/2018 RADHA N Primary RADHA N Letts [id number] W Insurance:CARESOURCEP TOWNSENDDOB: [facility] Number: [id number] Hills, [place] [id number] Repository 116[address]Fmc: (330) Date:2018-01-07P O [phone] (HP) [address]ATTN: CLAIMS [facility] [place] [address]PY: 01/07/2018 Secondary NOT GIVENUNK [facility] Insurance:SELF PAY [facility] Number: Effective Repository Date:2018-01-07 01/07/2018 RADHA N Primary RADHA N Letts [id number] W Insurance:CARESOURCEP [place]DOB: Community LIBERTY [facility] Number: [id number] Hills, [place] [id number] Repository 497[address]Voc: [phone]) Date:2018-01-07P O [phone] () [address]ATTN: [place] [address]UD: 01/07/2018 Secondary NOT GIVENUNK [facility] Insurance:SELF PAY [facility] Number: Effective Repository Date:2018-01-07 01/07/2018 RADHA N Primary RADHA N Isacc [id number] W Insurance:CARESOURCEP [facility] Number: [id number] Hills, [place] [id number] Repository [address]Cnm: ([phone]) Date:2017-12-22P O [phone] () [address]ATTN: [place] [address]ED: 01/07/2018 Secondary NOT GIVENUNK Letts Insurance:SELF PAY [facility] Number: Effective Repository Date:2017-12-22 01/03/2018 RADHA Primary RADHA [facility] Insurance:CARESOURCEP [facility] Hospital olicy Number: [id number] Repository WEST [id number] 84 [facility], Date: [facility] [address]Lal: [phone] () 01/03/2018 RADHA Primary RADHA [facility]: [facility] olicy Number: [id number] Repository WEST [id number] 84 [facility], Date: [facility] [address]Skt: [phone] (HP) 12/30/2017 RADHA N Primary RADHA N Isacc [id number] W Insurance:CARESOURCEP [place]OWNSENDDOB: Community [facility] Number: [id number] Hills, [place] [id number] Repository [address]Alb: (330) Date:2017-12-27 O [phone] () [address]ATTN: [place] [address]PS: 12/30/2017 Secondary NOT GIVENUNK Letts Insurance:SELF PAY [facility] Number: Effective Repository Date:2017-12-27 12/27/2017 RADHA N Primary RADHA N [place]acc [id number] W Insurance:CARESOURCEP SEMINOLEDOB: [facility] Number: [id number] Hills, [place] [id number] Repository [address]Pit: (330) Date:2017-12-27 O [phone] () [address]ATTN: [place] [address]TL: 12/27/2017 Secondary NOT GIVENUNK [facility] Insurance:SELF PAY [facility] Number: Effective Repository Date:2017-12-27 12/27/2017 RADHA Primary RADHA [facility]: Insurance:[facility]: Hospital olicy Number: [id number] Repository WEST [id number] 84 [facility], Date: [facility] [address]Nua: [phone] (HP) 12/27/2017 RADHA Primary [facility] Insurance:CARESOURCEP [facility] Hospital olicy Number: [id number] Repository WEST [id number] [address] [facility], Date: [facility] [address]Iuf: [phone] (HP) 12/22/2017 RADHA N Primary RADHA N [place] [id number] W Insurance:CARESOURCEP [facility]: [facility] Number: [id number] Hills, [place] [id number] Repository [address]Lco: (275) Date:2017-12-14P O [phone] () [address]ATTN: [place] [address]CT: 12/22/2017 Secondary NOT GIVENUNK [place] Insurance:SELF PAY [facility] Number: Effective Repository Date:2017-12-14 12/15/2017 RADHA N Primary RADHA N [place] [id number] W Insurance:CARESOURCEP [facility]: [facility] Number: [id number] Hills, [place] [id number] Repository [address]Qln: (690) Date:2017-11-17P O [phone] () [address]ATTN: [place] [address]ZZ: 12/15/2017 Secondary NOT GIVENUNK Letts Insurance:SELF PAY [facility] Number: Effective Repository Date:2017-11-17 12/13/2017 RADHA Primary RADHA [facility]: Insurance:[facility]CM[facility]CY[facility]: [facility] olicy Number: [id number] Repository WEST [id number] 84 [facility], Date: [facility] [address]Nxs: [phone] (HP) 12/02/2017 RADHA Primary RADHA [facility] Insurance:[facility]OURCSELECT [facility]: [facility] olicy Number: [id number] Repository WEST [id number] 84 [facility], Date: [facility] [address]Llr: [phone] (HP) 12/02/2017 RADHA Primary RAD[facility] [facility]: Insurance:CARESOURCEP [facility]: [facility] Number: [id number] Repository [place] [id number] [address] [place] [address], Date: [facility] [address]Lon: [phone] (HP) 12/01/2017 RADHA N Primary RADHA N Letts [id number] W Insurance:CARESOURCEP SEMINOLEDOB: [facility] Number: [id number] Hills, [place] [id number] Repository [address]Eno: (330) Date:2017-12-01P O [phone] (HP) [address]ATTN: [place] [address]NC: 12/01/2017 Secondary NOT GIVENUNK Letts Insurance:SELF PAY [facility] Number: Effective Repository Date:2017-12-01 12/01/2017 RADHA N Primary RADHA N Letts [id number] W Insurance:CARESOURCEP [facility]: [facility] Number: [id number] Hills, [place] [id number] Repository [address]Iuh: (330) Date:2017-11-17P O [phone] (HP) [address]ATTN: [place] [address]IV: 12/01/2017 Secondary NOT GIVENUNK Letts Insurance:SELF PAY [facility] Number: Effective Repository Date:2017-11-17 11/21/2017 RADHA N Primary RADHA N Isacc [id number] Insurance[facility]CAR[facility]OURCEP [facility] Number: [id number], [place] [id number] Repository [address]Ega: (330) Date:2017-11-15P O [phone] (HP) [address]ATTN: [place] [address]BU: 11/21/2017 Secondary NOT GIVENUNK Isacc Insurance:SELF PAY [facility] Number: Effective Repository Date:2017-11-21 11/17/2017 RADHA N Primary RADHA N Isacc [id number] Insurance:CARESOURCEP [place]DOB: Community [facility] Number: [id number] [place], [place] [id number] Repository [address]Yvs: (330) Date:2017-11-17P O [phone] () [address]ATTN: [place] [address]ER: 11/17/2017 Secondary NOT GIVENUNK Letts Insurance:SELF PAY [facility] Number: Effective Repository Date:2017-11-17 11/17/2017 RADHA N Primary RADHA N Letts [id number] Insurance:CARESOURCEP [facility] [address] [facility] Number: [id number] Hills, [place] [id number] Repository [address]Ylk: (330) Date:2017-10-21P O [phone] () [address]ATTN: [place] [address]NF: 11/17/2017 Secondary NOT GIVENUNK Isacc Insurance:SELF PAY [facility] Number: Effective Repository Date:2017-10-21 11/15/2017 RADHA N Primary RADHA N Isacc [id number] Insurance:CARESOURCEP [facility] [facility] Number: [id number] Hills, [place] [id number] Repository [address]Rcf: (330) Date:2017-11-15P O [phone] () [address]ATTN: [place] [address]HC: 11/15/2017 Secondary NOT GIVENUNK Letts Insurance:SELF PAY [facility] Number: Effective Repository Date:2017-11-15 11/15/2017 RADHA N Primary RADHA N Isacc [id number] Insurance:CARESOURCEP [place]DOB: [facility] Number: [id number] [place], [place] [id number] Repository [address]Zuz: ([phone]) Date:2017-11-15P O [phone] () [address]ATTN: [place] [address]IL: 11/15/2017 Secondary NOT GIVENUNK Isacc Insurance:SELF PAY [facility] Number: Effective Repository Date:2017-11-15 11/15/2017 RADHA [facility]CARESOURCEP [facility] olicy Number: [id number] Repository WEST [id number] 84 [facility], Date: [facility] [address]Oqk: [phone] (HP) 11/01/2017 RADHA Primary RADHA [facility]: Insurance:[facility] olicy Number: [id number] Repository WEST [id number] 84 [facility], Date: [facility] [address]Obd: [phone] (HP) 11/01/2017 RADHA Primary RADHA [facility]: [facility] Hospital olicy Number: [id number] Repository WEST [id number] [address] [facility], Date: [facility] [address]Rkk: [phone] (HP) 10/21/2017 RADHA N Primary RADHA N Isacc [id number] Insurance:CARESOURCEP [facility] Number: [id number] Hills, [place] [id number] Repository [address]Oxu: ([phone]) Date:2017-10-11P O [phone] () [address]ATTN: [place] [address]PI: 10/21/2017 Secondary NOT GIVENUNK Isacc Insurance:SELF PAY [facility]: Effective Repository Date:2017-10-11
== END 2018-09-20 22:12 | disposition home or self-care (01) ==
PROVIDERS: Emergency Provider Emergency Medicine
DX: S30.0XXA Contusion of lower back and pelvis, initial encounter (principal); Y04.2XXA Assault by strike against or bumped into by another person, initial encounter; Y93.9 Activity, unspecified; Y92.9 Unspecified place or not applicable; I10 Essential (primary) hypertension
CPT/HCPCS: 99282

== ENCOUNTER → 2019-11-06 07:54 | Outpatient (CLI) | payer MEDICAID, SELFPAY ==
--- NOTE | 2019-11-06 08:30 | PET_ITS ---
EXAMINATION: FDG PET CT INDICATIONS: A 29-year-old female with reported history of pulmonary nodularity. COMPARISON EXAMINATION: CT of the chest report dated 10/10/19. INDEX LESION SIZE SUV INTERPRETATION Left upper hemithorax pulmonary parenchyma-left upper lobe 1.2 Quantitative criteria for viable neoplasm are not fulfilled, sequential radiologic investigation recommended TECHNIQUE: Following the intravenous administration of 17.9 mCi of F-18 deoxyglucose via the left antecubital fossa, multiplanar image acquisitions of the neck, chest, abdomen and pelvis to level of mid thigh, obtained at one hour post radiopharmaceutical administration contemporaneously interpreted with the current CT of the neck, chest, abdomen and pelvis to level of mid thigh, dated 11/06/[address] of the chest report dated 10/10/19 reveal: SERUM GLUCOSE LEVEL: 79 mg/dl. HEIGHT: 69 inches. WEIGHT: 240 lbs. FINDINGS: 1. Subtle increased glucose metabolism is defined in the left mid anterior lung-left upper lobe to correspond to an approximately 3.4 cm cystic mass on review of CT of the chest dated 11/06/19. The calculated maximum standard uptake value is 1.2. Quantitative criteria for viable neoplasm are not fulfilled. 2. Normal physiologic distribution of the radiopharmaceutical is apparent in the hepatic (3.1) and splenic parenchyma, both renal units, bladder and visualized intestinal tract. There is uniform distribution of the radiopharmaceutical concentration defined in the visualized cerebellar hemispheres and cerebral cortical structures.? Diffuse intestinal tract activity is noted throughout all four quadrants of the abdominal-pelvic retroperitoneum, mesentery consistent with normal physiologic distribution of the radiopharmaceutical. A large photopenic abnormality is noted in the right upper abdomen corresponding to a partially-calcified cyst involving the superior pole of the right kidney. Both kidneys demonstrate prominent collecting system activity at the level of the renal pelvis and calices. Pertinent CT findings are as follows. CHEST: Multiple mediastinal and bilateral axillary soft tissue densities are non-glucose avid. A cystic density defined in the left upper lung demonstrates minimal non-quantitatively significant increased FDG uptake, as previously described. ABDOMEN AND PELVIS: Cyst formation is demonstrated involving the superior pole of the right kidney with partial calcification demonstrating a maximal axial diameter of 11.1 cm (transverse). There is fatty metamorphosis involving the hepatic parenchyma. Bilateral inguinal soft tissue densities with fatty hilus formation are ametabolic. SKELETAL: Degenerative changes defined in the cervical, thoracic and lumbar spine demonstrate no evidence for glucose hypermetabolism. PET/PET/CT Tumor Base -Thigh Init IMPRESSION: 1. NEGATIVE EXAMINATION. There is no definitive quantitative scintigraphic evidence of viable neoplasm. 2. Increased radiopharmaceutical concentration observed in the left upper hemithorax pulmonary parenchyma, left upper lobe does not fulfill quantitative criteria for viable neoplasm. (Dunne et al, Annals of Internal Medicine, 138:724, 2003). 3. Metabolic and/or anatomic stability may be ensured in the left hemithorax pulmonary parenchymal abnormality with repeat FDG PET study and/or CT of the thorax in three-six months. (Xiu, Journal of Nuclear Medicine 45:88, P2004. Sanya, Seminars in Thoracic and Cardiovascular Surgery 14:292, 2002). Electronic Signature José Miguel Graham D.O. Electronically Signed: José Miguel Graham DO at 23:46 EST Tel , Service support ,
== END ==
PROVIDERS: Referring Provider Internal Medicine Pulmonary Disease; Visit Provider Internal Medicine Pulmonary Disease
DX: R91.8 Other nonspecific abnormal finding of lung field (principal)
CPT/HCPCS: 78815; A9552

== ENCOUNTER → 2020-11-05 | Outpatient (CLI) | payer MEDICAID, SELFPAY ==
[2020-11-05 13:20] VITALS: BMI 36.3
== END | disposition home or self-care (01) ==
LOC: LABSPEC 15:09
PROVIDERS: Visit Provider Obstetrics & Gynecology
DX: L02.214 Cutaneous abscess of groin (principal)
CPT/HCPCS: 87070; 87205

== ENCOUNTER → 2021-03-10 | Outpatient (CLI) | payer MEDICAID, SELFPAY ==
[2021-03-10 15:34] VITALS: BMI 35.7
== END | disposition home or self-care (01) ==
LOC: LABSPEC 16:46
PROVIDERS: Referring Provider Obstetrics & Gynecology; Visit Provider Obstetrics & Gynecology
DX: L02.214 Cutaneous abscess of groin (principal)
CPT/HCPCS: 87070; 87205

== ENCOUNTER → 2021-03-11 15:07 | Outpatient (CLI) | payer MEDICAID, SELFPAY ==
[2021-03-03 14:05] VITALS: BMI 35.7
[2021-03-10 15:34] VITALS: BMI 35.7
--- NOTE | 2021-03-11 15:09 | US_ITS ---
ACR Level 3 findings have been noted. An addendum which confirms receipt of the report will follow. HISTORY: Abnormal uterine bleeding. Frequent and heavy menses. LMP 02/08/2021. 50 images. Most recent comparison study is a PET/CT from November 06, 2019 Findings: Endovaginal imaging only. The cervix is closed. In the anterior lower uterine segments [place] section scar is present. Uterus measures 9.1 x 4.8 x 6.9 cm. Myometrium other than the scar is homogeneous. The endometrial stripe is homogeneous and normal at 6 mm. Color Doppler imaging demonstrates myometrial flow. There are no large masses or fluid collections. The left ovary measures 5 x 3.6 x 4.2 cm. Within the left ovary is a 3.8 x 3.3 x 3.2 cm simple cyst. Power Doppler imaging fails to demonstrate flow to the parts of the left ovarian parenchyma that were demonstrated on the one slice. The right ovary is not demonstrated. US/Pelvic (Non ) IMPRESSION: Normal uterus with normal endometrial stripe and anterior lower uterine segment scar. 3.8 x 3.3 x 3.2 cm simple cyst within the left adnexa likely on the left ovary new since November 06, 2019 PET/CT. This may represent a follicle. In the setting of malignancy at this could BE malignant or neoplastic. Recommend follow-up imaging in 6-12 weeks to assess for growth or resolution. at 0651 Reported and signed by: Chip Kelly MD Electronically Signed: Chip Kelly MD at 6:50 EDT Tel , Service support ,
--- NOTE | 2021-03-11 15:09 | US_ITS ---
ACR Level 3 findings have been noted. An addendum which confirms receipt of the report will follow. HISTORY: Abnormal uterine bleeding. Frequent and heavy menses. LMP 02/08/2021. 50 images. Most recent comparison study is a PET/CT from November 06, 2019 Findings: Endovaginal imaging only. The cervix is closed. In the anterior lower uterine segments [place] section scar is present. Uterus measures 9.1 x 4.8 x 6.9 cm. Myometrium other than the scar is homogeneous. The endometrial stripe is homogeneous and normal at 6 mm. Color Doppler imaging demonstrates myometrial flow. There are no large masses or fluid collections. The left ovary measures 5 x 3.6 x 4.2 cm. Within the left ovary is a 3.8 x 3.3 x 3.2 cm simple cyst. Power Doppler imaging fails to demonstrate flow to the parts of the left ovarian parenchyma that were demonstrated on the one slice. The right ovary is not demonstrated. US/Transvaginal Non- IMPRESSION: Normal uterus with normal endometrial stripe and anterior lower uterine segment scar. 3.8 x 3.3 x 3.2 cm simple cyst within the left adnexa likely on the left ovary new since November 06, 2019 PET/CT. This may represent a follicle. In the setting of malignancy at this could BE malignant or neoplastic. Recommend follow-up imaging in 6-12 weeks to assess for growth or resolution. at 0651 Reported and signed by: Chip Kelly MD Electronically Signed: Chip Kelly MD at 6:50 EDT Tel , Service support ,
[2021-03-11 17:50] LABS: Follicle Stimulating Hormone 4.4 mIU/mL; Prolactin 23.7 ng/mL
[2021-03-11 17:52] LABS: Hemoglobin A1c 9.1 % (3.8-5.6)
[2021-03-17 07:40] LABS: Testosterone Free 1.9 pg/mL (0.0-4.2)
== END ==
PROVIDERS: Referring Provider Obstetrics & Gynecology; Visit Provider Obstetrics & Gynecology
DX: N93.9 Abnormal uterine and vaginal bleeding, unspecified (principal)
CPT/HCPCS: 36415; 76830; 76856; 83001; 83036; 84146; 84402; 84443

== ENCOUNTER 2021-12-16 11:29 | Outpatient (CLI) | payer MEDICAID, SELFPAY ==
--- NOTE | 2021-12-16 11:55 | RAD_ITS ---
STUDY: X-RAY - LUMBAR SPINE REASON FOR EXAM: Female, 31 years old. Low back pain, lumbar radiculopathy left TECHNIQUE: 3 view(s) of the lumbar spine were obtained. COMPARISON: None FINDINGS: Normal lumbar lordosis. There is no substantial scoliosis. There is a normal alignment of the vertebrae. Normal vertebral bodies and endplates. Normal disc space heights. The soft tissue structures are unremarkable. RAD/Lumbar Spine 2 or 3 Views IMPRESSION: Normal x-ray examination of the lumbar spine. Electronically Signed: Franklin Doran MD at 15:29 EST ,
[2021-12-16 12:27] LABS: Absolute Lymphocyte Count 2.62 X10^3/uL (0.83-4.51); Absolute Neutrophil Count 3.6 X10^3/uL (2.0-7.7); Basophil# 0.03 X10^3/uL; Basophil% 0.4 % (0-1); Eosinophil# 0.45 X10^3/uL; Eosinophils% 6.1 % (0-5); Hematocrit 40.3 % (37-47); Hemoglobin 13.7 g/dL (12.0-15.0); Lymphocyte # 2.62 X10^3/ul (0.83-4.51); Lymphocyte % 35.8 % (19-41); Mean Corpuscular Hgb 29.3 pg (27.0-32.0); Mean Corpuscular Volume 86.3 fL (81-99); Mean Platelet Vol. 12.2 fl (6.2-12.0); Monocyte# 0.57 X10^3/uL; Monocyte% 7.8 % (0-10); NRBC Flagged by Analyzer 0 % (0-5); Neutrophil # 3.64 X10^3/uL (2.7-7.7); Neutrophil % 49.8 % (47-70); Platelet Count 231 K/mm3 (150-450); RBC Distribution Width CV 13.1 % (11.6-14.6); RBC Distribution Width SD 40.7 fl (35.1-43.9); Red Blood Count 4.67 M/mm3 (4.2-5.4); White Blood Count 7.3 K/mm3 (4.4-11.0)
[2021-12-16 12:49] LABS: Vitamin D,25 Hydroxy 33.2 ng/mL
[2021-12-16 13:00] LABS: Hemoglobin A1c 6.3 % (3.8-5.6)
[2021-12-16 13:12] LABS: ALB/GLOB Ratio 0.8 RATIO (0.9-2.4); AST(SGOT) 29 U/L (15-37); Alanine Aminotransfer ALT/SGPT 44 U/L (13-56); Albumin, Serum 3.7 g/dL (3.2-5.0); Alkaline Phosphatase 38 U/L (45-117); Anion Gap 5 (5-15); BUN 10 mg/dL (7-18); BUN/Creat Ratio 17.5 RATIO (10-20); Calcium,Total 9.5 mg/dL (8.5-10.1); Chloride 105 mmol/L (98-107); Cholesterol 207 mg/dL (200); Creatinine, Serum 0.57 mg/dL (0.55-1.02); EST Glomerular Filtration Rate 130 mL/min (>60); Est Glom Filt Rate - Afr Amer 157 mL/min (>60); Globulin 4.4 g/dL (2.2-4.2); Glucose 109 mg/dL (74-106); High Density Lipoprotein 50 mg/dL; Potassium 4.1 mmol/L (3.5-5.1); Protein, Total 8.1 g/dL (6.4-8.2); Sodium Level 138 mmol/L (136-145); Thyroid Stim Hormone (TSH) 1.05 uIU/mL (0.358-3.74); Triglycerides 126 mg/dL; Very Low Density Lipoprotein 25 mg/dL (5-40)
== END 2021-12-16 23:59 | disposition home or self-care (01) ==
PROVIDERS: PCP Internal Medicine; Referring Provider Internal Medicine; Visit Provider Internal Medicine
DX: E11.9 Type 2 diabetes mellitus without complications (principal); M54.50 Low back pain, unspecified; M54.16 Radiculopathy, lumbar region; Z86.32 Personal history of gestational diabetes
CPT/HCPCS: 36415; 72100; 80053; 80061; 82306; 83036; 84443; 85025

== ENCOUNTER → 2022-03-11 | Outpatient (CLI) | payer MEDICAID, SELFPAY ==
--- NOTE | 2022-03-11 11:15 | US_ITS ---
STUDY: ULTRASOUND OF THE FEMALE PELVIS - COMPLETE REASON FOR EXAM: Female, 31 years old. AUB, IUD check LMP: 02/04/2022 TECHNIQUE: Transabdominal and Transvaginal TECHNICAL QUALITY: Adequate. COMPARISON: Comparison is made with prior study dated 03/11/2021. FINDINGS: The uterus is anteverted and is in a midline position. The uterus measures 9.1 cm x 7.1 cm x 5.5 cm. Normal uterine cervix. The endometrium measures 6 mm in thickness, and is hyperechoic. There is no demonstrated endometrial mass. There is no demonstrated myometrial mass. I.U.D. - The patient does have an I.U.D.. The IUD is within the lower uterine segment/cervix. The right ovary is visualized. The right ovary measures 3.2 cm x 2.1cm x 1.7 cm. There is no right ovarian cyst or ovarian mass. There is no visualized right adnexal mass or complex lesion. There is normal arterial and normal venous vascularity. The left ovary is visualized. The left ovary measures 2.7 cm x 2.4 cm x 2 cm. There is no left ovarian cyst or ovarian mass. There is no visualized left adnexal mass or complex lesion. There is normal arterial and normal venous vascularity. There is no fluid in the cul-de-sac. The pre void volume of the bladder was 153 ml. Polycystic ovary disease: No. US/Pelvic (Non ) IMPRESSION: The IUD is seen within the lower uterine segment/cervix. Electronically Signed: Ej Crawley MD at 14:35 EDT ,
--- NOTE | 2022-03-11 11:15 | US_ITS ---
STUDY: ULTRASOUND OF THE FEMALE PELVIS - COMPLETE REASON FOR EXAM: Female, 31 years old. AUB, IUD check LMP: 02/04/2022 TECHNIQUE: Transabdominal and Transvaginal TECHNICAL QUALITY: Adequate. COMPARISON: Comparison is made with prior study dated 03/11/2021. FINDINGS: The uterus is anteverted and is in a midline position. The uterus measures 9.1 cm x 7.1 cm x 5.5 cm. Normal uterine cervix. The endometrium measures 6 mm in thickness, and is hyperechoic. There is no demonstrated endometrial mass. There is no demonstrated myometrial mass. I.U.D. - The patient does have an I.U.D.. The IUD is within the lower uterine segment/cervix. The right ovary is visualized. The right ovary measures 3.2 cm x 2.1cm x 1.7 cm. There is no right ovarian cyst or ovarian mass. There is no visualized right adnexal mass or complex lesion. There is normal arterial and normal venous vascularity. The left ovary is visualized. The left ovary measures 2.7 cm x 2.4 cm x 2 cm. There is no left ovarian cyst or ovarian mass. There is no visualized left adnexal mass or complex lesion. There is normal arterial and normal venous vascularity. There is no fluid in the cul-de-sac. The pre void volume of the bladder was 153 ml. Polycystic ovary disease: No. US/Transvaginal Non- IMPRESSION: The IUD is seen within the lower uterine segment/cervix. Electronically Signed: Ej Crawley MD at 14:35 EDT ,
== END | disposition home or self-care (01) ==
LOC: US 11:14
PROVIDERS: PCP Internal Medicine; Referring Provider Nurse Practitioner Women's Health; Visit Provider Nurse Practitioner Women's Health
DX: N93.9 Abnormal uterine and vaginal bleeding, unspecified (principal); Z30.431 Encounter for routine checking of intrauterine contraceptive device
CPT/HCPCS: 76830; 76856

== ENCOUNTER → 2022-08-24 | Outpatient (CLI) | payer MEDICAID, SELFPAY ==
[2022-08-24 11:25] LABS: Absolute Neutrophil Count 4.5 X10^3/uL (2.0-7.7); Basophil# 0.04 X10^3/uL; Basophil% 0.5 % (0-1); Eosinophil# 0.72 X10^3/uL; Eosinophils% 8.5 % (0-5); Hematocrit 39.3 % (37-47); Hemoglobin 13.5 g/dL (12.0-15.0); Lymphocyte % 28.2 % (19-41); Mean Corp Hgb Conc 34.4 g/dL (32-36); Mean Corpuscular Hgb 30.3 pg (27.0-32.0); Mean Corpuscular Volume 88.1 fL (81-99); Mean Platelet Vol. 12.6 fl (6.2-12.0); Monocyte# 0.85 X10^3/uL; NRBC Flagged by Analyzer 0 % (0-5); Neutrophil # 4.47 X10^3/uL (2.7-7.7); Neutrophil % 52.3 % (47-70); Platelet Count 217 K/mm3 (150-450); RBC Distribution Width CV 12.9 % (11.6-14.6); RBC Distribution Width SD 41.5 fl (35.1-43.9); Red Blood Count 4.46 M/mm3 (4.2-5.4); White Blood Count 8.5 K/mm3 (4.4-11.0)
[2022-08-24 11:56] LABS: Insulin 24.7 mU/L (2.6-37.6)
[2022-08-24 12:09] LABS: ALB/GLOB Ratio 0.9 RATIO (0.9-2.4); AST(SGOT) 24 U/L (15-37); Alanine Aminotransfer ALT/SGPT 44 U/L (13-56); Albumin, Serum 3.8 g/dL (3.2-5.0); Alkaline Phosphatase 36 U/L (45-117); Anion Gap 6 (5-15); BUN 10 mg/dL (7-18); BUN/Creat Ratio 18.3 RATIO (10-20); Calcium,Total 9.6 mg/dL (8.5-10.1); Chloride 103 mmol/L (98-107); Cholesterol 204 mg/dL (200); Creatinine, Serum 0.55 mg/dL (0.55-1.02); EST Glomerular Filtration Rate 136 mL/min (>60); Est Glom Filt Rate - Afr Amer 165 mL/min (>60); Globulin 4.3 g/dL (2.2-4.2); Glucose 170 mg/dL (74-106); High Density Lipoprotein 45 mg/dL; Potassium 4.1 mmol/L (3.5-5.1); Protein, Total 8.1 g/dL (6.4-8.2); Sodium Level 139 mmol/L (136-145); Thyroid Stim Hormone (TSH) 1.01 uIU/mL (0.358-3.74); Triglycerides 110 mg/dL; Very Low Density Lipoprotein 22 mg/dL (5-40)
== END | disposition home or self-care (01) ==
LOC: LAB 09:53
PROVIDERS: PCP Internal Medicine; Referring Provider Internal Medicine; Visit Provider Internal Medicine
DX: E11.9 Type 2 diabetes mellitus without complications (principal); F32.9 Major depressive disorder, single episode, unspecified
CPT/HCPCS: 36415; 80053; 80061; 83525; 84443; 85025

== ENCOUNTER → 2022-10-13 | Outpatient (CLI) | payer MEDICAID, SELFPAY ==
[2022-10-13 14:40] LABS: Absolute Lymphocyte Count 2.84 X10^3/uL (0.83-4.51); Absolute Neutrophil Count 3.9 X10^3/uL (2.0-7.7); Basophil# 0.04 X10^3/uL; Basophil% 0.5 % (0-1); Eosinophil# 0.79 X10^3/uL; Eosinophils% 9.5 % (0-5); Hematocrit 39.2 % (37-47); Hemoglobin 12.7 g/dL (12.0-15.0); Lymphocyte # 2.84 X10^3/ul (0.83-4.51); Lymphocyte % 34.1 % (19-41); Mean Corp Hgb Conc 32.4 g/dL (32-36); Mean Corpuscular Hgb 29.3 pg (27.0-32.0); Mean Corpuscular Volume 90.3 fL (81-99); Monocyte# 0.73 X10^3/uL; Monocyte% 8.8 % (0-10); NRBC Flagged by Analyzer 0 % (0-5); Neutrophil # 3.91 X10^3/uL (2.7-7.7); Neutrophil % 46.7 % (47-70); Platelet Count 257 K/mm3 (150-450); RBC Distribution Width CV 12.7 % (11.6-14.6); Red Blood Count 4.34 M/mm3 (4.2-5.4); White Blood Count 8.3 K/mm3 (4.4-11.0)
== END | disposition home or self-care (01) ==
LOC: PAVLAB 14:18
PROVIDERS: PCP Internal Medicine; Referring Provider Nurse Practitioner Women's Health; Visit Provider Nurse Practitioner Women's Health
DX: N92.1 Excessive and frequent menstruation with irregular cycle (principal)
CPT/HCPCS: 36415; 85025

== ENCOUNTER → 2022-12-02 | Outpatient (CLI) | payer MEDICAID, SELFPAY ==
[2022-12-02 13:14] LABS: Hepatitis B Surface Antibody Non-Reactive; Rubella IgG Reactive (Nonreactive)
[2022-12-03 17:59] LABS: Mumps Antibody,IgG 31.7 AU/mL (Immune >10.9); V-Zoster IgG (Immunity) 1320 index (Immune >165)
== END | disposition home or self-care (01) ==
LOC: LAB 11:35
PROVIDERS: PCP Internal Medicine; Referring Provider Internal Medicine; Visit Provider Internal Medicine
DX: Z02.1 Encounter for pre-employment examination (principal)
CPT/HCPCS: 36415; 86706; 86735; 86762; 86765; 86787

== ENCOUNTER → 2023-02-12 | Outpatient (CLI) | payer MEDICAID, SELFPAY ==
[2023-02-16 05:07] LABS: Chlamydia By Nucleic Acid AMP Negative (Negative); Gonococcus By Nucleic Acid AMP Negative (Negative)
[2023-02-21 10:07] LABS: HPV APTIMA, High Risk Negative (Negative)
== END | disposition home or self-care (01) ==
LOC: LABSPEC 14:13
PROVIDERS: PCP Internal Medicine; Referring Provider Registered Nurse; Visit Provider Registered Nurse
DX: Z11.3 Encounter for screening for infections with a predominantly sexual mode of transmission (principal); Z12.4 Encounter for screening for malignant neoplasm of cervix
CPT/HCPCS: 87491; 87591; 87624; 88175; G0145

== ENCOUNTER → 2023-06-30 | Outpatient (CLI) | payer MEDICAID, SELFPAY ==
[2023-06-30 15:56] LABS: Absolute Lymphocyte Count 2.35 X10^3/uL (0.83-4.51); Absolute Neutrophil Count 4.2 X10^3/uL (2.0-7.7); Basophil# 0.04 X10^3/uL; Basophil% 0.5 % (0-1); Eosinophil# 0.44 X10^3/uL; Eosinophils% 5.8 % (0-5); Hematocrit 39.8 % (37-47); Hemoglobin 12.9 g/dL (12.0-15.0); Lymphocyte # 2.35 X10^3/ul (0.83-4.51); Lymphocyte % 31.1 % (19-41); Mean Corp Hgb Conc 32.4 g/dL (32-36); Mean Corpuscular Hgb 28.3 pg (27.0-32.0); Mean Corpuscular Volume 87.3 fL (81-99); Mean Platelet Vol. 12.7 fl (6.2-12.0); Monocyte# 0.52 X10^3/uL; Monocyte% 6.9 % (0-10); NRBC Flagged by Analyzer 0 % (0-5); Neutrophil # 4.18 X10^3/uL (2.7-7.7); Neutrophil % 55.4 % (47-70); Platelet Count 262 K/mm3 (150-450); RBC Distribution Width CV 13.1 % (11.6-14.6); RBC Distribution Width SD 41.4 fl (35.1-43.9); Red Blood Count 4.56 M/mm3 (4.2-5.4); White Blood Count 7.6 K/mm3 (4.4-11.0)
[2023-06-30 16:26] LABS: Vitamin B12 488 pg/mL (211-911); Vitamin D,25 Hydroxy 26.6 ng/mL
[2023-06-30 16:28] LABS: Hemoglobin A1c 6.6 % (3.8-5.6)
[2023-06-30 16:37] LABS: AST(SGOT) 31 U/L (15-37); Alanine Aminotransfer ALT/SGPT 53 U/L (13-56); Alkaline Phosphatase 40 U/L (45-117); Anion Gap 5 (5-15); BUN 11 mg/dL (7-18); BUN/Creat Ratio 19.2 RATIO (10-20); Calcium,Total 9.5 mg/dL (8.5-10.1); Chloride 105 mmol/L (98-107); Creatinine, Serum 0.57 mg/dL (0.55-1.02); EST Glomerular Filtration Rate 129 mL/min (>60); Est Glom Filt Rate - Afr Amer 156 mL/min (>60); Globulin 4.1 g/dL (2.2-4.2); Glucose 103 mg/dL (74-106); Magnesium 2.2 mg/dL (1.6-2.6); Potassium 3.7 mmol/L (3.5-5.1); Protein, Total 8.1 g/dL (6.4-8.2); Sodium Level 138 mmol/L (136-145)
== END | disposition home or self-care (01) ==
PROVIDERS: PCP Internal Medicine; Visit Provider Internal Medicine
DX: R20.0 Anesthesia of skin (principal); R20.2 Paresthesia of skin; E53.8 Deficiency of other specified B group vitamins; R73.9 Hyperglycemia, unspecified; E55.9 Vitamin D deficiency, unspecified
CPT/HCPCS: 36415; 80053; 82306; 82607; 83036; 83735; 84443; 85025

== ENCOUNTER → 2023-08-25 | Outpatient (CLI) | payer MEDICAID, SELFPAY ==
--- NOTE | 2023-08-25 15:17 | NEURO ---
NCS and/or EMG Patient Report Ordering Doctor: Phuong Shetty DATE OF SERVICE: 08/25/23 Radha presents for electrodiagnostic testing of the lower limbs. She reports numbness and tingling in the legs, worse on the left side. She reports a history of lower back pain. Electrodiagnostic findings: Peroneal motor nerve demonstrates normal distal latency, amplitude and conduction velocity bilaterally. Tibial motor response is within normal limits bilaterally. Normal peroneal and tibial F-waves. Sensory responses are normal. Needle EMG testing was performed in the lower limbs. All muscles tested showed no evidence of denervation with normal motor unit action potentials. Electrodiagnostic findings: This is a normal electrodiagnostic study of the lower limbs. There is no electrodiagnostic evidence for lumbosacral radiculopathy or peripheral neuropathy. Multi Select Codes Neurology Neurology Interp Codes: 89003-11 Musc test done w/n test comp (interp) (2) and 16170-29 Nrv cndj test 7-8 studies (interp)
== END | disposition home or self-care (01) ==
PROVIDERS: PCP Internal Medicine; Referring Provider Internal Medicine; Visit Provider Internal Medicine
DX: R20.0 Anesthesia of skin (principal); R20.2 Paresthesia of skin; M54.16 Radiculopathy, lumbar region
CPT/HCPCS: 95912; 95886; 95911

== ENCOUNTER → 2023-09-24 | Outpatient (CLI) | payer MEDICAID, SELFPAY ==
--- NOTE | 2023-09-24 08:33 | MRI_ITS ---
STUDY: MRI BRAIN WITH AND WITHOUT CONTRAST REASON FOR EXAM: Female, 32 years old. Numbness/tingling legs -- Normal EMG/NCS lower ext TECHNIQUE: Standardized multiplanar fat and water weighted pulse sequences were obtained. 20 mL of IV Clariscan was administered for the contrast portion of the examination. COMPARISON: None. FINDINGS: Normal size of the ventricles and extra-axial spaces for the patient''s age. Normal white matter tracts of the supratentorial brain. Normal bilateral basal ganglia. Normal thalami. There is no extra-axial fluid accumulation. Normal flow voids within the major intracranial circulation suggesting patency by spin echo criteria. Normal venous enhancement. There is no enhancing intra-axial or extra-axial abnormality. Normal sella turcica, pituitary gland, infundibular stalk, optic chiasm and hypothalamus. Normal tectal plate and pineal gland. Normal midbrain, giovani and medulla. Normal cerebellum. Normal basal cisterns. Normal bilateral temporal bones. Normal bilateral internal auditory canals. No demonstrated orbital abnormality, within the constraints of a routine brain study. Minimal mucosal thickening in the right maxillary sinus. Normal remaining paranasal sinuses. Normal calvarium and skull base. Normal visualized soft tissue structures. Normal visualized upper cervical spine. MRI/Brain W/WO Contrast IMPRESSION: Minimal mucosal thickening in the right maxillary sinus otherwise negative unenhanced and enhanced MRI of the brain. Electronically Signed: Richard Aviles MD at 10:49 EST ,
== END | disposition home or self-care (01) ==
LOC: MRI 08:30
PROVIDERS: PCP Internal Medicine; Referring Provider Internal Medicine; Visit Provider Internal Medicine
DX: R20.0 Anesthesia of skin (principal); R20.2 Paresthesia of skin
CPT/HCPCS: 70553; A9575

== ENCOUNTER → 2023-11-02 | Outpatient (CLI) | payer MEDICAID, SELFPAY | END | disposition home or self-care (01) | LOC: LABSPEC 14:39 | PROVIDERS: PCP Internal Medicine; Referring Provider Nurse Practitioner Women's Health; Visit Provider Nurse Practitioner Women's Health | DX: N89.8 Other specified noninflammatory disorders of vagina (principal) | CPT/HCPCS: 87070; 87205 ==

== ENCOUNTER → 2023-12-10 | Outpatient (CLI) | payer MEDICAID, SELFPAY ==
[2023-12-10 17:10] LABS: Absolute Lymphocyte Count 2.87 X10^3/uL (0.83-4.51); Absolute Neutrophil Count 4.2 X10^3/uL (2.0-7.7); Basophil# 0.03 X10^3/uL; Basophil% 0.4 % (0-1); Eosinophil# 0.39 X10^3/uL; Eosinophils% 4.7 % (0-5); Hematocrit 37.8 % (37-47); Hemoglobin 12.2 g/dL (12.0-15.0); Lymphocyte # 2.87 X10^3/ul (0.83-4.51); Lymphocyte % 34.7 % (19-41); Mean Corp Hgb Conc 32.3 g/dL (32-36); Mean Corpuscular Hgb 27.7 pg (27.0-32.0); Mean Corpuscular Volume 85.9 fL (81-99); Mean Platelet Vol. 12.4 fl (6.2-12.0); Monocyte# 0.76 X10^3/uL; Monocyte% 9.2 % (0-10); NRBC Flagged by Analyzer 0 % (0-5); Neutrophil % 50.6 % (47-70); Platelet Count 242 K/mm3 (150-450); RBC Distribution Width CV 13.4 % (11.6-14.6); RBC Distribution Width SD 41.7 fl (35.1-43.9); White Blood Count 8.3 K/mm3 (4.4-11.0)
[2023-12-10 17:33] LABS: Vitamin B12 414 pg/mL (211-911)
[2023-12-10 17:39] LABS: Ferritin 21 ng/mL (8-252); Thyroid Stim Hormone (TSH) 1.73 uIU/mL (0.358-3.74)
--- OUTSIDE RECORDS SUMMARY | 2023-12-10 17:48 | XMS RPT_ITS | CCD ---
Author Name Unknown Address [address] [place] [address] Organization [facility] Care Team Providers Care Buffing Wheel Former Automatic Name Role Phone Rosa LEANDRA, Alfonzo Lora Unavailable Unavailable Ainsley Calderon MD Unavailable [phone] [employer] Unavailable ABHIJEET ARELLANO Attending Unavailable PHYSICIAN, NONE Primary Care Unavailable PHYSICIAN, NOT RECORDED Primary Care Physician CLAUDIO Reeves Attending Unavailable CLAUDIO BARRERA Admitting Unavailable AA NO PCP, NO PCP Primary Care Unavailable REID HERNANDEZ Admitting Unavailabl e AA NO PCP, NO PCP Primary Care Unavailable REID HERNANDEZ Attending Unavailabl e NO PRIMARY CARE, Primary Care Unavailable Medications Current Medications Medication Drug Class(es) Dates Sig (Normalized) Sig (Original) Benadryl (1 source) Histamine-1 Receptor Antagonist Start: 06-21-2016 Benadryl PRN Nasal congestion Start Date: 06/21/16 Status: Ordered Claritin (1 source) Start: 06-21-2016 Claritin Dose : 10 mg =, PRN allergies Start Date: 06/21/16 Status: Ordered ondansetron 4 mg disintegrating oral tablet (5 sources) Serotonin-3 Receptor Antagonist Start: 05-22-2022 End: 05-25-2022 ondansetron 4 mg oral tablet, disintegrating Dose : 4 mg = 1 tab(s), Oral, q8h, PRN as needed for nausea/vomiting, X 3 day(s), # 8 tab(s), 0 Refill(s), 05/25/22 3:43:00 EDT Start Date: 05/22/22 Stop Date: 05/25/22 Status: Ordered Completed/Discontinued Medications Medication Drug Class(es) Dates Sig (Normalized) Sig (Original) amoxicillin 875 mg / clavulanate 125 mg oral tablet (4 sources) Penicillin-class Antibacterial Start: 08-27-2017 take 1 tablet by mouth twice daily AUGMENTIN 875-125 MG TABS One tablet by mouth twice daily AMOXICILLIN-POT CLAVULANATE [id number] Alfonzo Lee METEOROLOGIST [employer]IA[employer]-[facility] GLUCOSE BLOOD (12 sources) Start: 07-16-2017 End: 10-15-2025 FREESTYLE LITE TEST STRP Check blood glucose fasting and 2 hours post prandial and occ at bedtime GLUCOSE BLOOD [id number] Yasmine Martinez 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 Problems Active Problems Problem Classification Problem Date Documented Date Episodic/Chronic Contraceptive and procreative management (1 source) Presence of (intrauterine) contraceptive device; Translations: [PRESENCE IU CONTRACEPT DEVICE] Onset: 08-17-2022 Episodic Diabetes mellitus without complication (1 source) Type 2 diabetes mellitus without complications; Translations: [TYPE 2 DM WITHOUT COMPLICATIONS] Onset: 11-19-2021 Chronic Diabetes or abnormal glucose tolerance complicating ; childbirth; or the puerperium (11 sources) Unspecified pre-existing diabetes mellitus in , first trimester; Translations: [Unspecified pre-existing diabetes mellitus in , first trimester] Onset: 07-16-2017 08-27-2017 Chronic Essential hypertension (5 sources) Hypertensive disorder; Translations: [Essential (primary) hypertension] 08-27-2017 Chronic Other diseases of kidney and ureters (1 source) Other specified disorders of kidney and ureter; Translations: [OTHER SPEC DISORDERS KIDNEY URETER] Onset: 11-19-2021 Chronic Spondylosis; intervertebral disc disorders; other back problems (1 source) Lumbago with sciatica, left side; Translations: [LUMBAGO WITH SCIATICA LEFT SIDE] Onset: 08-17-2022 Episodic Unclassified (5 sources) Maternal care for low transverse scar from previous delivery; Translations: [Maternal care for low transverse scar from previous delivery] Onset: 07-16-2017 07-16-2017 Unclassified (1 source) LOW BACK PAIN, UNSPECIFIED; Translations: [LOW BACK PAIN, UNSPECIFIED] Onset: 08-17-2022 Viral infection (1 source) COVID-19; Translations: [COVID-19] Onset: 11-19-2021 Past or Other Problems Problem Classification Problem Date Documented Da te Episodic/Chronic Genitourinary symptoms and ill-defined conditions (4 sources) Dysuria; Translations: [Dysuria] Onset: 08-27-2017 08-27-2017 Episodic Inflammation, infection of eye (4 sources) Acute conjunctivitis; Translations: [Unspecified acute conjunctivitis, left eye] Onset: 08-27-2017 08-27-2017 Episodic Normal and/or delivery (8 sources) Gestation period, 15 weeks; Translations: [Gestation period, 13 weeks] Onset: 08-13-2017 08-29-2017 Episodic Other aftercare (1 source) shelter (current) use of oral hypoglycemic drugs; Translations: [RETIREMENT USE ORAL HYPOGLYCEMIC DX] Onset: 11-19-2021 Episodic Other circulatory disease (11 sources) H/O: hypertension; Translations: [Personal history of other diseases of the circulatory system] Onset: 07-16-2017 08-27-2017 Episodic Other complications of (19 sources) Urinary tract infection in ; Translations: [High risk ] Onset: 07-16-2017 07-18-2017 Episodic Other lower respiratory disease (2 sources) Hemoptysis; Translations: [HEMOPTYSIS] Onset: 11-19-2021 Episodic Other lower respiratory disease (1 source) Other disorders of lung; Translations: [OTHER DISORDERS OF LUNG] Onset: 11-19-2021 Episodic Other upper respiratory infections (4 sources) Acute maxillary sinusitis; Translations: [Acute maxillary sinusitis, unspecified] Onset: 08-27-2017 08-27-2017 Episodic Results Test Name Value Interpretation Reference Range Facil ity Vital Signs Date Time Vital Sign Value Performing Clinician Facility 05-22-2022 02:06-0400 Body temperature 98.6 [degF] ALAD FONTANEZ DO [facility] 05-22-2022 02:06-0400 Diastolic blood pressure 77 mm[Hg] ALDA FONTANEZ DO [facility] 05-22-2022 02:06-0400 Heart rate 92 /min ALDA SANDRAKA DO [facility] 05-22-2022 02:06-0400 Respiratory rate 18 /min ALDA FONTANEZ DO [facility] 05-22-2022 02:06-0400 Systolic blood pressure 150 mm[Hg] ALDA FONTANEZ DO [facility] 08-27-2017 15:09-0400 BMI (Body Mass Index) 34 kg/m2 Alfonzo Lee METEOROLOGIST [employer] Work Phone: 08-27-2017 15:09-0400 Body Temperature 99.2 [degF] Alfonzo Kempder METEOROLOGIST [employer] Work Phone: 08-27-2017 15:09-0400 BP Diastolic 85 mm[Hg] Alfonzo Kempder METEOROLOGIST [facility] Work Phone: 08-27-2017 15:09-0400 BP Systolic 124 mm[Hg] Alfonzo Kempder METEOROLOGIST [facility] Work Phone: 08-27-2017 15:09-0400 Height 177.8 cm Alfonzo Kempder METEOROLOGIST [employer] Work Phone: 08-27-2017 15:09-0400 Pulse (Heart Rate) 94 /min Alfonzo Kempder METEOROLOGIST [facility] Work Phone: 08-27-2017 15:09-0400 Respiratory Rate 16 /min Alfonzo Kempder METEOROLOGIST [employer] Work Phone: 08-27-2017 15:09-0400 Weight 107.5 kg Alfonzo Kempder METEOROLOGIST [employer] Work Phone: 08-13-2017 10:09-0400 BMI (Body Mass Index) 34.73 kg/m2 [facility] Work Phone: 08-13-2017 10:09-0400 Body Temperature 98 [degF] [facility] Work Phone: 08-13-2017 10:09-0400 BP Diastolic 75 mm[Hg] [facility] Work Phone: 08-13-2017 10:09-0400 BP Systolic 123 mm[Hg] [facility] Work Phone: 08-13-2017 10:09-0400 Pulse (Heart Rate) 87 /min [facility] Work Phone: 08-13-2017 10:09-0400 Respiratory Rate 16 /min [facility] Work Phone: 08-13-2017 10:09-0400 Weight 106.69 kg [employer] Work Phone: 08-04-2017 07:48-0400 Height 175.26 cm [facility] Work Phone: 07-16-2017 09:09-0400 Body Temperature 98.01 [degF] [facility] Work Phone: 07-16-2017 09:09-0400 Height 175.26 cm [facility] Work Phone: 07-16-2017 09:09-0400 Weight 107.23 kg [employer] Work Phone: Encounters Encounter Date Encounter Type Care Provider Facility Start: 12-30-2022 End: 12-30-2022 ambulatory MD [facility] Start: 07-26-2022 End: 07-27-2022 [facility] Start: 05-22-2022 End: 05-22-2022 Emergency department patient visit ALDA FONTANEZ DO [facility] Start: 11-13-2021 End: 11-13-2021 Emergency department patient visit CLAUDIO BARRERA [facility] Start: 12-29-2018 End: 12-29-2018 Emergency department patient visit ABHIJEET ARELLANO Facility:B Procedures Date Procedure Procedure Detail Performing Clinician Start: 07-16-2017 End: 07-26-2017 *CBC with Differential Ainsley turner MD Work Phone: Start: 07-16-2017 End: 07-26-2017 *CMP Complete Metabolic Panel Ainsley fischer MD Work Phone: Start: 07-16-2017 End: 07-26-2017 *HEBSAG - Hep B Surface Antigen 6510 Ainsley Calderon MD Work Phone: Start: 07-16-2017 End: 07-26-2017 *HIV antibody Ainsley Calderon MD Work Phone: Start: 07-16-2017 End: 07-26-2017 *MISC - Miscellaneous Lab Test #1 Ainsley Calderon MD Work Phone: Start: 07-16-2017 End: 07-17-2017 *TS Type and Screen Ainsley Calderon MD Work Phone: Start: 07-16-2017 End: 07-17-2017 Creatinine [Mass/time] in 24 hour Urine Ainsley Calderon MD Work Phone: Start: 07-16-2017 End: 07-17-2017 Creatinine [Mass/volume] in Serum or Plasma Ainsley Calderon MD Work Phone: Start: 07-16-2017 End: 07-17-2017 Electrocardiogram Ainsley Calderon MD Work Phone: Start: 07-16-2017 End: 07-26-2017 Hemoglobin A1c/Hemoglobin.total in Blood Ainsley Calderon MD Work Phone: Start: 07-16-2017 End: 07-17-2017 Protein [Mass/time] in 24 hour Urine Ainsley Calderon MD Work Phone: Start: 07-16-2017 End: 07-26-2017 Reagin Ab [Presence] in Serum by RPR Ainsley Calderon MD Work Phone: Start: 07-16-2017 End: 07-26-2017 Rubella virus Ab [Units/volume] in Serum Ainsley Calderon MD Work Phone: Start: 07-16-2017 End: 07-26-2017 Thyrotropin [Units/volume] in Serum or Plasma Ainsley Calderon MD Work Phone: Start: 07-16-2017 End: 07-26-2017 Thyroxine (T4) [Mass/volume] in Serum or Plasma Ainsley Calderon MD Work Phone: section ALDA RAMIREZ DO Plan of Treatment Date Care Activity Detail Author Start: 09-24-2017 End: 09-24-2017 Appointment Appointment [facility] Work Phone: Start: 09-10-2017 End: 09-10-2017 Appointment Appointment [facility] Start: 08-27-2017 End: 08-27-2017 Follow Up Appt 1 month Follow Up Appt 1 month [facility] Work Phone: Start: 08-27-2017 End: 08-27-2017 Urinalysis complete panel - Urine *UAC- Urinalysis, Complete w/ Micro [facility] Work Phone: Start: 08-27-2017 End: 08-27-2017 Appointment Appointment [facility] Work Phone: Start: 07-30-2017 End: 07-30-2017 *HIV antibody *HIV antibody [facility] Work Phone: Start: 07-16-2017 End: 07-16-2017 *CBC with Differential *CBC with Differential [facility] Work Phone: Start: 07-16-2017 End: 07-16-2017 *CMP Complete Metabolic Panel *CMP Complete Metabolic Panel [facility] Work Phone: Start: 07-16-2017 End: 07-17-2017 *EKG (Done in Hospital) *EKG (Done in Hospital) [facility] Work Phone: Start: 07-16-2017 End: 07-16-2017 *GC/Chlamydia *GC/Chlamydia [facility] Work Phone: Start: 07-16-2017 End: 07-17-2017 *HEBSAG - Hep B Surface Antigen 6510 *HEBSAG - Hep B Surface Antigen 6510 [facility] Work Phone: Start: 07-16-2017 End: 07-17-2017 *HIV antibody *HIV antibody [facility] Work Phone: Start: 07-16-2017 End: 07-17-2017 *MISC - Miscellaneous Lab Test #1 *MISC - Miscellaneous Lab Test #1 [facility] Work Phone: Start: 07-16-2017 End: 07-17-2017 *TS Type and Screen *TS Type and Screen [facility] Work Phone: Start: 07-16-2017 End: 07-17-2017 Consult to Other Specialty Consult to Other Specialty [facility] Work Phone: Start: 07-16-2017 End: 07-17-2017 Creatinine *Creatinine Clearance 24 Hour, Urine [facility] Work Phone: Start: 07-16-2017 End: 07-17-2017 Creatinine [Mass/time] in 24 hour Urine *UCRE 24Hr Urine Creatinine [facility] Work Phone: Start: 07-16-2017 End: 07-16-2017 Hemoglobin A1c/Hemoglobin.total mass fraction (Bld) *HgA1C [facility] Work Phone: Start: 07-16-2017 End: 07-17-2017 Protein [Mass/time] in 24 hour Urine *PROU Assay, Protein, Urine, Total (24 HR) [facility] Work Phone: Start: 07-16-2017 End: 07-17-2017 Reagin antibody presence *[facility] Work Phone: Start: 07-16-2017 End: 07-16-2017 Rubella virus Ab [Units/volume] in Serum *Rubella Screen [facility] Work Phone: Start: 07-16-2017 End: 07-16-2017 Thyroid stimulating hormone (TSH) *TSH [facility] Work Phone: Start: 07-16-2017 End: 07-16-2017 Thyroxine (T4) *T4 TT4 (Thyroxine Total) [facility] Work Phone: Start: 07-16-2017 End: 07-16-2017 Urine culture, bacteria *CUUR - Culture, Urine (Lyle Count) [facility] Work Phone: Payers Date Payer Category Payer Unknown [id number] 1989 Unknown [id number] 1989 Unknown [id number] 1989 Unknown [id number] 1959 Unknown [id number] Social History Date Type Detail Facility Tobacco smoking status Never smo ked tobacco (finding) [facility] Sex Assigned At Sex [facility] Functional Status Date Assessment Result Facility 05-22-2022 Functional Status Independent [facility] 05-22-2022 Functional Status ID band on, Call device within reach, Bed in low position, Wheels locked [facility] Mental Status Date Assessment Result Facility 05-22-2022 Mental Status Orientation Oriented x 4 [facility] 05-22-2022 Mental Status [facility] Discharge instructions 05-22-2022 Note Date & Type Note Facility 05-22-2022 Hospital Discharg e instructions Patient Education 05/22/2022 03:43:32 Diet for Vomiting or Diarrhea (Adult) Diet for Vomiting or Diarrhea (Adult) Your symptoms may return or get worse after eating certain foods listed below. If this happens, stop eating these foods until your symptoms ease and you feel better. Once the vomiting stops, follow the steps below. During the first 12 to 24 hours During the first 12 to 24 hours, follow this diet: Drinks. Plain water, sport drinks like electrolyte solutions, soft drinks without caffeine, mineral water (plain or flavored), clear fruit juices, and decaffeinated tea and coffee. Soups. Clear broth. Desserts. Plain gelatin, popsicles, and fruit juice bars. As you feel better, you may add 6 to 8 ounces of yogurt per day. If you have diarrhea, don't have foods or drinks that contain sugar, high-fructose corn syrup, or sugar alcohols. During the next 24 hours During the next 24 hours you may add the following to the above: Hot cereal, plain toast, bread, rolls, and crackers Plain noodles, rice, mashed potatoes, and chicken noodle or rice soup Unsweetened canned fruit (but not pineapple) and bananas Don't eat more than 15 grams of fat a day. Do this by staying away from margarine, butter, oils, mayonnaise, sauces, gravies, fried foods, peanut butter, meat, poultry, and fish. Don't eat much fiber. Stay away from raw or cooked vegetables, fresh fruits (except bananas), and bran cereals. Limit how much caffeine and chocolate you have. Do not use any spices or seasonings except salt. During the next 24 hours Slowly go back to your normal diet, as you feel better and your symptoms ease. [id number] [email or web address]. [address] [place] [address], [place] [address]. All rights reserved. This information is not intended as a substitute for professional medical care. Always follow your healthcare professional's instructions. 05/22/2022 03:43:30 Vomiting (Adult) Vomiting (Adult) Vomiting is a common symptom that may be due to different causes. These include gastroenteritis ( stomach flu ), food poisoning and gastritis. There are other more serious causes of vomiting which may be hard to diagnose early in the illness. Therefore, it is important to watch for the warning signs listed below. The main danger from repeated vomiting is dehydration. This is due to excess loss of water and minerals from the body. When this occurs, your body fluids must be replaced. Home care If symptoms are severe, rest at home for the next 24 hours. Because your symptoms may be from an infection, wash your hands often and well. If soap and water are not available, use alcohol-based junior high school teacher to keep from spreading the infection to others. Wash your hands for at least 20 seconds. Humming the happy birthday song twice while you wash is an easy way to make sure you've washed for 20 seconds. Wash your hands after using the toilet, before and after preparing food, before eating food, after changing a diaper, cleaning a wound, caring for a sick person, and blowing your nose, coughing, or sneezing. You should also wash your hands after caring for someone who is sick, touching pet food, or treats, and touching an animal, or animal waste. You may use acetaminophen or NSAID medicines like ibuprofen or naproxen to control fever, unless another medicine was prescribed. If you have chronic liver or kidney disease or ever had a stomach ulcer or gastrointestinal bleeding, talk with your doctor before using these medicines. Aspirin should never be used in anyone under 18 years of age who is ill with a fever. It may cause severe liver damage. Don't use NSAID medicines if you are already taking one for another condition (like arthritis) or are on aspirin (such as for heart disease, or after a stroke) Don't use tobacco and or drink alcohol, which may worsen your symptoms. If medicines for vomiting were prescribed, take as directed. Once vomiting stops, then follow these guidelines: During the first 12 to 24 hours follow the diet below: Fruit juices. Apple, grape juice, clear fruit drinks, and electrolyte replacement drinks. Beverages. Soft drinks without caffeine; mineral water (plain or flavored), decaffeinated tea and coffee. Soups. Clear broth and bouillon Desserts. Plain gelatin, ice pops, and fruit juice bars. As you feel better, you may add 6 to 8 ounces of yogurt per day. During the next 24 hours you may add the following to the above: Hot cereal, plain toast, bread, rolls, crackers Plain noodles, rice, mashed potatoes, chicken noodle or rice soup Unsweetened canned fruit such as applesauce, bananas (avoid pineapple and citrus) Limit caffeine and chocolate. No spices or seasonings except salt. During the next 24 hours: Gradually resume a normal diet, as you feel better and your symptoms lessen. Follow-up care Follow up with your healthcare provider, or as advised. When to seek medical advice Call your healthcare provider right away if any of these occur: Constant right-sided lower belly pain or increasing general belly pain Continued vomiting (unable to keep liquids down) for 24 hours Vomiting blood or coffee grounds Swollen belly Frequent diarrhea (more than 5 times a day); blood (red or black color) or mucus in diarrhea Reduced urine output or extreme thirst Weakness, dizziness or fainting Unusually drowsy or confused Fever of 100.4 F (38 C) oral or higher, or as directed Yellow color of the eyes or skin [id number] [email or web address]. [address] [place] [address]. All rights reserved. This information is not intended as a substitute for professional medical care. Always follow your healthcare professional's instructions. Follow Up Care 05/22/2022 02:04:28 With:Follow up with primary care provider Address:Unknown When:2-4 days With:PHYSICIAN, NOT RECORDED Address:Unknown When:2-4 days [facility] Clinical Note 05-22-2022 Note Date & Type Note Facility 05-22-2022 Note Discharge Instructions Thank you for allowing [facility] to assist you with your healthcare needs. The following is important discharge information regarding your hospital visit. Diagnosis from Today's Visit Abdominal pain Vomiting What to Do Next Instructions from Your Care Team No qualifying data available. Post Acute Orders No qualifying data available. You Need to Schedule the Following Appointments Follow Up with Follow up with primary care provider When Within 2-4 days Follow Up with PHYSICIAN, NOT RECORDED When Within 2-4 days Allergies NKA Medications Please ask your primary doctor or pharmacist before taking any other medication not listed, including over the counter drugs, herbal medications, vitamins and or supplements as they may interact with your home medications. What How Much When Instructions Last Dose New ondansetron (ondansetron 4 mg oral tablet, disintegrating) 1 tab(s) by mouth Every 8 hours as needed for as needed for nausea/vomiting Duration: 3 Days Printed Prescription Unchanged diphenhydrAMINE (Benadryl) As needed for Nasal congestion Unchanged loratadine (Claritin) 10 Milligram As needed for allergies Please take this list to your next doctor s visit. Bring all medications you take, including over the counter medications, herbals and other supplements with you to your doctor s visit. Patients and families are reminded to discard old lists and to update any records with all medication providers or retail pharmacies. Education Materials Diet for Vomiting or Diarrhea (Adult) Your symptoms may return or get worse after eating certain foods listed below. If this happens, stop eating these foods until your symptoms ease and you feel better. Once the vomiting stops, follow the steps below. During the first 12 to 24 hours During the first 12 to 24 hours, follow this diet: Drinks. Plain water, sport drinks like electrolyte solutions, soft drinks without caffeine, mineral water (plain or flavored), clear fruit juices, and decaffeinated tea and coffee. Soups. Clear broth. Desserts. Plain gelatin, popsicles, and fruit juice bars. As you feel better, you may add 6 to 8 ounces of yogurt per day. If you have diarrhea, don't have foods or drinks that contain sugar, high-fructose corn syrup, or sugar alcohols. During the next 24 hours During the next 24 hours you may add the following to the above: Hot cereal, plain toast, bread, rolls, and crackers Plain noodles, rice, mashed potatoes, and chicken noodle or rice soup Unsweetened canned fruit (but not pineapple) and bananas Don't eat more than 15 grams of fat a day. Do this by staying away from margarine, butter, oils, mayonnaise, sauces, gravies, fried foods, peanut butter, meat, poultry, and fish. Don't eat much fiber. Stay away from raw or cooked vegetables, fresh fruits (except bananas), and bran cereals. Limit how much caffeine and chocolate you have. Do not use any spices or seasonings except salt. During the next 24 hours Slowly go back to your normal diet, as you feel better and your symptoms ease. [id number] [email or web address]. [address] [place] [address], [place] [address]. All rights reserved. This information is not intended as a substitute for professional medical care. Always follow your healthcare professional's instructions. Vomiting (Adult) Vomiting is a common symptom that may be due to different causes. These include gastroenteritis ( stomach flu ), food poisoning and gastritis. There are other more serious causes of vomiting which may be hard to diagnose early in the illness. Therefore, it is important to watch for the warning signs listed below. The main danger from repeated vomiting is dehydration. This is due to excess loss of water and minerals from the body. When this occurs, your body fluids must be replaced. Home care If symptoms are severe, rest at home for the next 24 hours. Because your symptoms may be from an infection, wash your hands often and well. If soap and water are not available, use alcohol-based junior high school teacher to keep from spreading the infection to others. Wash your hands for at least 20 seconds. Humming the happy birthday song twice while you wash is an easy way to make sure you've washed for 20 seconds. Wash your hands after using the toilet, before and after preparing food, before eating food, after changing a diaper, cleaning a wound, caring for a sick person, and blowing your nose, coughing, or sneezing. You should also wash your hands after caring for someone who is sick, touching pet food, or treats, and touching an animal, or animal waste. You may use acetaminophen or NSAID medicines like ibuprofen or naproxen to control fever, unless another medicine was prescribed. If you have chronic liver or kidney disease or ever had a stomach ulcer or gastrointestinal bleeding, talk with your doctor before using these medicines. Aspirin should never be used in anyone under 18 years of age who is ill with a fever. It may cause severe liver damage. Don't use NSAID medicines if you are already taking one for another condition (like arthritis) or are on aspirin (such as for heart disease, or after a stroke) Don't use tobacco and or drink alcohol, which may worsen your symptoms. If medicines for vomiting were prescribed, take as directed. Once vomiting stops, then follow these guidelines: During the first 12 to 24 hours follow the diet below: Fruit juices. Apple, grape juice, clear fruit drinks, and electrolyte replacement drinks. Beverages. Soft drinks without caffeine; mineral water (plain or flavored), decaffeinated tea and coffee. Soups. Clear broth and bouillon Desserts. Plain gelatin, ice pops, and fruit juice bars. As you feel better, you may add 6 to 8 ounces of yogurt per day. During the next 24 hours you may add the following to the above: Hot cereal, plain toast, bread, rolls, crackers Plain noodles, rice, mashed potatoes, chicken noodle or rice soup Unsweetened canned fruit such as applesauce, bananas (avoid pineapple and citrus) Limit caffeine and chocolate. No spices or seasonings except salt. During the next 24 hours: Gradually resume a normal diet, as you feel better and your symptoms lessen. Follow-up care Follow up with your healthcare provider, or as advised. When to seek medical advice Call your healthcare provider right away if any of these occur: Constant right-sided lower belly pain or increasing general belly pain Continued vomiting (unable to keep liquids down) for 24 hours Vomiting blood or coffee grounds Swollen belly Frequent diarrhea (more than 5 times a day); blood (red or black color) or mucus in diarrhea Reduced urine output or extreme thirst Weakness, dizziness or fainting Unusually drowsy or confused Fever of 100.4 F (38 C) oral or higher, or as directed Yellow color of the eyes or skin [id number] The [employer]. [address] [place] [address]. All rights reserved. This information is not intended as a substitute for professional medical care. Always follow your healthcare professional's instructions. Additional Information VACCINATE! IT SAVES LIVES! Members of the community who have not yet received the COVID-19 vaccine and would like to receive it can visit one of [facility] vaccine clinics. There are many vaccine clinic locations within the [facility]. For locations and available times, please visit [email or web address]. It is important to note that some COVID mobile vaccine clinics are held outdoors and may be canceled in rainy or stormy conditions. To learn more about pediatric vaccinations (ages 5-11), we invite you to visit the [facility] webpage. [email or web address] To learn more about the COVID-19 vaccine, we invite you to visit the [facility] website for a list of frequently asked questions. [email or web address] [facility] Patient Portal Access Instructions: Stay connected with your healthcare team and access your personal medical information anytime with the [facility] Patient Portal. If you would like a full copy of your medical records please contact the [facility] Medical Records Department Wednesday through Wednesday between 8a.m. and 4:30p.m. Please follow the directions below to access the portal: 1.Access the email account you provided upon registration to the [facility].2.Look for an invitation email from [facility].3.Open the email and access the invitation link: Accept Invitation to [email or web address].Fill in the required mcgee to create your account. Sign into [email or web address] with your username and password that you created in the above steps to stay up to date. You can then view a summary of results, a summary of your visits, and the ability to download your summaries to your computer or send the information securely to a physician. Remember that your healthcare information is confidential, so carefully consider who you will allow to register on the [facility] Patient Portal for access to your information. You can also access the [email or web address] Patient Portal on the [employer] rosalba. Simply click on Health Records under Health Data and then click on the [facility] logo. HOW TO SAFELY DISPOSE OF PRESCRIPTION MEDICATIONS Please use one of the following methods to safely dispose of your unused medications. 1.Use a drug disposal kit: the drug disposal pouch allows you to safely discard your old and unused drugs. Ask your nurse to give you one when you are discharged.2.Visit a local take-back location: Many local pharmacies and police departments have programs that collect old and unwanted prescription drugs. Call your local pharmacy or go to http://bit.PanOptica/5B6Td2k to find one close to you.3.Make use of household items: Use cat litter or old coffee grounds to dispose medications if other options are not available. Mix your drugs with these household products, seal them in an airtight container and throw it into the garbage. Call [facility]: [phone] to be sure your drugs can be disposed of in this way. Some medicines may require a different approach.4.Never flush your medications down the toilet. IF YOU HAVE BEEN PRESCRIBED AN OPIOIDS FOR PAIN If you have been prescribed an opioid (such as hydrocodone, oxycodone or morphine), it is critical to understand the possible side effects and risks of opioid pain medications. Even when taken as directed, opioids can have several side effects including: Tolerance, meaning you might need to take more of a medication for the same pain relief. Nausea, vomiting and/or constipation. Sleepiness, dizziness, dry mouth, confusion, depression or itching. Physical dependence, meaning you have withdrawal symptoms when a medication is stopped ? this can develop within a few days. KNOW YOUR RESPONSIBILITIES It is important to know exactly how much and how often to take the opioid pain medications you are prescribed. Never take opioids in higher amounts or more often than prescribed. Do not combine opioids with alcohol or other drugs that cause drowsiness, such as benzodiazepines, also known as benzos, including diazepam and alprazolam, muscle relaxants or sleep aids. Never sell or share prescription opioids. This is illegal. Store opioids in a secure place and out of reach of others (including children, family, friends and visitors). The last page(s) of this document has been signed and retained as a CHART COPY Signatures Patient Education Materials Diet for Vomiting or Diarrhea (Adult) Vomiting (Adult) Medication Leaflets My discharge plan and instructions have been reviewed and explained to me and IGLORIA TRISTA N understand my current condition and have read and understand these discharge instructions. I have received a written copy of the plan/instructions. If I have questions, I am aware that I should contact my doctor. 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: _ Date/Time: Relationship to Patient: Witness Name/Signature: Date/Time: [facility] Evaluation + Plan note Note Date & Type Note Facility Evaluation + Plan note No data available for this section [facility] Summary Purpose Family History No Family History Records FoundNo Family History Records FoundNo Family History Records FoundNo Family History Records Found Advance Directives No Advanced Directives Records FoundNo Advanced Directives Records FoundNo Advanced Directives Records FoundNo Advanced Directives Records Found Additional Source Comments INFORMATION SOURCE (unrecogn ized section and content) DATE CREATED AUTHOR AUTHOR'S ORGANIZ ATION 09/03/2021 [facility] DATE CREATED AUTHOR AUTHOR'S ORGANIZ ATION 08/18/2022 [facility] DATE CREATED AUTHOR AUTHOR'S ORGANIZ ATION 01/01/2023 [facility] Care Team (unrecognized sect ion and content) Care Team Personnel Name: PHYSICIAN, NOT RECORDED Member Role: Primary Care Physician Care Team Related Persons Name: RJ MOORE Address: Home [address] [place] [address] Name: MARY ANN MOORE Address: Home [address] [place], [place] [address] Name: CASTRO RAMANA Woo Address: Home [address] [place] [address] US FOR RECORDS PERTAINING TO PATIENTS WHO ARE OR HAVE BEEN ENROLLED IN A CHEMICAL DEPENDENCY/SUBSTANCEABUSE PROGRAM, SOME INFORMATION MAY BE OMITTED. This clinical summary was aggregated from multiple sources. Caution should be exercised in using it in the provision of clinical care. This summary normalizes information from multiple sources, and as a consequence, information in this document may materially change the coding, format and clinical context of patient data. In addition, data may be omitted in some cases. CLINICAL DECISIONS SHOULD BE BASED ON THE PRIMARY CLINICAL RECORDS. [facility] [employer] provides no warranty or guarantee of the accuracy or completeness of information in this document.
[2023-12-13 12:08] LABS: Vitamin D 1,25-Dihydroxy 27.4 pg/mL (24.8-81.5)
== END | disposition home or self-care (01) ==
LOC: LAB 16:34
PROVIDERS: PCP Internal Medicine; Referring Provider Obstetrics & Gynecology; Visit Provider Obstetrics & Gynecology
DX: N92.1 Excessive and frequent menstruation with irregular cycle (principal)
CPT/HCPCS: 36415; 82607; 82652; 82728; 84443; 85025

== ENCOUNTER → 2023-12-17 | Outpatient (CLI) | payer MEDICAID, SELFPAY ==
--- NOTE | 2023-12-17 15:57 | US_ITS ---
INDICATION: Abnormal uterine bleeding EXAMINATION: Ultrasound US Pelvis Non OB Complete With Transvaginal Imaging TECHNIQUE: Transabdominal and transvaginal pelvic ultrasound was performed. Grayscale, spectral waveform, and color flow Doppler evaluation of the adnexa. COMPARISON: 03/11/2022 FINDINGS: UTERUS: Anteverted. The uterus measures 8.3 x 6.3 x 5.0 cm. Hypoechoic fibroids present, largest measures up to 1.6 cm. The endometrial stripe measures 5 mm in AP diameter which is within normal limits. Prominent scar. RIGHT OVARY: 3.0 x 2.7 x 2.6 cm. Non-enlarged, normal echogenicity. Color flow demonstrated, no waveforms obtained. LEFT OVARY: 2.8 x 2.7 x 1.9 cm. Non-enlarged, normal echogenicity. Color flow demonstrated, no waveforms obtained. FREE FLUID: None. US/Pelvic w/ Transvaginal IMPRESSION: Fibroid uterus. No acute findings in the pelvis. Electronically Signed: Leodan Weinstein MD at 19:26 EST ,
--- OUTSIDE RECORDS SUMMARY | 2023-12-17 18:43 | XMS RPT_ITS | CCD ---
Author Name Unknown Address [address] [place] [address] Organization [facility] Care Team Providers Care Pipeline Technician Name Role Phone Rosa LEANDRA, Alfonzo Lora Unavailable Unavailable Ainsley Calderon MD Unavailable [phone] [employer] Unavailable ABHIJEET ARELLANO Attending Unavailable PHYSICIAN, [...] tablet by mouth twice daily AMOXICILLIN-POT CLAVULANATE [id number] Alfonzo Lee SUPPLY CHAIN VICE PRESIDENT-C GLUCOSE BLOOD (12 sources) Start: 07-16-2017 End: 10-15-2025 FREESTYLE LITE TEST STRP Check blood glucose fasting and 2 hours post prandial and occ at bedtime GLUCOSE BLOOD [id number] Yasmine Martinez ICT CUSTOMER SUPPORT OFFICER Problems Active Problems Problem Classification Problem Date [...] 08-13-2017 08-29-2017 Episodic Other aftercare (1 source) nursing home (current) use of oral hypoglycemic drugs; Translations: [PRISON USE ORAL HYPOGLYCEMIC DX] Onset: 11-19-2021 Episodic [...] Facility 05-22-2022 02:06-0400 Body temperature 98.6 [degF] ALDA FONTANEZ DO [facility] 05-22-2022 02:06-0400 Diastolic blood pressure 77 mm[Hg] ALDA FONTANEZ DO [facility] 05-22-2022 02:06-0400 Heart rate 92 /min ALDA SANDRAKA DO [facility] 05-22-2022 02:06-0400 Respiratory rate 18 /min ALDA FONTANEZ DO [facility] 05-22-2022 02:06-0400 Systolic blood pressure 150 mm[Hg] ALAD FONTANEZ DO [facility] 08-27-2017 15:09-0400 BMI (Body Mass Index) 34 kg/m2 Alfonzo Lee SUPPLY CHAIN VICE PRESIDENT-C [facility] Work Phone: 08-27-2017 15:09-0400 Body Temperature 99.2 [degF] Alfonzo Kempder SUPPLY CHAIN VICE PRESIDENT-C [facility] Work Phone: 08-27-2017 15:09-0400 BP Diastolic 85 mm[Hg] Alfonzo Kempder SUPPLY CHAIN VICE PRESIDENT-C [facility] Work Phone: 08-27-2017 15:09-0400 BP Systolic 124 mm[Hg] Alfonzo Kempder SUPPLY CHAIN VICE PRESIDENT-C [facility] Work Phone: 08-27-2017 15:09-0400 Height 177.8 cm Alfonzo Kempder SUPPLY CHAIN VICE PRESIDENT-C [facility] Work Phone: 08-27-2017 15:09-0400 Pulse (Heart Rate) 94 /min Alfonzo Kempder SUPPLY CHAIN VICE PRESIDENT-C [facility] Work Phone: 08-27-2017 15:09-0400 Respiratory Rate 16 /min Alfonzo Kempder SUPPLY CHAIN VICE PRESIDENT-C [facility] Work Phone: 08-27-2017 15:09-0400 Weight 107.5 kg Alfonzo Kempder SUPPLY CHAIN VICE PRESIDENT-C [facility] Work Phone: 08-13-2017 10:09-0400 BMI (Body Mass Index) 34.73 kg/m2 [facility] Work Phone: 08-13-2017 10:09-0400 Body Temperature 98 [degF] [employer] Work Phone: 08-13-2017 10:09-0400 BP Diastolic 75 mm[Hg] [employer] Work Phone: 08-13-2017 10:09-0400 BP Systolic 123 mm[Hg] [employer] Work Phone: 08-13-2017 10:09-0400 Pulse (Heart Rate) 87 /min [employer] Work Phone: 08-13-2017 10:09-0400 Respiratory Rate 16 /min [employer] Work Phone: 08-13-2017 10:09-0400 Weight 106.69 kg [employer] Work Phone: 08-04-2017 07:48-0400 Height 175.26 cm [employer] Work Phone: 07-16-2017 09:09-0400 Body Temperature 98.01 [degF] [employer] Work Phone: 07-16-2017 09:09-0400 Height 175.26 cm [employer] Work Phone: 07-16-2017 09:09-0400 Weight 107.23 kg [employer] Work Phone: Encounters Encounter Date Encounter Type Care Provider Facility Start: 12-30-2022 End: 12-30-2022 ambulatory MD [facility] Start: 07-26-2022 End: 07-27-2022 [facility] Start: 05-22-2022 End: 05-22-2022 Emergency department patient visit ALDA FONTANEZ DO [facility] Start: 11-13-2021 End: 11-13-2021 Emergency department patient visit CLAUDIO BARRERA [facility] Start: 12-29-2018 End: 12-29-2018 Emergency department patient [...] Author Start: 09-24-2017 End: 09-24-2017 Appointment Appointment [facility] Work Phone: Start: 09-10-2017 End: 09-10-2017 Appointment Appointment [facility] Start: 08-27-2017 End: 08-27-2017 Follow Up Appt 1 month Follow Up Appt 1 month [facility] Work Phone: Start: 08-27-2017 End: 08-27-2017 Urinalysis complete panel - Urine *UAC- Urinalysis, Complete w/ Micro [facility] Work Phone: Start: 08-27-2017 End: 08-27-2017 Appointment Appointment [employer] Work Phone: Start: 07-30-2017 End: 07-30-2017 *HIV antibody *HIV antibody [employer] Work Phone: Start: 07-16-2017 End: 07-16-2017 *CBC with Differential *CBC with Differential [employer] Work Phone: Start: 07-16-2017 End: 07-16-2017 *CMP Complete Metabolic Panel *CMP Complete Metabolic Panel [employer] Work Phone: Start: 07-16-2017 End: 07-17-2017 *EKG (Done in Hospital) *EKG (Done in Hospital) [employer] Work Phone: Start: 07-16-2017 End: 07-16-2017 *GC/Chlamydia *GC/Chlamydia [facility] Work Phone: Start: 07-16-2017 End: 07-17-2017 *HEBSAG - Hep B Surface Antigen 6510 *HEBSAG - Hep B Surface Antigen 6510 [facility] Work Phone: Start: 07-16-2017 End: 07-17-2017 *HIV antibody *HIV antibody [facility] Work Phone: Start: 07-16-2017 End: 07-17-2017 *MISC - Miscellaneous Lab Test #1 *MISC - Miscellaneous Lab Test #1 [facility] Work Phone: Start: 07-16-2017 End: 07-17-2017 *TS Type and Screen *TS Type and Screen [facility] Work Phone: Start: 07-16-2017 End: 07-17-2017 Consult to Other Specialty Consult to Other Specialty [facility] Work Phone: Start: 07-16-2017 End: 07-17-2017 Creatinine *Creatinine Clearance 24 Hour, Urine [facility] Work Phone: Start: 07-16-2017 End: 07-17-2017 Creatinine [Mass/time] in 24 hour Urine *UCRE 24Hr Urine Creatinine [facility] Work Phone: Start: 07-16-2017 End: 07-16-2017 Hemoglobin A1c/Hemoglobin.total mass fraction (Bld) *HgA1C [facility] Work Phone: Start: 07-16-2017 End: 07-17-2017 Protein [Mass/time] in 24 hour Urine *PROU Assay, Protein, Urine, Total (24 HR) [facility] Work Phone: Start: 07-16-2017 End: 07-17-2017 Reagin antibody presence *RPR [facility] Work Phone: Start: 07-16-2017 End: 07-16-2017 Rubella virus Ab [Units/volume] in Serum *Rubella Screen [facility] Work Phone: Start: 07-16-2017 End: 07-16-2017 Thyroid stimulating hormone (TSH) *TSH [facility] Work Phone: Start: 07-16-2017 End: 07-16-2017 Thyroxine (T4) *T4 TT4 (Thyroxine Total) [facility] Work Phone: Start: 07-16-2017 End: 07-16-2017 Urine culture, bacteria *CUUR - Culture, Urine ([place] Count) [facility] Work Phone: Payers Date Payer Category Payer Unknown [id number] 1989 Unknown [id number] 1989 Unknown [id number] 1989 Unknown [id number] 1960 Unknown [id number] Social History Date Type Detail Facility Tobacco smoking status Never smo ked tobacco (finding) [facility] Sex Assigned At Sex [facility] Functional Status Date Assessment Result Facility 05-22-[address] [facility] 05-22-2022 Functional Status ID band on, Call device within reach, Bed in low position, Wheels locked [facility] Mental Status Date Assessment Result Facility 05-22-2022 Mental Status Orientation Oriented x 4 [facility] 05-22-2022 Mental Status [facility] Discharge instructions 05-22-2022 Note Date & [...] you feel better and your symptoms ease. [id number] [employer] [address] [place] [address], [place] [address]. All rights reserved. This information is not [...] and water are not available, use alcohol-based editorial director to keep from spreading the infection to [...] Yellow color of the eyes or skin 2427-5463 [employer]. [address] [place] [address]. All rights reserved. This information is not intended as a substitute for professional medical care. Always follow your healthcare professional's instructions. Follow Up Care 05/22/2022 02:04:28 With:Follow up with primary care provider Address:Unknown When:2-4 days With:PHYSICIAN, NOT RECORDED Address:Unknown When:2-4 days [facility] Clinical Note 05-22-2022 Note Date & Type Note Facility 05-22-2022 Note Discharge Instructions Thank you for allowing [facility] to assist you with your healthcare needs. [...] you feel better and your symptoms ease. [phone] [employer] [address] [place] [address], [place] [address]. All rights reserved. This information is not [...] and water are not available, use alcohol-based editorial director to keep from spreading the infection to [...] Yellow color of the eyes or skin 6205-5219 [employer] [address] [place] [address]. All rights reserved. This information is not intended as a substitute for professional medical care. Always follow your healthcare professional's instructions. Additional Information VACCINATE! IT SAVES LIVES! Members of the community who have not yet received the COVID-19 vaccine and would like to receive it can visit one of [facility] vaccine clinics. There are many vaccine clinic locations within the [facility]. For locations and available times, please visit [email or web address]. It is important to note that some COVID mobile vaccine clinics are held outdoors and may be canceled in rainy or stormy conditions. To learn more about pediatric vaccinations (ages 5-11), we invite you to visit the [facility] webpage. [email or web address]/[email or web address]-[email or web address]-Frequently-[email or web address] -Questions.html To learn more about the COVID-19 vaccine, we invite you to visit the [facility] website for a list of frequently asked questions. [email or web address] [email or web address] [facility] Patient Portal Access Instructions: Stay connected with your healthcare team and access your personal medical information anytime with the [facility] Patient Portal. If you would like a full copy of your medical records please contact the [facility] Medical Records Department Wednesday through Wednesday between 8a.m. and 4:30p.m. Please follow the directions below to access the portal: 1.Access the email account you provided upon registration to the [facility].2.Look for an invitation email from [facility].3.Open the email and access the invitation link: Accept Invitation to [facility].Fill in the required mcgee to create your account. Sign into [email or web address] with your username and password that you [...] you will allow to register on the [facility] Patient Portal for access to your information. You can also access the [facility] Patient Portal on the [employer]salba. Simply click on Health Records under [...] Call your local pharmacy or go to http://bit.[employer]/6N8Cf7m to find one close to you.3.Make use of household items: Use cat litter or old coffee grounds to dispose medications if other options are not available. Mix your drugs with these household products, seal them in an airtight container and throw it into the garbage. Call [facility]: [phone] to be sure your drugs can be [...] aware that I should contact my doctor. 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 Signature: _ Date/Time: Relationship to Patient: Witness Name/Signature: Date/Time: [facility] Evaluation + Plan note Note Date & Type Note Facility Evaluation + Plan note No data available for this section [facility] Summary Purpose Family History No Family History Records FoundNo Family History Records FoundNo Family History Records FoundNo Family History Records Found Advance Directives No Advanced Directives Records FoundNo Advanced Directives Records FoundNo Advanced Directives Records FoundNo Advanced Directives Records Found Additional Source Comments INFORMATION SOURCE (unrecogn ized section and content) DATE CREATED AUTHOR AUTHOR'S ORGANIZ ATION 09/03/2021 [facility] DATE CREATED AUTHOR AUTHOR'S ORGANIZ ATION 08/18/2022 [facility] DATE CREATED AUTHOR AUTHOR'S ORGANIZ ATION 01/01/2023 [facility] Care Team (unrecognized sect ion and content) Care Team Personnel Name: PHYSICIAN, NOT RECORDED Member Role: Primary Care Physician Care Team Related Persons Name: RJ MOORE Address: Home [address] [place] [address] Name: MARY ANN MOORE Address: Home [address] [place], [place] [address] Name: CSATRO RAMANA Woo Address: Home [address] [place] [address] US FOR RECORDS PERTAINING TO PATIENTS WHO [...] BE BASED ON THE PRIMARY CLINICAL RECORDS. [facility] [employer] provides no warranty or guarantee of the accuracy or completeness of information in this document.
== END | disposition home or self-care (01) ==
LOC: US 15:56
PROVIDERS: PCP Internal Medicine; Referring Provider Obstetrics & Gynecology; Visit Provider Obstetrics & Gynecology
DX: N92.1 Excessive and frequent menstruation with irregular cycle (principal)
CPT/HCPCS: 76830; 76856

== ENCOUNTER → 2024-01-05 | Outpatient (CLI) | payer MEDICAID, SELFPAY ==
--- NOTE | 2024-01-05 | EMB_PTH ---
PATHOLOGY RESULTS PATIENT: EVA CASTRO LOC: [facility] U#:[id number] AGE/SX: 33/F ROOM: RE01/05/[address]: YVES Escobedo : 1990 BED: DIS: 01/05/2024 SPEC #: [id number] RECD: 01/05/24 13:21 STATUS: JAYSON REMc #: [id number] BRITTANY: 01/05/24 00:[address]: Patricia Patel NP DEPT: SURGICAL PATHOLOGY RECD BY: Nara Hamilton ENTERED: 01/05/24 13:21 SP TYPE: ENDOM BX/C VIVIANE DR: Dr. Phuong Shetty MD Tissues: Endometrium, NOS Procedures: Surgery Specimen Level IV HEADER OPERATION: Endometrial Biopsy PRE-OP DIAGNOSIS: Abnormal Uterine Bleeding TISSUE SUBMITTED: Endometrial Lining MICROSCOPIC DIAGNOSIS Endometrium, biopsy; Secretory endometrium. 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 AM/mr 01/06/24 MICROSCOPIC DESCRIPTION Slides are reviewed. GROSS DESCRIPTION Received is one container labeled with the patient's name and not further designated. The specimen consists of multiple irregular fragments of stark pink soft tissue that in aggregate measure 5.0 x 3.0 x 0.3 cm. The specimen is totally submitted in two cassettes. ROBERT/ 01/05/2024 TC:5 CPT: 74590
== END | disposition home or self-care (01) ==
LOC: LABSPEC 12:58
PROVIDERS: PCP Internal Medicine; Referring Provider Nurse Practitioner Women's Health; Visit Provider Nurse Practitioner Women's Health
DX: N93.9 Abnormal uterine and vaginal bleeding, unspecified (principal)
CPT/HCPCS: 88305

== ENCOUNTER 2024-02-08 10:59 | Day surgery (SDC) | payer MEDICAID, SELFPAY ==
--- NOTE | 2024-02-08 06:00 | PCM.HP.BLA ---
History and Physical Date of Admission: 02/08/24 Intake Vital Signs 06/17/2314:33 07/08/2320:26 01/30/2409:20 01/30/2409:21 Height 5 ft 7 in 5 ft 7 in 5 ft 7 in 5 ft 7 in Weight: 210 lb BMI 32.5 32.8 BP 112/79 116/87 H Intake Visit Reasons: [facility] Exercise Planner Required: No Is patient in pain?: No Allergies clindamycin Allergy (Verified 01/31/24 09:21) Hives Medications albuterol sulfate 90 mcg/actuation aerosol inhaler 1 - 2 puff inhalation Q4H PRN PRN Wheezing ##1 11/11/16 [Rx Confirmed 01/31/24] cholecalciferol (vitamin D3) 25 mcg (1,000 unit) capsule 25 mcg PO DAILY 04/02/21 [History Confirmed 01/31/24] ferrous sulfate 325 mg (65 mg iron) tablet 325 mg PO DAILY 05/11/23 [History Confirmed 01/31/24] vitamin B complex (B Complex-Vitamin B12 tablet) 1 tab PO DAILY 06/17/23 [History Confirmed 01/31/24] fexofenadine 60 mg tablet (Ira Allergy) 120 mg PO DAILY 01/25/24 [History Confirmed 01/31/24] misoprostol 200 mcg tablet (Cytotec) 200 mcg PO .complex #2 tabs 01/31/24 [Rx Confirmed 01/31/24] Is last menstrual period known: No Post menopausal: No Patient : No : No PFSH Medical History (Updated 01/25/24 @ 08:34 by Teri Rivero) Asthma Back pain Dysmenorrhea Headache, menstrual migraine History of pneumonia Low iron Migraine headache Non-smoker PONV (postoperative nausea and vomiting) Preeclampsia Seasonal allergies Shortness of breath on exertion Spinal headache Toxemia of Vitamin deficiency Wears contact lenses Wears glasses Surgical History H/O hernia repair H/O LEEP H/O oral surgery H/O: History of colposcopy L shoulder surgery Family History Grandmother Lung disease ArthritisFather Diabetes Anxiety Hypertension HyperlipemiaMother Parkinsons disease Anxiety Depression Hypertension HyperlipemiaAunt Breast cancerGrandfather CancerBrother Hypertension Social History household members: family housing: condominium number of children: 1 current occupational status: employed 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 she has been having persite heavy irregualr painful menses, can't take hormones due to migraines and failed lysteda. she failed to have an emb due to cervical stenosis, risk of precancerous/cancerous changes discussed. Female Reproductive History Menopausal Symptoms: No night sweats History 1 Elective abortions Hx Para 1 Spontaneous abortions Hx # Term Pregnancies 1 Ectopic pregnancies Hx # Pregnancies Multiple births # of living children 1 Past Pregnancies Del. Date Name GA/Weeks Outcome Route Bth Weight [facility]07 Rashaun 42 live - full term 9'9 Female 12hrs none [facility] tizzano ROS Const Constitutional: Denies fatigue, night sweats, weight gain or weight loss ENT ENT: Reports system reviewed and no additional complaints, except as documented Cardio Card: Denies chest pain Resp Resp: Denies cough or dyspnea GI GI: Reports as per HPI; Denies abdominal pain, constipation, nausea or vomiting : Denies nipple discharge, urinary frequency, urinary incontinence, urinary hesitancy, urinary urgency, vaginal discharge, vaginal dryness, vaginal odor or vaginal pruritus Musc Musc: Denies arthralgias, back pain or muscle weakness Skin Skin/Breast: Denies alopecia, change in hair, dry skin, breast mass, breast pain, breast skin changes or nipple discharge Neuro Neuro: Reports system reviewed and no additional complaints, except as documented Psych Psych: Reports system reviewed and no additional complaints, except as documented Endo Endo: Denies cold intolerance, excessive sweating, heat intolerance or polydipsia Kaleb/Lymph Hematologic/Lymphatic: Denies easy bleeding, Denies easy bruising and Denies lymphadenopathy Exam Const General: cooperative, healthy appearing, comfortable and no acute distress Orientation: alert HENMT Head: normal to inspection and normocephalic Ears: hearing grossly normal bilaterally and external ears normal Nose: external nose normal and nares normal Face and sinus: normal facial exam Neck Neck: normal visual inspection and no lymphadenopathy Thyroid: thyroid normal Chest Chest palpation & inspection: normal inspection of the chest Resp Effort & Inspection: normal respiratory effort Auscultation: clear to auscultation bilaterally Cardio Rate: regular rate Rhythm: regular rhythm Heart Sounds: S1 normal and S2 normal GI Inspection: normal to inspection and non-distended Palpation: soft and no hepatosplenomegaly Musc Other: gross motor intact no deficits, full bilateral strength Skin General: no rashes or lesions noted Neuro General: patient alert, patient awake, moves all extremities and no focal motor deficits Motor: muscle tone normal throughout Extrem General: normal to inspection and no pedal edema Psych Appearance: grossly normal Mental Status: mental status grossly normal Affect: normal affect Speech and Movement: speech and movement normal Coding Level of Care Code No Charge Diagnoses Abnormal uterine bleeding N93.9 Cervical stenosis (uterine cervix) N88.2 Assessment and Plan Assessment and Plan (1) Abnormal uterine bleeding: Status: Acute Comment: reviewed cbc tsh US, trial lysteda. not hormonal candidate due to migraines, failed IUD in past, discussed ablation versus LAVHBS. plan LAVHBS in december or january (2) Cervical stenosis (uterine cervix): Status: Acute Comment: unable to perform EMB Medications: New misoprostol (Cytotec) take the night before and two hours prior to the procedure 2 tabs 1RF Plan After discussing the patient's diagnosis and treatment plan options, patient wishes to proceed with surgical management. I have discussed with the patient the risks, benefits, and alternatives of the procedure which include but are not limited to risks of anesthesia, bleeding, infection, possible damage to bowel, bladder, or surrounding vasculature which could lead to additional surgery to evaluate any complications. Patient agrees to procedure and wishes to proceed. ACOG/uptodate references given for additional information regarding procedure. UPDATE- I have seen the patient and performed any clinically relevant updates to the history and physical exam. Ainsley Calderon MD
[2024-02-08] MEDS: Lactated Ringers 1,000 ML 15 ML IV (11:52)
[2024-02-08 11:56] LABS: Internal QC Validated? YES +Cl - CLEAR BKGD; Pregnancy, Urine Negative Negative
[2024-02-08 11:57] VITALS: BP 151/89; PULSE 80; RESP 16; TEMP 36.3; O2SAT 100; BMI 32.5
[2024-02-08 11:58] LABS: Hematocrit 36.6 % (37-47); Hemoglobin 12.4 g/dL (12.0-15.0); Mean Corp Hgb Conc 33.9 g/dL (32-36); Mean Corpuscular Hgb 28.9 pg (27.0-32.0); Mean Corpuscular Volume 85.3 fL (81-99); Platelet Count 248 K/mm3 (150-450); RBC Distribution Width CV 13.3 % (11.6-14.6); RBC Distribution Width SD 41.3 fl (35.1-43.9); Red Blood Count 4.29 M/mm3 (4.2-5.4); White Blood Count 7.8 K/mm3 (4.4-11.0)
[2024-02-08 12:20] LABS: Bedside Glucose 110 mg/dL (74-106)
--- NOTE | 2024-02-08 12:35 | EMB_PTH ---
PATIENT: EVA CASTRO LOC: [facility] U#:[id number] AGE/SX: 33/F ROOM: RE02/08/[address]: Dr. Ainsley Calderon MD : 1990 BED: DIS: 02/08/2024 SPEC #: [id number] RECD: 02/09/24 05:49 STATUS: JAYSON SOLITARIO #: [id number] BRITTANY: 02/08/24 12:[address]: Ainsley Calderon DEPT: SURGICAL PATHOLOGY RECD BY: Flora Shaw ENTERED: 02/09/24 09:01 SP TYPE: ENDOM BX/C VIVIANE DR: Dr. Phuong Shetty MD Tissues: Endometrium, NOS Procedures: Surgery Specimen Level IV HEADER OPERATION: Hysteroscopy, D&C, Angélica PRE-OP DIAGNOSIS: Abnormal uterine bleeding TISSUE SUBMITTED: Endometrial Curettings MICROSCOPIC DIAGNOSIS Endometrial Curettings: Weekly secretory endometrium with extensive glandular and stromal breakdown. Fragments of benign endocervical mucosa with chronic inflammation. / 02/10/2024 MICROSCOPIC DESCRIPTION Slides are reviewed. GROSS DESCRIPTION Received in fixative is one container labeled with the patient's name and designated Endometrial Curettings. The specimen consists of multiple irregular fragments of hemorrhagic soft tissue that in aggregate measure 5.0 x 3.0 x 0.2 cm. The specimen is totally submitted in two cassettes. / 02/09/24 TC:5 CPT:73059
[2024-02-08] MEDS: Lidocaine 1% (20 ml mdv) 20 ML Vial (13:20)
--- NOTE | 2024-02-08 13:26 | OP.PCM_ITS ---
Problems Associated Problem List Diagnoses (1) Menorrhagia with irregular cycle: (2) Tubal ligation status: Report of Operation Date of Procedure: 02/08/24 Pre-Operative Diagnosis: see problem list Post-Operative Diagnosis: same Surgery/Procedure Performed:: d and c hysteroscopy angélica ablation Description of Surgical Findings:: nl uterine cavity Surgeon: Ainsley Calderon credit and loan collections supervisor: None Type of Anesthesia: Local MAC Special Medications: none Specimen's removed: emc Drains: none Estimated Blood Loss (mL): 50 Fluids Replaced: crystalloid Description of Procedure: Patient was prepped and draped in a normal sterile fashion under MAC anesthesia. A weighted speculum was placed in the vagina and the anterior lip of the cervix was grasped with a single-tooth tenaculum. A paracervical block was placed with 1% lidocaine. Cervix was progressively dilated to allow passage of a 5 mm hysteroscope. The lining was fully visualized and noted to have thickened sloughing endometrium . Uterine sounded to 9 cm. Curettage was performed and tissue removed , sent to pathology. The Angélica device was opened and the cavity length was found to be 4.5 cm. Device was inserted into the uterus and balloon inflated and device deployed. Integrity of the cavity was confirmed and a 2 minute treatment cycle was completed without complication. All instruments were removed from the vagina and excellent hemostasis was noted. Patient was awoken and taken to recovery in stable condition. Grafts/Implants Used: none Procedure Start Time: 13:18 Procedure Stop Time: 13:24 Complications none Admit VTE Documentation VTE Present on Admission: No VTE Mechan Device Prophylaxis: SCD's Multi Select Codes Urinary/Genital Urinary/Genital CPT Codes: 54937 Angélica/Novasure
--- NOTE | 2024-02-08 13:28 | DCINST_ITS ---
Discharge Instructions Diet Discharge Diet: No restrictions Activity Discharge Activity: Return to Normal Activity, May Shower and May Take a Tub Bath (after 1 week) May resume sexual activity in: 1-2 weeks Weight Bearing Status: Weight bearing as tolerated Lifting Restrictions: none Dressing / Incision Call your doctor if you observe: Fever of 101 or Higher, Using more than 1 pad per hour, Shortness of breath and Uncontrolled pain Follow Up Care Please Follow Up With: Ainsley Calderon MD When: Call [phone] to schedule appointment. Test Results: Test results from this visit will be discussed in further detail at your follow- up appointment, if applicable. Discharge Plan Admission Attending Provider: Ainsley Calderon Primary Care Provider: Phuong Shetty Discharge Orders/Prescriptions Prescriptions: No Action (DME) FreeStyle Lite Strips Strip See Rx Instructions .ROUTE .MEDSUPPLY Qty: 100 6RF Rx Instructions: As directed magnesium 200 mg tablet 200 mg PO DAILY PRN (Reason: LEG CRAMPS) multivitamin Tablet 1 tab PO DAILY clotrimazole-betamethasone 1-0.05 % cream 1 applic topical BID 14 Days Qty: 45 1RF cholecalciferol (vitamin D3) [D3-2000] 50 mcg (2,000 unit) capsule 10,000 unit PO DAILY biotin 10 mg tablet 10 mg PO DAILY buspirone 5 mg tablet 5 mg PO BID PRN (Reason: anxiety) metformin 500 mg tablet 500 mg PO BID Qty: 180 3RF Referrals / Follow Up: Phuong Shetty MD [Primary Care Provider] - Disposition Disposition (needs filled in before D/C Order can be placed): Home, Self Care
[2024-02-08 13:37] VITALS: BP 136/78; BP 151/89; PULSE 73; RESP 16; TEMP 36.2; O2SAT 96
[2024-02-08 13:40] VITALS: BP 134/77; BP 151/89; PULSE 76; RESP 16; O2SAT 98
[2024-02-08 13:45] VITALS: BP 136/82; BP 151/89; PULSE 82; RESP 16; O2SAT 98
[2024-02-08 13:50] VITALS: BP 139/84; BP 151/89; PULSE 81; RESP 16; TEMP 36.4; O2SAT 100
[2024-02-08 14:10] VITALS: BP 151/89
== END 2024-02-08 14:31 | disposition home or self-care (01) ==
LOC: SDC 11:00 → AC 11:01
PROVIDERS: PCP Internal Medicine; Referring Provider Obstetrics & Gynecology; Visit Provider Obstetrics & Gynecology
PROC: 0U5B8ZZ Destruction of Endometrium, Via Natural or Artificial Opening Endoscopic (ICD-10-PCS; CPT 58558; principal; 2024-02-08 12:20)
DX: N71.1 Chronic inflammatory disease of uterus (principal); E11.9 Type 2 diabetes mellitus without complications; N92.1 Excessive and frequent menstruation with irregular cycle; N93.9 Abnormal uterine and vaginal bleeding, unspecified; G43.909 Migraine, unspecified, not intractable, without status migrainosus; J45.909 Unspecified asthma, uncomplicated; N88.2 Stricture and stenosis of cervix uteri; Z98.51 Tubal ligation status; N88.8 Other specified noninflammatory disorders of cervix uteri; Z79.84 Long term (current) use of oral hypoglycemic drugs
CPT/HCPCS: 58563; 00952; 81025; 82962; 85027; 86850; 86900; 86901; 88305; J7120; J2405

== ENCOUNTER → 2024-05-24 | Outpatient (CLI) | payer MEDICAID, SELFPAY ==
[2024-05-24 11:37] LABS: Absolute Lymphocyte Count 2.25 X10^3/uL (0.83-4.51); Absolute Neutrophil Count 4.2 X10^3/uL (2.0-7.7); Basophil# 0.04 X10^3/uL; Basophil% 0.5 % (0-1); Eosinophil# 0.47 X10^3/uL; Eosinophils% 6.1 % (0-5); Hematocrit 37.5 % (37-47); Hemoglobin 12.3 g/dL (12.0-15.0); Lymphocyte # 2.25 X10^3/ul (0.83-4.51); Lymphocyte % 29.2 % (19-41); Mean Corp Hgb Conc 32.8 g/dL (32-36); Mean Corpuscular Hgb 27.8 pg (27.0-32.0); Mean Corpuscular Volume 84.8 fL (81-99); Mean Platelet Vol. 11.9 fl (6.2-12.0); Monocyte# 0.74 X10^3/uL; Monocyte% 9.6 % (0-10); NRBC Flagged by Analyzer 0 % (0-5); Neutrophil # 4.17 X10^3/uL (2.7-7.7); Neutrophil % 54.2 % (47-70); Platelet Count 246 K/mm3 (150-450); RBC Distribution Width CV 13.6 % (11.6-14.6); RBC Distribution Width SD 42.2 fl (35.1-43.9); Red Blood Count 4.42 M/mm3 (4.2-5.4); White Blood Count 7.7 K/mm3 (4.4-11.0)
[2024-05-24 11:51] LABS: Hemoglobin A1c 6.7 % (3.8-5.6)
[2024-05-24 12:10] LABS: Vitamin B12 397 pg/mL (211-911); Vitamin D,25 Hydroxy 36.1 ng/mL
[2024-05-24 12:14] LABS: ALB/GLOB Ratio 0.8 RATIO (0.9-2.4); AST(SGOT) 19 U/L (15-37); Alanine Aminotransfer ALT/SGPT 23 U/L (13-56); Albumin, Serum 3.6 g/dL (3.2-5.0); Alkaline Phosphatase 36 U/L (45-117); Anion Gap 5 (5-15); BUN 9 mg/dL (7-18); BUN/Creat Ratio 15.9 RATIO (10-20); Calcium,Total 9.3 mg/dL (8.5-10.1); Chloride 106 mmol/L (98-107); Cholesterol 196 mg/dL (200); Creatinine, Serum 0.57 mg/dL (0.55-1.02); EST Glomerular Filtration Rate 130 mL/min (>60); Est Glom Filt Rate - Afr Amer 157 mL/min (>60); Free T3 2.6 pg/mL (2.18-3.98); Globulin 4.3 g/dL (2.2-4.2); Glucose 147 mg/dL (74-106); High Density Lipoprotein 44 mg/dL; Potassium 4.2 mmol/L (3.5-5.1); Protein, Total 7.9 g/dL (6.4-8.2); Sodium Level 137 mmol/L (136-145); Thyroid Stim Hormone (TSH) 1.14 uIU/mL (0.358-3.74); Triglycerides 127 mg/dL; Very Low Density Lipoprotein 25 mg/dL (5-40)
[2024-05-25 11:09] LABS: Insulin Level 34.4 uIU/mL (2.6-24.9)
== END | disposition home or self-care (01) ==
PROVIDERS: PCP Internal Medicine; Referring Provider Internal Medicine; Visit Provider Internal Medicine
DX: Z13.220 Encounter for screening for lipoid disorders (principal); E88.819 Insulin resistance, unspecified; E55.9 Vitamin D deficiency, unspecified; E53.8 Deficiency of other specified B group vitamins; R73.9 Hyperglycemia, unspecified
CPT/HCPCS: 36415; 80053; 80061; 82306; 82607; 83036; 83525; 84439; 84443; 84481; 85025

== ENCOUNTER → 2024-09-14 | Outpatient (CLI) | payer MEDICAID, SELFPAY ==
[2024-09-14 12:56] LABS: Hemoglobin A1c 6.2 % (3.8-5.6)
[2024-09-14 13:05] LABS: AST(SGOT) 21 U/L (15-37); Alanine Aminotransfer ALT/SGPT 32 U/L (13-56); Albumin, Serum 3.9 g/dL (3.2-5.0); Alkaline Phosphatase 39 U/L (45-117); Anion Gap 7 (5-15); BUN 12 mg/dL (7-18); BUN/Creat Ratio 20.4 RATIO (10-20); Calcium,Total 9.5 mg/dL (8.5-10.1); Chloride 105 mmol/L (98-107); Creatinine, Serum 0.59 mg/dL (0.55-1.02); EST Glomerular Filtration Rate 124 mL/min (>60); Est Glom Filt Rate - Afr Amer 150 mL/min (>60); Globulin 3.9 g/dL (2.2-4.2); Glucose 101 mg/dL (74-106); Potassium 4.1 mmol/L (3.5-5.1); Protein, Total 7.8 g/dL (6.4-8.2); Sodium Level 139 mmol/L (136-145)
== END | disposition home or self-care (01) ==
LOC: LAB 11:49
PROVIDERS: PCP Internal Medicine; Referring Provider Internal Medicine; Visit Provider Internal Medicine
DX: E11.9 Type 2 diabetes mellitus without complications (principal); E88.819 Insulin resistance, unspecified
CPT/HCPCS: 36415; 80053; 83036

== ENCOUNTER → 2024-10-31 | Outpatient (CLI) | payer MEDICAID, SELFPAY | END | disposition home or self-care (01) | LOC: BWCLAB 14:05 | PROVIDERS: PCP Internal Medicine; Referring Provider Nurse Practitioner Women's Health; Visit Provider Nurse Practitioner Women's Health | DX: N89.8 Other specified noninflammatory disorders of vagina (principal) | CPT/HCPCS: 87070; 87205 ==

== ENCOUNTER → 2025-02-14 | Outpatient (CLI) | payer MEDICAID, SELFPAY ==
[2025-02-14 10:50] LABS: Absolute Lymphocyte Count 2.42 X10^3/uL (0.83-4.51); Absolute Neutrophil Count 4.2 X10^3/uL (2.0-7.7); Basophil# 0.04 X10^3/uL; Basophil% 0.5 % (0-1); Eosinophil# 0.46 X10^3/uL; Eosinophils% 5.9 % (0-5); Hematocrit 37.7 % (37-47); Hemoglobin 12.8 g/dL (12.0-15.0); Lymphocyte # 2.42 X10^3/ul (0.83-4.51); Lymphocyte % 30.8 % (19-41); Mean Corpuscular Hgb 29.9 pg (27.0-32.0); Mean Corpuscular Volume 88.1 fL (81-99); Mean Platelet Vol. 12.3 fl (6.2-12.0); Monocyte# 0.63 X10^3/uL; NRBC Flagged by Analyzer 0 % (0-5); Neutrophil # 4.24 X10^3/uL (2.7-7.7); Platelet Count 217 K/mm3 (150-450); RBC Distribution Width CV 13.1 % (11.6-14.6); RBC Distribution Width SD 42.3 fl (35.1-43.9); Red Blood Count 4.28 M/mm3 (4.2-5.4); White Blood Count 7.9 K/mm3 (4.4-11.0)
[2025-02-14 12:47] LABS: Hemoglobin A1c 7.7 % (<=5.6)
[2025-02-14 13:31] LABS: ALB/GLOB Ratio 1.3 RATIO (0.9-2.4); AST(SGOT) 41 U/L (<=31); Alanine Aminotransfer ALT/SGPT 46 U/L (<=34); Albumin, Serum 4.1 g/dL (3.5-5.0); Alkaline Phosphatase 38 U/L (35-104); Anion Gap 14 (5-15); BUN 8 mg/dL (4-19); BUN/Creat Ratio 14.4 RATIO (10-20); Bilirubin, Direct 0.16 mg/dL (0.00-0.30); Calcium,Total 9.3 mg/dL (7.6-11.0); Carbon Dioxide 21.2 mmol/L (21.0-32.0); Chloride 104 mmol/L (98-108); Cholesterol 184 mg/dL (<=200); Creatinine, Serum 0.57 mg/dL (0.70-1.20); EST Glomerular Filtration Rate 121 (>60); Globulin 3.1 g/dL (2.2-4.2); Glucose 135 mg/dL (70-99); Hepatitis B Surface Antibody Nonreactive; Hepatitis B Surface Antigen Nonreactive (Nonreactive); Hepatitis C Antibody Nonreactive (Nonreactive); High Density Lipoprotein 40 mg/dL; Low Density Lipoprotein Calc. 110 mg/dL; Potassium 4.3 mmol/L (3.3-5.1); Protein, Total 7.2 g/dL (5.9-8.4); Sodium Level 139 mmol/L (133-145); Total Bilirubin 0.38 mg/dL (0.00-1.30); Triglycerides 166 mg/dL; Very Low Density Lipoprotein 33 mg/dL (5-40); cholesterol:hdl ratio screen 4.55
[2025-02-14 13:33] LABS: Free T3 2.7 pg/mL (2.18-3.98); Thyroid Stim Hormone (TSH) 0.728 uIU/mL (0.300-4.200); Vitamin B12 444 pg/mL (180-914); Vitamin D,25 Hydroxy 19.6 ng/mL (30-100)
[2025-02-14 14:07] LABS: D-Dimer Quantitative (DVT/PE) 0.66 FEU/ug/m (0.27-0.49)
[2025-02-17 11:08] LABS: Hepatitis B Core Ab Total Negative (Negative); QNTFERON TB Mitogen Value > 10.00 IU/mL (.); QNTFERON TB Nil Value 0.08 IU/mL (.); QNTFERON TB1+ Ag Value 0.08 IU/mL (.); QNTFERON TB2+ Ag Value 0.05 IU/mL (.); QNTIFERON TB Positive Criteria Negative (Negative)
== END | disposition home or self-care (01) ==
PROVIDERS: PCP Internal Medicine
DX: L40.0 Psoriasis vulgaris (principal); Z79.899 Other long term (current) drug therapy; L71.8 Other rosacea
CPT/HCPCS: 36415; 80053; 80061; 82248; 82306; 82607; 83036; 84439; 84443; 84481; 85025; 85379; 86480; 86704; 86706; 86803; 87340